=== PATIENT | male | born 1930 | race Caucasian/White ===

== ENCOUNTER 2016-12-06 19:40 | Observation (INO) | payer MEDICARE ==
--- NOTE | 2016-12-06 20:06 | EDM.PDOC ---
ED HPI GENERAL MEDICAL PROBLEM - General Chief Complaint: Respiratory Problem Stated Complaint: hard time breathing Time Seen by Provider: 12/06/16 20:03 Source of Information: Reports: Patient History Limitations: Reports: No Limitations - History of Present Illness INITIAL COMMENTS - FREE TEXT/NARRATIVE: states 2 months h/o sob, can't move about as much due to sob, no chest pain but his legs ache all the time, did see PMD but got no pills for his problems so he uses cold rag on his legs then rest and do nothing then pain goes away. Bilateral Leg Pain Score (Numeric/FACES): 4 - Related Data Allergies Allergy/AdvReac Type Severity Reaction Status Date / Time hydrochlorothiazide Allergy Fainting Verified 12/06/16 19:50 Home Meds: Home Meds Aspirin/Calcium Carbonate/Mag [Aspirin Buffered 325 mg Tab] 325 mg PO DAILY [History] Furosemide [Lasix] 20 mg PO DAILY 12/27/13 [History] Lisinopril [Lisinopril] 5 mg PO DAILY 12/27/13 [History] Metoprolol Succinate [Toprol Xl] 50 mg PO BID 12/27/13 [History] Oxazepam [Oxazepam] 15 mg PO BID PRN 12/27/13 [History] Warfarin [Coumadin] 5 mg PO DAILY 12/27/13 [History] Nitroglycerin 0.4 mg SL ATDISCHARGE PRN 06/07/14 [History] Past Medical History Cardiovascular History: Reports: Afib, CAD, High Cholesterol, Hypertension Psychiatric History: Reports: Anxiety - Infectious Disease History Infectious Disease History: Reports: Chicken Pox, Measles, Mumps - Past Surgical History Cardiovascular Surgical History: Reports: Coronary Artery Bypass, Coronary Artery Stent Social & Family History - Family History Family Medical History: Noncontributory - Tobacco Use Smoking Status *Q: Never Smoker Second Hand Smoke Exposure: No - Alcohol Use Days Per Week of Alcohol Use: 7 Number of Drinks Per Day: 1 Total Drinks Per Week: 7 - Recreational Drug Use Recreational Drug Use: No - Living Situation & Occupation Living situation: Reports: , with Spouse Occupation: Retired ED ROS GENERAL - Review of Systems Review Of Systems: ROS reveals no pertinent complaints other than HPI. ED EXAM, GENERAL - Physical Exam Exam: See Below Exam Limited By: No Limitations General Appearance: Alert, WD/WN, No Apparent Distress, Anxious Ears: Hearing Grossly Normal Nose: Normal Inspection Throat/Mouth: Normal Inspection, Normal Oropharynx, Normal Voice, No Airway Compromise Head: Atraumatic Neck: Non-Tender, Full Range of Motion Respiratory/Chest: No Respiratory Distress, No Accessory Muscle Use, Rhonchi. No: Decreased Breath Sounds, Retractions, Splinting, Prolonged Expiration Cardiovascular: Regular Rate, Rhythm GI/Abdominal: Soft, Non-Tender Extremities: Normal Inspection, Normal Range of Motion, Non-Tender, No Pedal Edema Neurological: Alert, Oriented, Normal Cognition, Normal Gait, No Motor/Sensory Deficits Psychiatric: Anxious Skin Exam: Warm, Dry, Normal Color Lymphatic: No Adenopathy Course - Vital Signs Last Recorded V/S: Last Vital Signs Temp 36.5 C 12/06/16 19:46 Pulse 69 12/06/16 19:46 Resp 18 12/06/16 19:46 BP 190/92 H 12/06/16 19:46 Pulse Ox 97 12/06/16 19:46 - Orders/Labs/Meds Orders: Active Orders 24 hr Category Date Time Status EKG 12 Lead [EKG Documentation Completion] [RC] STAT Care 12/06/16 21:17 Active Labs: Laboratory Tests 12/06/16 12/06/16 12/06/16 Range/Units 20:11 20:11 20:11 WBC 8.4 (5.0-10.0) 10^3/uL RBC 5.10 (4.6-6.2) 10^6/uL Hgb 13.8 L (14.0-18.0) g/dL Hct 40.9 (40.0-54.0) % MCV 80.2 (80-100) fL MCH 27.1 (27.0-34.0) pg MCHC 33.7 (33.0-35.0) g/dL Plt Count 196 (150-450) 10^3/uL Neut % (Auto) 60.2 (42.2-75.2) % Lymph % (Auto) 24.2 (20.5-50.1) % [place] % (Auto) 13.3 H (2-8) % Eos % (Auto) 1.8 (1.0-3.0) % Baso % (Auto) 0.5 (0.0-1.0) % PT 26.8 H (9.0-12.0) SEC INR 2.7 H (0.9-1.2) Sodium 130 L (135-145) mmol/L Potassium 5.0 (3.6-5.0) mmol/L Chloride 94 L (101-111) mmol/L Carbon Dioxide 26.0 (21.0-31.0) mmol/L Anion Gap 15.0 BUN 26 H (7-18) mg/dL Creatinine 1.4 H (0.6-1.3) mg/dL Est Cr Clr Drug Dosing 37.17 mL/min Estimated GFR (MDRD) 48 BUN/Creatinine Ratio 18.57 Glucose 99 (74-105) mg/dL Calcium 8.6 (8.4-10.2) mg/dl Total Bilirubin 1.1 H (0.2-1.0) mg/dL AST 23 (10-42) IU/L ALT 14 (10-60) IU/L Alkaline Phosphatase 67 (42-121) IU/L Troponin I 0.03 H* (0.00-0.02) ng/ml B-Natriuretic Peptide 995 H (0-100) pg/ml Total Protein 6.9 (6.7-8.2) g/dl Albumin 3.7 (3.2-5.5) g/dl Globulin 3.2 Albumin/Globulin Ratio 1.16 - Re-Assessments/Exams Free Text/Narrative Re-Assessment/Exam: 12/06/16 21:[address] Lala who kindly admitted pt to observation. Departure - Departure Time of Disposition: 21:37 Disposition: Refer to Observation Condition: Fair Clinical Impression: Pleural effusion, Elevated troponin, LUIS (dyspnea on exertion), Hyponatremia syndrome, Renal insufficiency syndrome Congestive heart failure Qualifiers: Congestive heart failure type: unspecified congestive heart failure type Congestive heart failure chronicity: acute on chronic Qualified Code(s): I50.9 - Heart failure, unspecified - Discharge Information Forms: ED Department Discharge - My Orders Last 24 Hours: My Active Orders 12/06/16 21:17 EKG 12 Lead [EKG Documentation Completion] [RC] STAT - Assessment/Plan Last 24 Hours: My Active Orders 12/06/16 21:17 EKG 12 Lead [EKG Documentation Completion] [RC] STAT
[2016-12-06] MEDS ORDERED: OXAZEPAM 15 MG PO PRN (22:22)
[2016-12-06] MEDS ORDERED: Zolpidem 5 MG Tab PO PRN (22:25)
[2016-12-06] MEDS ORDERED: Acetaminophen 325 MG Tab PO PRN (22:25)
[2016-12-06] MEDS ORDERED: Docusate Sodium 100 MG Cap PO PRN (22:25)
[2016-12-06] MEDS ORDERED: Sodium Chloride 0.9% 10 ML Syringe FLUSH PRN (22:25)
[2016-12-06] MEDS ORDERED: Simvastatin 10 MG Tab PO SCH (22:45)
--- NOTE | 2016-12-06 22:53 | PCM.HP ---
H&P History of Present Illness - General Date of Service: 12/06/16 Admit Problem/Dx: Admission Diagnosis/Problem Admission Diagnosis/Problem Weakness - History of Present Illness Initial Comments - Free Text/Narative: The patient is an 86-year-old gentleman with a history of anxiety, coronary artery disease, diet-controlled diabetes. The patient has been feeling increasing weakness in the past 2 months. He found that this is due to increasing of the imdur from 30-60 mg. His decreased his dose but the weakness did not improve. He admits lots of anxiety and taking benzodiazepine frequently. He also says he is short of breath with activity, shortness of breath is moderate. There is no associated chest pain. There is no cough, fever. Has trace lower extremity edema associated with episodes of leg pain. He lives with his who is equally elderly. He has thought about moving into an assisted living place. Bilateral Leg Pain Score (Numeric/FACES): 4 - Related Data Allergies/Adverse Reactions: Allergies Allergy/AdvReac Type Severity Reaction Status Date / Time hydrochlorothiazide Allergy Fainting Verified 12/06/16 19:50 Home Medications: Home Meds Aspirin/Calcium Carbonate/Mag [Aspirin Buffered 325 mg Tab] 325 mg PO DAILY [History] Furosemide [Lasix] 20 mg PO DAILY 12/27/13 [History] Lisinopril [Lisinopril] 5 mg PO DAILY 12/27/13 [History] Metoprolol Succinate [Toprol Xl] 50 mg PO BID 12/27/13 [History] Oxazepam [Oxazepam] 15 mg PO BID PRN 12/27/13 [History] Warfarin [Coumadin] 5 mg PO DAILY 12/27/13 [History] Nitroglycerin 0.4 mg SL ATDISCHARGE PRN 06/07/14 [History] Past Medical History Cardiovascular History: Reports: Afib, CAD, High Cholesterol, Hypertension Psychiatric History: Reports: Anxiety - Infectious Disease History Infectious Disease History: Reports: Chicken Pox, Measles, Mumps - Past Surgical History Cardiovascular Surgical History: Reports: Coronary Artery Bypass, Coronary Artery Stent Social & Family History - Family History Family Medical History: Noncontributory - Tobacco Use Smoking Status *Q: Never Smoker Second Hand Smoke Exposure: No - Alcohol Use Days Per Week of Alcohol Use: 7 Number of Drinks Per Day: 1 Total Drinks Per Week: 7 - Recreational Drug Use Recreational Drug Use: No - Living Situation & Occupation Living situation: Reports: , with Spouse Occupation: Retired H&P Review of Systems - Review of Systems: Review Of Systems: See Below General: Denies: Fever, Chills Pulmonary: Reports: Shortness of Breath. Denies: Wheezing, Pleuritic Chest Pain Cardiovascular: Reports: Palpitations, Edema. Denies: Chest Pain Gastrointestinal: Denies: Abdominal Pain Psychiatric: Reports: Anxiety Exam - Exam Exam: See Below - Vital Signs Vital Signs: Last Vital Signs Temp 36.6 C 12/06/16 21:58 Pulse 63 12/06/16 21:58 Resp 18 12/06/16 21:58 BP 186/71 H 12/06/16 21:58 Pulse Ox 99 12/06/16 21:58 Weight: 79.379 kg - Exam General: Alert, Oriented, Other (Anxious) Neck: Supple Lungs: Normal Respiratory Effort, Rales (Bilateral) Cardiovascular: Regular Rate, Regular Rhythm, Systolic Murmur Extremities: Pedal Edema (Bilateral 1+) Skin: Warm, Dry Neuro Extensive - Mental Status: Alert, Oriented x3 Psychiatric: Alert, Anxious - Patient Data Result Diagrams: 12/06/16 20:11 12/06/16 20:11 EKG INTERPRETATION EKG Date: 12/06/16 Rhythm: NSR EKG Interpretation Comments: LVH and first-degree AV block *Q Meaningful Use (ADM) - VTE *Q VTE Criteria *Q: - Stroke *Q Stroke Criteria *Q: - AMI *Q AMI Criteria *Q: - Problem List (1) Congestive heart failure SNOMED Code(s): 41912504 ICD Code: I50.9 - HEART FAILURE, UNSPECIFIED Status: Acute Current Visit : Yes Qualifiers: Congestive heart failure type: unspecified congestive heart failure type Congestive heart failure chronicity: acute on chronic Qualified Code(s): I50.9 - Heart failure, unspecified (2) Elevated troponin SNOMED Code(s): 062926733, 105193949 ICD Code: R74.8 - ABNORMAL LEVELS OF OTHER SERUM ENZYMES Status: Acute Current Visit: Yes (3) Hyponatremia syndrome SNOMED Code(s): 2515400 ICD Code: E87.1 - HYPO-OSMOLALITY AND HYPONATREMIA Status: Acute Current Visit: Yes Problem List Initiated/Reviewed/Updated: Yes Orders Last 24hrs: Active Orders 24 hr Category Date Time Status Patient Status [ADT] Routine ADT 12/06/16 22:25 Ordered Antiembolic Devices [RC] PER UNIT ROUTINE Care 12/06/16 22:27 Ordered Oxygen Therapy [RC] PRN Care 12/06/16 22:25 Ordered Peripheral IV Care [RC] . DIRECTED Care 12/06/16 22:27 Ordered Telemetry Monitoring [Cardiac Monitoring] [RC] . Care 12/06/16 22:25 Ordered DIRECTED Up With Assistance [RC] ASDIRECTED Care 12/06/16 22:25 Ordered VTE/DVT Education [RC] PER UNIT ROUTINE Care 12/06/16 22:25 Ordered Vital Signs [RC] Q4H Care 12/06/16 22:25 Ordered OT Evaluation and Treatment [CONS] Routine Cons 12/06/16 22:24 Ordered PT Evaluation and Treatment [CONS] Routine Cons 12/06/16 22:24 Ordered 2 Gram Sodium Diet [DIET] Diet 12/06/16 Breakfast Ordered B-TYPE NATRIURETIC PEPTIDE,BNP [CHEM] AM Lab 12/08/16 05:11 Ordered BASIC METABOLIC PANEL,BMP [CHEM] AM Lab 12/07/16 05:15 Ordered CBC WITH AUTO DIFF [HEME] AM Lab 12/07/16 05:15 Ordered INR,PT,PROTHROMBIN TIME [COAG] AM Lab 12/07/16 05:15 Ordered TROPONIN I [CHEM] AM Lab 12/07/16 05:11 Ordered Acetaminophen [Tylenol] Med 12/06/16 22:25 Ordered 650 mg PO Q4H PRN Aspirin/Calcium Carbonate/Mag [Aspirin Buffered 325 mg Med 12/07/16 09:00 Ordered Tab] 325 mg PO DAILY Docusate Sodium [Colace] Med 12/06/16 22:25 Ordered 100 mg PO BID PRN Furosemide [Lasix] Med 12/06/16 22:30 Ordered 20 mg PO BID Isosorbide Mononitrate [Imdur] Med 12/06/16 22:45 Ordered 30 mg PO ACBREAKFAST Lisinopril [Prinivil] Med 12/07/16 09:00 Ordered 10 mg PO DAILY Metoprolol Succinate [Toprol Xl] Med 12/07/16 09:00 Ordered 50 mg PO BID Oxazepam [Oxazepam] Med 12/06/16 22:22 Ordered 15 mg PO .Q6H PRN Simvastatin [Zocor] Med 12/06/16 22:45 Ordered 80 mg PO BEDTIME Sodium Chloride 0.9% [Saline Flush] Med 12/06/16 22:25 Ordered 10 ml FLUSH ASDIRECTED PRN Warfarin [Coumadin] Med 12/07/16 09:00 Ordered 5 mg PO DAILY Zolpidem [Ambien] Med 12/06/16 22:25 Ordered 5 mg PO BEDTIME PRN Antiembolic Hose [OM.PC] Per Unit Routine Oth 12/06/16 22:26 Ordered Peripheral IV Insertion Adult [OM.PC] Routine Oth 12/06/16 22:25 Ordered Saline Lock Insert [OM.PC] Routine Oth 12/06/16 22:25 Ordered Resuscitation Status Routine Resus Stat 12/06/16 22:25 Ordered Medication Orders Acetaminophen (Tylenol) 650 mg PO Q4H PRN PRN Reason: Pain (Mild 1-3)/fever Docusate Sodium (Colace) 100 mg PO BID PRN PRN Reason: Constipation Furosemide (Lasix) 20 mg PO BIDDIURETIC LOGAN Isosorbide Mononitrate (Imdur) 30 mg PO ACBREAKFAST LOGAN Lisinopril (Prinivil) 10 mg PO DAILY LOGAN Non-Formulary Medication (Aspirin/Calcium Carbonate/Mag [Aspirin Buffered 325 Mg Tab]) 325 mg PO DAILY LOGAN Non-Formulary Medication (Metoprolol Succinate [Toprol Xl]) 50 mg PO BID LOGAN Non-Formulary Medication (Oxazepam [Oxazepam]) 15 mg PO .Q6H PRN PRN Reason: Anxiety Simvastatin (Zocor) 80 mg PO BEDTIME LOGAN Sodium Chloride (Saline Flush) 10 ml FLUSH ASDIRECTED PRN PRN Reason: Keep Vein Open Warfarin Sodium (Coumadin) 5 mg PO DAILY LOGAN Zolpidem Tartrate (Ambien) 5 mg PO BEDTIME PRN PRN Reason: Sleep Assessment/Plan Comment:: #1 weakness This is likely multifactorial including age, acute congestive heart failure, aortic stenosis, anxiety Will ask physical and occupational therapy for an evaluation and treatment #2 acute congestive heart failure Likely due to diastolic dysfunction per Dr. Castellano's notes the patient's most recent echocardiogram in [place] which showed good ejection fraction I will increase the patient's diuretic to twice a day Continue FE inhibitor, metoprolol #3 minimally elevated troponin The patient is hemodynamically stable, no chest pain This is likely secondary to renal insufficiency and congestive heart failure We'll monitor the patient on telemetry, check troponin in the morning Continue treatment for coronary artery disease with aspirin, metoprolol, statin , FE inhibitor #4 hyponatremia Likely chronic Will follow with increased diuretics #5 anxiety continue oxazepam #6 the patient has a history of "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
[2016-12-06] MEDS: ALPRAZolam 0.25 MG Tab PO PRN (23:20)
[2016-12-06] MEDS: Isosorbide Mononitrate 30 MG Tab.ER PO SCH (23:20)
[2016-12-06] MEDS: Furosemide 20 MG Tab PO SCH (23:21)
[2016-12-07] MEDS ORDERED: Lisinopril 5 MG Tab PO SCH (09:00)
[2016-12-07] MEDS ORDERED: Metoprolol Succinate 50 MG Tab.ER PO SCH (09:00)
[2016-12-07] MEDS: Furosemide 20 MG Tab PO SCH ×2 (09:59→14:12)
[2016-12-07] MEDS: Aspirin 325 MG Tab.EC PO SCH (09:59)
[2016-12-07] MEDS: Lisinopril 10 MG Tab PO SCH (09:59)
[2016-12-07] MEDS: ALPRAZolam 0.25 MG Tab PO PRN (10:02)
[2016-12-07] MEDS: OXAZEPAM 15 MG PO PRN ×2 (10:46→18:14)
--- NOTE | 2016-12-07 11:34 | PCM.PN ---
- General Info Date of Service: 12/07/16 Admission Dx/Problem (Free Text): Admission Diagnosis/Problem Admission Diagnosis/Problem Weakness Subjective Update: Feeling better, noted that he had no cough since admission. Had anxiety which improved after he took oxazepam. No current shortness of breath. Functional Status: Reports: Pain Controlled, Tolerating Diet - Review of Systems General: Reports: Weakness. Denies: Fever Pulmonary: Denies: Shortness of Breath Cardiovascular: Denies: Chest Pain Gastrointestinal: Denies: Abdominal Pain Genitourinary: Denies: Dysuria - Patient Data Vitals - Most Recent: Last Vital Signs Temp 37.2 C 12/07/16 07:00 Pulse 56 L 12/07/16 10:00 Resp 22 H 12/07/16 07:00 BP 140/58 L 12/07/16 10:00 Pulse Ox 93 L 12/07/16 07:00 Weight - Most Recent: 79.152 kg I&O - Last 24 Hours: Intake & Output 12/06/16 12/07/16 12/07/16 22:59 06:59 14:59 Intake Total 240 400 Output Total 425 350 Balance -185 50 Lab Results Last 24 Hours: Laboratory Results - last 24 hr 12/07/16 12/07/16 12/07/16 Range/Units 06:00 06:00 06:00 WBC 8.8 (5.0-10.0) 10^3/uL RBC 4.88 (4.6-6.2) 10^6/uL Hgb 13.1 L (14.0-18.0) g/dL Hct 39.0 L (40.0-54.0) % MCV 79.9 L (80-100) fL MCH 26.8 L (27.0-34.0) pg MCHC 33.6 (33.0-35.0) g/dL Plt Count 186 (150-450) 10^3/uL Neut % (Auto) 66.4 (42.2-75.2) % Lymph % (Auto) 17.0 L (20.5-50.1) % [place] % (Auto) 14.3 H (2-8) % Eos % (Auto) 1.8 (1.0-3.0) % Baso % (Auto) 0.5 (0.0-1.0) % PT 24.2 H (9.0-12.0) SEC INR 2.4 H (0.9-1.2) Sodium 131 L (135-145) mmol/L Potassium 4.2 (3.6-5.0) mmol/L Chloride 97 L (101-111) mmol/L Carbon Dioxide 26.0 (21.0-31.0) mmol/L Anion Gap 12.2 BUN 25 H (7-18) mg/dL Creatinine 1.3 (0.6-1.3) mg/dL Est Cr Clr Drug Dosing 40.03 mL/min Estimated GFR (MDRD) 52 Glucose 100 (74-105) mg/dL Calcium 8.4 (8.4-10.2) mg/dl Troponin I 0.04 H* (0.00-0.02) ng/ml Med Orders - Current: Current Medications Acetaminophen (Tylenol) 650 mg PO Q4H PRN PRN Reason: Pain (Mild 1-3)/fever Aspirin (Ecotrin) 325 mg PO DAILY [facility] Last Admin: 12/07/16 09:59 Dose: 325 mg Docusate Sodium (Colace) 100 mg PO BID PRN PRN Reason: Constipation Furosemide (Lasix) 20 mg PO BIDDIURETIC [facility], [facility] Last Admin: 12/07/16 09:59 Dose: 20 mg Isosorbide Mononitrate (Imdur) 30 mg PO ACBREAKFAST [facility] Last Admin: 12/06/16 23:20 Dose: 30 mg Lisinopril (Prinivil) 10 mg PO DAILY [facility] Last Admin: 12/07/16 09:59 Dose: 10 mg Metoprolol Succinate (Toprol Xl) 50 mg PO BID [facility] Last Admin: 12/07/16 10:00 Dose: 50 mg Oxazepam 15mg Pt's (Own Med) 1 each PO Q6H PRN PRN Reason: Anxiety Last Admin: 12/07/16 10:46 Dose: 1 each Sodium Chloride (Saline Flush) 10 ml FLUSH ASDIRECTED PRN PRN Reason: Keep Vein Open Warfarin Sodium (Coumadin) 5 mg PO DAILY@1400 [facility] Zolpidem Tartrate (Ambien) 5 mg PO BEDTIME PRN PRN Reason: Sleep Last Admin: 12/07/16 01:58 Dose: 5 mg Discontinued Medications Alprazolam (Xanax) 0.25 mg PO Q8H PRN PRN Reason: Anxiety Last Admin: 12/07/16 10:02 Dose: 0.25 mg Lisinopril (Prinivil) 5 mg PO DAILY [facility] Non-Formulary Medication (Oxazepam [Oxazepam]) 15 mg PO .Q6H PRN PRN Reason: Anxiety Simvastatin (Zocor) 80 mg PO BEDTIME LOGAN Last Admin: 12/06/16 23:10 Dose: Not Given - Exam General: Alert, Oriented Neck: Supple Lungs: Normal Respiratory Effort, Decreased Breath Sounds, Rales (Basilar). No : Wheezing GI/Abdominal Exam: Normal Bowel Sounds, Soft, Non-Tender Extremities: No Pedal Edema Skin: Warm, Dry, Intact Psy/Mental Status: Alert, Normal Affect, Normal Mood - Problem List & Annotations (1) Congestive heart failure SNOMED Code(s): 02010689 Code(s): I50.9 - HEART FAILURE, UNSPECIFIED Status: Acute Current Visit: Yes Qualifiers: Congestive heart failure type: unspecified congestive heart failure type Congestive heart failure chronicity: acute on chronic Qualified Code(s): I50.9 - Heart failure, unspecified (2) Elevated troponin SNOMED Code(s): 721654416, 202748738 Code(s): R74.8 - ABNORMAL LEVELS OF OTHER SERUM ENZYMES Status: Acute Current Visit: Yes (3) Hyponatremia syndrome SNOMED Code(s): 2246089 Code(s): E87.1 - HYPO-OSMOLALITY AND HYPONATREMIA Status: Acute Current Visit: Yes - Problem List Review Problem List Initiated/Reviewed/Updated: Yes - My Orders Last 24 Hours: My Active Orders 12/06/16 22:24 OT Evaluation and Treatment [CONS] Routine PT Evaluation and Treatment [CONS] Routine 12/06/16 22:25 Patient Status [ADT] Routine Oxygen Therapy [RC] PRN Telemetry Monitoring [Cardiac Monitoring] [RC] . DIRECTED Up With Assistance [RC] ASDIRECTED VTE/DVT Education [RC] PER UNIT ROUTINE Vital Signs [RC] 03,07,11,15,19,23 Acetaminophen [Tylenol] 650 mg PO Q4H PRN Docusate Sodium [Colace] 100 mg PO BID PRN Sodium Chloride 0.9% [Saline Flush] 10 ml FLUSH ASDIRECTED PRN Zolpidem [Ambien] 5 mg PO BEDTIME PRN Peripheral IV Insertion Adult [OM.PC] Routine Saline Lock Insert [OM.PC] Routine Resuscitation Status Routine 12/06/16 22:26 Antiembolic Hose [OM.PC] Per Unit Routine 12/06/16 22:27 Antiembolic Devices [RC] PER UNIT ROUTINE Peripheral IV Care [RC] BID 12/06/16 22:30 Furosemide [Lasix] 20 mg PO BIDDIURETIC 12/06/16 22:45 Isosorbide Mononitrate [Imdur] 30 mg PO ACBREAKFAST 12/07/16 09:00 Aspirin [Ecotrin] 325 mg PO DAILY Lisinopril [Prinivil] 10 mg PO DAILY Metoprolol Succinate [Toprol XL] 50 mg PO BID 12/07/16 10:37 Patient's Own Medication [Ptom] 1 each PO Q6H PRN 12/07/16 14:00 Warfarin [Coumadin] 5 mg PO DAILY@1400 12/08/16 05:11 B-TYPE NATRIURETIC PEPTIDE,BNP [CHEM] AM 12/08/16 05:15 BASIC METABOLIC PANEL,BMP [CHEM] AM CBC WITH AUTO DIFF [HEME] AM INR,PT,PROTHROMBIN TIME [COAG] AM - Plan Plan:: #1 weakness This is likely multifactorial including age, acute congestive heart failure, aortic stenosis, anxiety Will ask physical and occupational therapy for an evaluation and treatment #2 acute congestive heart failure Likely due to diastolic dysfunction per Dr. Castelalno's notes the patient's most recent echocardiogram in [place] which showed good ejection fraction I have increased the patient's diuretic to twice a day Continue FE inhibitor, metoprolol #3 minimally elevated troponin The patient is hemodynamically stable, no chest pain This is likely secondary to renal insufficiency and congestive heart failure This remains stable Continue treatment for coronary artery disease with aspirin, metoprolol, statin , FE inhibitor #4 hyponatremia Likely chronic Will follow with increased diuretics #5 anxiety continue oxazepam #6 the patient has a history of "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
[2016-12-07] MEDS: Isosorbide Mononitrate 30 MG Tab.ER PO SCH (12:20)
[2016-12-07] MEDS: Warfarin 5 MG Tab PO SCH (14:12)
[2016-12-07] MEDS: Metoprolol Succinate 25 MG Tab.ER PO SCH (21:18)
[2016-12-08] MEDS: OXAZEPAM 15 MG PO PRN ×2 (00:53→10:29)
[2016-12-08] MEDS: Isosorbide Mononitrate 30 MG Tab.ER PO SCH (06:07)
[2016-12-08] MEDS: Furosemide 20 MG Tab PO SCH ×2 (09:21→13:44)
[2016-12-08] MEDS: Aspirin 325 MG Tab.EC PO SCH (09:21)
[2016-12-08] MEDS: Metoprolol Succinate 25 MG Tab.ER PO SCH (09:21)
[2016-12-08] MEDS: Lisinopril 10 MG Tab PO SCH (09:22)
--- NOTE | 2016-12-08 10:32 | PCM.DCSUM1 ---
Discharge Summary - Hospital Course Free Text/Narrative:: Presented with weakness #1 weakness This is likely multifactorial including age, acute congestive heart failure, aortic stenosis, anxiety, bradycardia Was working with physical and occupational therapy Recommendation was assisted living placement The patient and family discussed this and they will be working on it in the near future #2 acute congestive heart failure Likely due to diastolic dysfunction per Dr. Castellano's notes the patient's most recent echocardiogram in [place] which showed good ejection fraction I have increased the patient's diuretic to twice a day Continue FE inhibitor, I have decreased the metoprolol metoprolol due to bradycardia #3 minimally elevated troponin The patient is hemodynamically stable, no chest pain This is likely secondary to renal insufficiency and congestive heart failure This remains stable Continue treatment for coronary artery disease with aspirin, metoprolol, statin , FE inhibitor #4 hyponatremia follow periodically with increased diuretics #5 anxiety continue oxazepam #6 the patient has a history of "clot on his aortic valve" with history of bioprosthetic valve placement He has been on therapeutic anticoagulation with Coumadin #7 diet-controlled diabetes Controlled - Discharge Data Discharge Date: 12/08/16 Discharge Disposition: Home, Self-Care 01 Condition: Fair - Discharge Diagnosis/Problem(s) (1) Congestive heart failure SNOMED Code(s): 67316757 ICD Code: I50.9 - HEART FAILURE, UNSPECIFIED Status: Acute Current Visit : Yes Qualifiers: Congestive heart failure type: unspecified congestive heart failure type Congestive heart failure chronicity: acute on chronic Qualified Code(s): I50.9 - Heart failure, unspecified (2) Elevated troponin SNOMED Code(s): 901468298, 839770084 ICD Code: R74.8 - ABNORMAL LEVELS OF OTHER SERUM ENZYMES Status: Acute Current Visit: Yes (3) Hyponatremia syndrome SNOMED Code(s): 9431273 ICD Code: E87.1 - HYPO-OSMOLALITY AND HYPONATREMIA Status: Acute Current Visit: Yes - Patient Summary/Data Consults: Consultations 12/06/16 22:24 OT Evaluation and Treatment [CONS] Routine PT Evaluation and Treatment [CONS] Routine - Patient Instructions Diet: Usual Diet as Tolerated Activity: As Tolerated - Discharge Plan Prescriptions/Med Rec: Furosemide [Lasix] 20 mg PO BIDDIURETIC #60 tablet Lisinopril [Prinivil] 10 mg PO DAILY #30 tablet Metoprolol Succinate [Toprol XL] 25 mg PO BID #60 tab.er Home Medications: Home Meds Aspirin/Calcium Carbonate/Mag [Aspirin Buffered 325 mg Tab] 325 mg PO DAILY [History] Oxazepam 15 mg PO BID PRN 12/27/13 [History] Warfarin [Coumadin] 5 mg PO DAILY 12/27/13 [History] Nitroglycerin 0.4 mg SL ATDISCHARGE PRN 06/07/14 [History] Triamcinolone Acetonide [Triamcinolone Acetonide 0.1% Oint] 1 applic TOP BID [History] Furosemide [Lasix] 20 mg PO BIDDIURETIC #60 tablet 12/08/16 [Rx] Isosorbide Mononitrate [Imdur] 30 mg PO ACBREAKFAST tab.er 12/08/16 [Rx] Lisinopril [Prinivil] 10 mg PO DAILY #30 tablet 12/08/16 [Rx] Metoprolol Succinate [Toprol XL] 25 mg PO BID #60 tab.er 12/08/16 [Rx] Patient Handouts: Warfarin: What You Need to Know Referrals: PCP,None [Primary Care Provider] - (dr. Castellano in 3-4 days) - Discharge Summary/Plan Comment DC Time >30 min.: No - General Info Date of Service: 12/08/16 Admission Dx/Problem (Free Text: Admission Diagnosis/Problem Admission Diagnosis/Problem Weakness Subjective Update: Feeling better, Had anxiety which improved after he took oxazepam. No current shortness of breath. Has been able to ambulate on the corridor well. - Review of Systems General: Reports: Weakness. Denies: Fever Pulmonary: Denies: Shortness of Breath Cardiovascular: Denies: Chest Pain Gastrointestinal: Denies: Abdominal Pain Neurological: Denies: Confusion - Patient Data Vitals - Most Recent: Last Vital Signs Temp 36.9 C 12/08/16 06:58 Pulse 68 12/08/16 09:21 Resp 20 12/08/16 06:58 BP 142/55 H 12/08/16 09:22 Pulse Ox 98 12/08/16 06:58 Weight - Most Recent: 78.613 kg I&O - Last 24 hours: Intake & Output 12/07/16 12/08/16 12/08/16 22:59 06:59 14:59 Intake Total 500 100 Output Total 775 225 Balance -275 -125 Lab Results - Last 24 hrs: Laboratory Results - last 24 hr 12/08/16 12/08/16 12/08/16 Range/Units 06:00 06:00 06:00 WBC 7.5 (5.0-10.0) 10^3/uL RBC 4.77 (4.6-6.2) 10^6/uL Hgb 12.9 L (14.0-18.0) g/dL Hct 38.2 L (40.0-54.0) % MCV 80.1 (80-100) fL MCH 27.0 (27.0-34.0) pg MCHC 33.8 (33.0-35.0) g/dL Plt Count 177 (150-450) 10^3/uL Neut % (Auto) 59.6 (42.2-75.2) % Lymph % (Auto) 21.5 (20.5-50.1) % [place] % (Auto) 15.7 H (2-8) % Eos % (Auto) 2.8 (1.0-3.0) % Baso % (Auto) 0.4 (0.0-1.0) % PT 25.2 H (9.0-12.0) SEC INR 2.5 H (0.9-1.2) Sodium 129 L (135-145) mmol/L Potassium 4.1 (3.6-5.0) mmol/L Chloride 94 L (101-111) mmol/L Carbon Dioxide 26.0 (21.0-31.0) mmol/L Anion Gap 13.1 BUN 22 H (7-18) mg/dL Creatinine 1.2 (0.6-1.3) mg/dL Est Cr Clr Drug Dosing 43.37 mL/min Estimated GFR (MDRD) 57 Glucose 104 (74-105) mg/dL Calcium 8.4 (8.4-10.2) mg/dl B-Natriuretic Peptide 766 H (0-100) pg/ml Med Orders - Current: Current Medications Acetaminophen (Tylenol) 650 mg PO Q4H PRN PRN Reason: Pain (Mild 1-3)/fever Last Admin: 12/07/16 16:15 Dose: 650 mg Aspirin (Ecotrin) 325 mg PO DAILY [facility] Last Admin: 12/08/16 09:21 Dose: 325 mg Docusate Sodium (Colace) 100 mg PO BID PRN PRN Reason: Constipation Furosemide (Lasix) 20 mg PO BIDDIURETIC [facility] Last Admin: 12/08/16 09:21 Dose: 20 mg Isosorbide Mononitrate (Imdur) 30 mg PO ACBREAKFAST [facility] Last Admin: 12/08/16 06:07 Dose: 30 mg Lisinopril (Prinivil) 10 mg PO DAILY [facility] Last Admin: 12/08/16 09:22 Dose: 10 mg Metoprolol Succinate (Toprol Xl) 25 mg PO BID [facility] Last Admin: 12/08/16 09:21 Dose: 25 mg Oxazepam 15mg Pt's (Own Med) 1 each PO Q6H PRN PRN Reason: Anxiety Last Admin: 12/08/16 00:53 Dose: 1 each Sodium Chloride (Saline Flush) 10 ml FLUSH ASDIRECTED PRN PRN Reason: Keep Vein Open Warfarin Sodium (Coumadin) 5 mg PO DAILY@1400 [facility] Last Admin: 12/07/16 14:12 Dose: 5 mg Zolpidem Tartrate (Ambien) 5 mg PO BEDTIME PRN PRN Reason: Sleep Last Admin: 12/07/16 01:58 Dose: 5 mg Discontinued Medications Alprazolam (Xanax) 0.25 mg PO Q8H PRN PRN Reason: Anxiety Last Admin: 12/07/16 10:02 Dose: 0.25 mg Lisinopril (Prinivil) 5 mg PO DAILY [facility] Metoprolol Succinate (Toprol Xl) 50 mg PO BID [facility] Last Admin: 12/07/16 10:00 Dose: 50 mg Non-Formulary Medication (Oxazepam [Oxazepam]) 15 mg PO .Q6H PRN PRN Reason: Anxiety Simvastatin (Zocor) 80 mg PO BEDTIME [facility] Last Admin: 12/06/16 23:10 Dose: Not Given - Exam Quality Assessment: Denies: Supplemental Oxygen General: Reports: Alert, Oriented Neck: Reports: Supple Lungs: Reports: Normal Respiratory Effort, Decreased Breath Sounds Cardiovascular: Reports: Regular Rate, Regular Rhythm Extremities: No Pedal Edema Skin: Reports: Warm, Dry *Q Meaningful Use (DIS) - VTE *Q VTE Criteria *Q: - Stroke *Q Stroke Criteria *Q: - AMI *Q AMI Criteria *Q:
[2016-12-08 10:47] VITALS: BP 175/60
[2016-12-08] MEDS: Warfarin 5 MG Tab PO SCH (13:44)
--- NOTE | 2016-12-09 15:07 | EKG ---
12/06/2016- MARY AMARAL - EKG per my reading shows sinus rhythm at the rate of 55 with LVH. [facility] /[id number]
== END 2016-12-08 14:40 | disposition home or self-care (01) ==
LOC: DL.ED 19:40 → DL.MS 21:50
PROVIDERS: ADMIT Internal Medicine; ATTEND Internal Medicine
DX: R53.1 Weakness (principal); I11.0 Hypertensive heart disease with heart failure; I50.9 Heart failure, unspecified; R74.8 Abnormal levels of other serum enzymes; E87.1 Hypo-osmolality and hyponatremia; F41.9 Anxiety disorder, unspecified; E11.9 Type 2 diabetes mellitus without complications; I48.91 Unspecified atrial fibrillation; I25.10 Atherosclerotic heart disease of native coronary artery without angina pectoris; E78.00 Pure hypercholesterolemia, unspecified; Z79.01 Long term (current) use of anticoagulants; Z79.82 Long term (current) use of aspirin; Z79.899 Other long term (current) drug therapy; Z88.8 Allergy status to other drugs, medicaments and biological substances; Z95.1 Presence of aortocoronary bypass graft; Z95.5 Presence of coronary angioplasty implant and graft
CPT/HCPCS: 36415; 71010; 80048; 80053; 83880; 84484; 85025; 85610; 93005; 93010; 97161; 97165; 99285; A9270; G0378; 99217; 99225; 99284

== ENCOUNTER 2016-12-16 12:55 | Emergency (ER) | payer MEDICARE ==
--- NOTE | 2016-12-16 13:12 | EDM.PDOC ---
ED HPI GENERAL MEDICAL PROBLEM - General Chief Complaint: General Stated Complaint: [id number] HEART PROBLEMS Time Seen by Provider: 12/16/16 13:11 Source of Information: Reports: Patient, Family History Limitations: Reports: No Limitations - History of Present Illness INITIAL COMMENTS - FREE TEXT/NARRATIVE: Patient presents to the ER with and granddaughter with vague complaints of feeling as if his heart rate and blood pressure "weren't right". He states he is not sure if his blood pressure machine at home is working correctly. Patient states he is short of breath at times but not at this time. Denies fever/chills , chest pain. - Related Data Allergies Allergy/AdvReac Type Severity Reaction Status Date / Time hydrochlorothiazide Allergy Fainting Verified 12/29/16 21:50 Home Meds: Home Meds Aspirin/Calcium Carbonate/Mag [Aspirin Buffered 325 mg Tab] 325 mg PO DAILY [History] Oxazepam 15 mg PO ASDIRECTED PRN 12/27/13 [History] Warfarin [Coumadin] 1 - 2 tab PO ASDIRECTED 12/27/13 [History] Nitroglycerin 0.4 mg SL ATDISCHARGE PRN 06/07/14 [History] Triamcinolone Acetonide [Triamcinolone Acetonide 0.1% Oint] 1 applic TOP BID [History] Lisinopril [Prinivil] 10 mg PO DAILY #30 tablet 12/08/16 [Rx] Furosemide [Lasix] 20 mg PO DAILY 12/16/16 [History] Metoprolol Succinate [Toprol XL] 25 mg PO DAILY 12/16/16 [History] Past Medical History HEENT History: Reports: Hard of Hearing Cardiovascular History: Reports: Afib, CAD, High Cholesterol, Hypertension Psychiatric History: Reports: Anxiety - Infectious Disease History Infectious Disease History: Reports: Chicken Pox, Measles, Mumps - Past Surgical History Cardiovascular Surgical History: Reports: Coronary Artery Bypass, Coronary Artery Stent Social & Family History - Family History Family Medical History: Noncontributory - Tobacco Use Smoking Status *Q: Never Smoker Second Hand Smoke Exposure: No - Caffeine Use Caffeine Use: Reports: Coffee - Alcohol Use Days Per Week of Alcohol Use: 7 Number of Drinks Per Day: 1 Total Drinks Per Week: 7 - Recreational Drug Use Recreational Drug Use: No - Living Situation & Occupation Living situation: Reports: , with Spouse Occupation: Retired ED ROS GENERAL - Review of Systems Review Of Systems: See Below Constitutional: Reports: Weakness, Fatigue HEENT: Reports: No Symptoms, Glasses Respiratory: Reports: Shortness of Breath Cardiovascular: Reports: Blood Pressure Problem, Dyspnea on Exertion Endocrine: Reports: No Symptoms GI/Abdominal: Reports: No Symptoms Musculoskeletal: Reports: No Symptoms Neurological: Reports: No Symptoms Psychiatric: Reports: No Symptoms Hematologic/Lymphatic: Reports: No Symptoms Immunologic: Reports: No Symptoms ED EXAM, GENERAL - Physical Exam Exam: See Below Exam Limited By: No Limitations General Appearance: Alert, WD/WN, No Apparent Distress Head: Atraumatic, Normocephalic Neck: Normal Inspection, Supple, Non-Tender Respiratory/Chest: No Respiratory Distress, Decreased Breath Sounds, Crackles ( bilat bases) Cardiovascular: Normal Peripheral Pulses, Regular Rate, Rhythm, Other (Murmur) GI/Abdominal: Normal Bowel Sounds, Soft, Non-Tender Back Exam: Normal Inspection Extremities: Normal Inspection Neurological: Alert, Oriented Psychiatric: Normal Affect, Normal Mood Skin Exam: Warm, Dry, Intact, Normal Color Lymphatic: No Adenopathy EKG INTERPRETATION EKG Date: 12/16/16 Time: 13:57 Rhythm: Other (first degree av block) Rate (Beats/Min): 60 [place]: LAD-Left [place] Deviation P-Wave: Present QRS: Normal ST-T: Normal QT: Prolonged Course - Vital Signs Last Recorded V/S: Last Vital Signs Temp 97.8 F 12/16/16 13:29 Pulse 59 L 12/16/16 14:00 Resp 20 12/16/16 14:00 BP 149/57 H 12/16/16 14:00 Pulse Ox 99 12/16/16 14:00 - Orders/Labs/Meds Labs: Laboratory Tests 12/16/16 12/16/16 12/16/16 Range/Units 13:43 13:43 13:43 WBC 9.4 (5.0-10.0) 10^3/uL RBC 5.52 (4.6-6.2) 10^6/uL Hgb 14.8 (14.0-18.0) g/dL Hct 43.7 (40.0-54.0) % MCV 79.2 L (80-100) fL MCH 26.8 L (27.0-34.0) pg MCHC 33.9 (33.0-35.0) g/dL Plt Count 231 (150-450) 10^3/uL Neut % (Auto) 70.0 (42.2-75.2) % Lymph % (Auto) 14.6 L (20.5-50.1) % [place] % (Auto) 14.4 H (2-8) % Eos % (Auto) 0.7 L (1.0-3.0) % Baso % (Auto) 0.3 (0.0-1.0) % PT (9.0-12.0) SEC INR (0.9-1.2) Sodium 129 L (135-145) mmol/L Potassium 4.5 (3.6-5.0) mmol/L Chloride 92 L (101-111) mmol/L Carbon Dioxide 25.0 (21.0-31.0) mmol/L Anion Gap 16.5 BUN 23 H (7-18) mg/dL Creatinine 1.3 (0.6-1.3) mg/dL Est Cr Clr Drug Dosing 40.03 mL/min Estimated GFR (MDRD) 52 BUN/Creatinine Ratio 17.69 Glucose 100 (74-105) mg/dL Calcium 8.8 (8.4-10.2) mg/dl Magnesium 1.9 (1.8-2.5) mg/dL Total Bilirubin 0.9 (0.2-1.0) mg/dL AST 24 (10-42) IU/L ALT 15 (10-60) IU/L Alkaline Phosphatase 69 (42-121) IU/L Troponin I 0.02 (0.00-0.02) ng/ml B-Natriuretic Peptide 516 H (0-100) pg/ml Total Protein 7.4 (6.7-8.2) g/dl Albumin 3.8 (3.2-5.5) g/dl Globulin 3.6 Albumin/Globulin Ratio 1.06 TSH, Ultra Sensitive (0.35-7.0) uIu/mL Urine Color (YELLOW) Urine Appearance (CLEAR) Urine pH (5.0-9.0) Ur Specific [place] (1.005-1.030) Urine Protein (NEGATIVE) Urine Glucose (UA) (NEGATIVE) Urine Ketones (NEGATIVE) Urine Occult Blood (NEGATIVE) Urine Nitrite (NEGATIVE) Urine Bilirubin (NEGATIVE) Urine Urobilinogen (0.2-1.0) mg/dL Ur Leukocyte Esterase (NEGATIVE) Urine RBC /HPF Urine WBC (0-5/HPF) /HPF Ur Epithelial Cells /HPF Urine Bacteria (0-FEW/HPF) /HPF Urine Mucus /LPF 12/16/16 12/16/16 12/16/16 Range/Units 13:43 13:43 14:29 WBC (5.0-10.0) 10^3/uL RBC (4.6-6.2) 10^6/uL Hgb (14.0-18.0) g/dL Hct (40.0-54.0) % MCV (80-100) fL MCH (27.0-34.0) pg MCHC (33.0-35.0) g/dL Plt Count (150-450) 10^3/uL Neut % (Auto) (42.2-75.2) % Lymph % (Auto) (20.5-50.1) % [place] % (Auto) (2-8) % Eos % (Auto) (1.0-3.0) % Baso % (Auto) (0.0-1.0) % PT 23.5 H (9.0-12.0) SEC INR 2.3 H (0.9-1.2) Sodium (135-145) mmol/L Potassium (3.6-5.0) mmol/L Chloride (101-111) mmol/L Carbon Dioxide (21.0-31.0) mmol/L Anion Gap BUN (7-18) mg/dL Creatinine (0.6-1.3) mg/dL Est Cr Clr Drug Dosing mL/min Estimated GFR (MDRD) BUN/Creatinine Ratio Glucose (74-105) mg/dL Calcium (8.4-10.2) mg/dl Magnesium (1.8-2.5) mg/dL Total Bilirubin (0.2-1.0) mg/dL AST (10-42) IU/L ALT (10-60) IU/L Alkaline Phosphatase (42-121) IU/L Troponin I (0.00-0.02) ng/ml B-Natriuretic Peptide (0-100) pg/ml Total Protein (6.7-8.2) g/dl Albumin (3.2-5.5) g/dl Globulin Albumin/Globulin Ratio TSH, Ultra Sensitive 1.60 (0.35-7.0) uIu/mL Urine Color Yellow (YELLOW) Urine Appearance Slightly cloudy (CLEAR) Urine pH 5.0 (5.0-9.0) Ur Specific [place] <= 1.005 (1.005-1.030) Urine Protein Negative (NEGATIVE) Urine Glucose (UA) Negative (NEGATIVE) Urine Ketones Negative (NEGATIVE) Urine Occult Blood Trace-lysed H (NEGATIVE) Urine Nitrite Negative (NEGATIVE) Urine Bilirubin Negative (NEGATIVE) Urine Urobilinogen 0.2 (0.2-1.0) mg/dL Ur Leukocyte Esterase Negative (NEGATIVE) Urine RBC 0-5 /HPF Urine WBC Not seen (0-5/HPF) /HPF Ur Epithelial Cells Rare /HPF Urine Bacteria Not seen (0-FEW/HPF) /HPF Urine Mucus Rare /LPF - Radiology Interpretation Free Text/Narrative:: 2V CXR: No acute cardiopulmonary abnormality Departure - Departure Time of Disposition: 15:28 Disposition: Home, Self-Care 01 Reason for Transfer *Q: Primary PCI Indicated Condition: Fair Clinical Impression: Shortness of breath, History of CHF (congestive heart failure) Instructions: Shortness of Breath, [id number], Heart Failure, [id number] Referrals: Dino Castellano MD [Primary Care Provider] - Forms: ED Department Discharge Additional Instructions: Follow up with Dr. Castellano in 3-[address] Castellano remove the duoderm
--- NOTE | 2016-12-16 13:47 | CR ---
Clinical history: 86-year-old male with shortness of breath and recent history CHF. Interpretation: Sternotomy wires and mediastinal clips. Ectasia dorsal aorta. Normal cardiac silhouette without cephalization of vascular flow, signs of alveolar edema or dependen t pleural fluid accumulation (effusion). No lung mass, hilar lymphadenopathy or new focal lobar consolidation when compared to 06 December 2016 AP film (CXR with signs of "failure"). CONCLUSION: No acute cardiopulmonary abnormality.
[2016-12-16 14:22] VITALS: BP 149/57
--- NOTE | 2016-12-21 08:07 | EKG ---
12/16/2016 - MARY AMARAL - This 12-lead EKG shows a normal sinus rhythm with a ventricular rate of 60, first-degree AV block, left axis deviation, interventricular conduction defect. No acute ST-T wave changes. [facility] /[id number]
== END 2016-12-16 15:50 | disposition home or self-care (01) ==
LOC: DL.ED 12:55
DX: R06.02 Shortness of breath (principal); I50.9 Heart failure, unspecified; R53.1 Weakness; R53.83 Other fatigue; I44.0 Atrioventricular block, first degree; Z79.01 Long term (current) use of anticoagulants; Z79.899 Other long term (current) drug therapy; I48.91 Unspecified atrial fibrillation; I10 Essential (primary) hypertension; E78.00 Pure hypercholesterolemia, unspecified; Z98.890 Other specified postprocedural states; F41.9 Anxiety disorder, unspecified
CPT/HCPCS: 36415; 71020; 80053; 81001; 83735; 83880; 84443; 84484; 85025; 85610; 93005; 93010; 99284; 99285

== ENCOUNTER 2016-12-26 20:07 | Emergency (ER) | payer MEDICARE ==
--- NOTE | 2016-12-26 20:24 | EDM.PDOC ---
ED HPI GENERAL MEDICAL PROBLEM - General Stated Complaint: CHEST PAIN, HEAVINESS Time Seen by Provider: 12/26/16 20:23 Source of Information: Reports: Patient History Limitations: Reports: No Limitations - History of Present Illness INITIAL COMMENTS - FREE TEXT/NARRATIVE: c/o recurrent right side "coldness" normally goes away with NTG but this time not. denies CP/SOB perse. Right Chest Pain Score (Numeric/FACES): 5 - Related Data Allergies Allergy/AdvReac Type Severity Reaction Status Date / Time hydrochlorothiazide Allergy Fainting Verified 12/26/16 20:29 Home Meds: Home Meds Aspirin/Calcium Carbonate/Mag [Aspirin Buffered 325 mg Tab] 325 mg PO DAILY [History] Oxazepam 15 mg PO ASDIRECTED PRN 12/27/13 [History] Warfarin [Coumadin] 1 - 2 tab PO ASDIRECTED 12/27/13 [History] Nitroglycerin 0.4 mg SL ATDISCHARGE PRN 06/07/14 [History] Triamcinolone Acetonide [Triamcinolone Acetonide 0.1% Oint] 1 applic TOP BID [History] Lisinopril [Prinivil] 10 mg PO DAILY #30 tablet 12/08/16 [Rx] Furosemide [Lasix] 20 mg PO DAILY 12/16/16 [History] Metoprolol Succinate [Toprol XL] 25 mg PO DAILY 12/16/16 [History] Past Medical History HEENT History: Reports: Hard of Hearing Cardiovascular History: Reports: Afib, CAD, High Cholesterol, Hypertension Respiratory History: Reports: None Gastrointestinal History: Reports: None Genitourinary History: Reports: None Musculoskeletal History: Reports: Arthritis Neurological History: Reports: None Psychiatric History: Reports: Anxiety Endocrine/Metabolic History: Reports: None Hematologic History: Reports: None Immunologic History: Reports: None Oncologic (Cancer) History: Reports: None Dermatologic History: Reports: Other (See Below) Other Dermatologic History: sores to top of head - Infectious Disease History Infectious Disease History: Reports: Chicken Pox, Measles, Mumps - Past Surgical History Cardiovascular Surgical History: Reports: Coronary Artery Bypass, Coronary Artery Stent Social & Family History - Family History Family Medical History: Noncontributory - Tobacco Use Smoking Status *Q: Never Smoker Second Hand Smoke Exposure: No - Caffeine Use Caffeine Use: Reports: Coffee Other Caffeine Use: 24 oz daily - Alcohol Use Days Per Week of Alcohol Use: 7 Number of Drinks Per Day: 1 Total Drinks Per Week: 7 - Recreational Drug Use Recreational Drug Use: No - Living Situation & Occupation Living situation: Reports: , with Spouse Occupation: Retired ED ROS GENERAL - Review of Systems Review Of Systems: ROS reveals no pertinent complaints other than HPI. ED EXAM, GENERAL - Physical Exam Exam: See Below Exam Limited By: Altered Mental Status General Appearance: Alert, WD/WN, No Apparent Distress, Anxious Ears: Hearing Grossly Normal Throat/Mouth: Normal Voice, No Airway Compromise Head: Atraumatic Neck: Non-Tender, Full Range of Motion Respiratory/Chest: No Respiratory Distress Cardiovascular: Regular Rate, Rhythm GI/Abdominal: Soft, Non-Tender Neurological: Alert, Oriented, Normal Cognition, Normal Gait, No Motor/Sensory Deficits Psychiatric: Anxious Skin Exam: Warm, Dry, Normal Color Lymphatic: No Adenopathy Course - Vital Signs Last Recorded V/S: Last Vital Signs Temp 36.8 C 12/27/16 06:00 Pulse 58 L 12/26/16 20:10 Resp 20 12/27/16 06:00 BP 113/43 L 12/27/16 06:00 Pulse Ox 97 12/27/16 06:00 - Orders/Labs/Meds Orders: Active Orders 24 hr Category Date Time Status EKG 12 Lead [EKG Documentation Completion] [RC] ROUTINE Care 12/26/16 21:42 Active EKG 12 Lead [EKG Documentation Completion] [RC] STAT Care 12/26/16 20:22 Active Labs: Laboratory Tests 12/26/16 12/26/16 12/27/16 Range/Units 20:26 20:26 00:25 WBC 9.3 (5.0-10.0) 10^3/uL RBC 5.59 (4.6-6.2) 10^6/uL Hgb 14.9 (14.0-18.0) g/dL Hct 43.3 (40.0-54.0) % MCV 77.5 L (80-100) fL MCH 26.7 L (27.0-34.0) pg MCHC 34.4 (33.0-35.0) g/dL Plt Count 235 (150-450) 10^3/uL Neut % (Auto) 62.1 (42.2-75.2) % Lymph % (Auto) 23.0 (20.5-50.1) % [place] % (Auto) 13.7 H (2-8) % Eos % (Auto) 0.8 L (1.0-3.0) % Baso % (Auto) 0.4 (0.0-1.0) % Sodium 128 L (135-145) mmol/L Potassium 4.1 (3.6-5.0) mmol/L Chloride 94 L (101-111) mmol/L Carbon Dioxide 23.0 (21.0-31.0) mmol/L Anion Gap 15.1 BUN 27 H (7-18) mg/dL Creatinine 1.1 (0.6-1.3) mg/dL Est Cr Clr Drug Dosing TNP Estimated GFR (MDRD) > 60 BUN/Creatinine Ratio 24.54 Glucose 131 H (74-105) mg/dL Calcium 9.0 (8.4-10.2) mg/dl Total Bilirubin 0.9 (0.2-1.0) mg/dL AST 24 (10-42) IU/L ALT 13 (10-60) IU/L Alkaline Phosphatase 67 (42-121) IU/L Troponin I 0.03 H* 0.04 H* (0.00-0.02) ng/ml Total Protein 7.2 (6.7-8.2) g/dl Albumin 3.9 (3.2-5.5) g/dl Globulin 3.3 Albumin/Globulin Ratio 1.18 / Range/Units 05:20 WBC (5.0-10.0) 10^3/uL RBC (4.6-6.2) 10^6/uL Hgb (14.0-18.0) g/dL Hct (40.0-54.0) % MCV (80-100) fL MCH (27.0-34.0) pg MCHC (33.0-35.0) g/dL Plt Count (150-450) 10^3/uL Neut % (Auto) (42.2-75.2) % Lymph % (Auto) (20.5-50.1) % [place] % (Auto) (2-8) % Eos % (Auto) (1.0-3.0) % Baso % (Auto) (0.0-1.0) % Sodium (135-145) mmol/L Potassium (3.6-5.0) mmol/L Chloride (101-111) mmol/L Carbon Dioxide (21.0-31.0) mmol/L Anion Gap BUN (7-18) mg/dL Creatinine (0.6-1.3) mg/dL Est Cr Clr Drug Dosing Estimated GFR (MDRD) BUN/Creatinine Ratio Glucose (74-105) mg/dL Calcium (8.4-10.2) mg/dl Total Bilirubin (0.2-1.0) mg/dL AST (10-42) IU/L ALT (10-60) IU/L Alkaline Phosphatase (42-121) IU/L Troponin I 0.04 H* (0.00-0.02) ng/ml Total Protein (6.7-8.2) g/dl Albumin (3.2-5.5) g/dl Globulin Albumin/Globulin Ratio Meds: Medications Discontinued Medications Generic Name Dose Route Start Last Admin Trade Name Jt PRN Reason Stop Dose Admin Lorazepam 0.5 mg 12/27/16 01:58 12/27/16 02:07 Ativan PO 12/27/16 01:59 0.5 mg ONETIME ONE Administration Lorazepam 0.5 mg 12/27/16 03:56 12/27/16 04:00 Ativan PO 12/27/16 03:57 0.5 mg ONETIME ONE Administration - Re-Assessments/Exams Free Text/Narrative Re-Assessment/Exam: 12/27/16 06:17 re-exam; sleeping arousable, without pain or discomfort. prefers to go home. Departure - Departure Time of Disposition: 06:18 Disposition: Home, Self-Care 01 Condition: Good Clinical Impression: Atypical chest pain, Anxiety Instructions: Nonspecific Chest Pain, [id number] Forms: ED Department Discharge Additional Instructions: 1) see family doctor Wednesday for cardiology follow up 2) recheck if there is any change or concern - My Orders Last 24 Hours: My Active Orders 12/26/16 20:22 EKG 12 Lead [EKG Documentation Completion] [RC] STAT 12/26/16 21:42 EKG 12 Lead [EKG Documentation Completion] [RC] ROUTINE - Assessment/Plan Last 24 Hours: My Active Orders 12/26/16 20:22 EKG 12 Lead [EKG Documentation Completion] [RC] STAT 12/26/16 21:42 EKG 12 Lead [EKG Documentation Completion] [RC] ROUTINE
[2016-12-26 20:54] LABS: CHLORIDE,CL 94 mmol/L (101-111); SODIUM,NA 128 mmol/L (135-145)
[2016-12-27] MEDS ORDERED: LORazepam 0.5 MG Tab PO ONE ×2 (01:58→03:56)
[2016-12-27 06:07] VITALS: BP 113/43
--- NOTE | 2016-12-30 10:00 | EKG ---
12/26/2016 - MARY AMARAL C - EKG is sinus rhythm with a rate of 73. There is a first-degree AV block. There are Q-waves on the septal leads. EKG otherwise within normal limits. There are no signs of acute myocardial injury. [facility] /[id number]
== END 2016-12-27 07:16 | disposition home or self-care (01) ==
LOC: DL.ED 20:07
DX: R07.89 Other chest pain (principal); F41.9 Anxiety disorder, unspecified; I25.10 Atherosclerotic heart disease of native coronary artery without angina pectoris; I48.91 Unspecified atrial fibrillation; E78.00 Pure hypercholesterolemia, unspecified; M19.90 Unspecified osteoarthritis, unspecified site; Z95.1 Presence of aortocoronary bypass graft; Z95.5 Presence of coronary angioplasty implant and graft; Z79.82 Long term (current) use of aspirin; Z79.01 Long term (current) use of anticoagulants; Z79.899 Other long term (current) drug therapy; Z88.8 Allergy status to other drugs, medicaments and biological substances
CPT/HCPCS: 36415; 80053; 84484; 85025; 93005; 93010; 99285; A9270; 99284

== ENCOUNTER 2016-12-29 20:28 | Emergency (ER) | payer MEDICARE ==
[2016-12-29 20:38] VITALS: BP 168/52
--- NOTE | 2016-12-29 22:00 | EDM.PDOC ---
ED HPI GENERAL MEDICAL PROBLEM - General Chief Complaint: Chest Pain Stated Complaint: IN BY AMBULANCE Time Seen by Provider: 12/29/16 20:30 Source of Information: Reports: Patient, EMS History Limitations: Reports: No Limitations - History of Present Illness INITIAL COMMENTS - FREE TEXT/NARRATIVE: C/O increased fatique with exertion, worsening over past 3 weeks. Patient has been seen in ED multiple times in past [facility] with simialr complaint. Notes right side of chest gets cold and is warmed up when he takes nitro. Took one today at 3 pm and helped. Took 3 on Wednesday. Describes feeling progressively weaker. October was able to walk long distance , now barely across room without being winded. Reports every thing started after imdur increased, but now on previous dose of 30 and has not improved or gotten back to baseline. Hx aortic stenosis with remote valve replacement and continued "leaky valve". Cardiology appointment scheduled in [place] on Wednesday. Treatments [employer]: Reports: EKG, IV/IO - Related Data Allergies Allergy/AdvReac Type Severity Reaction Status Date / Time hydrochlorothiazide Allergy Fainting Verified 12/29/16 21:50 Home Meds: Home Meds Aspirin/Calcium Carbonate/Mag [Aspirin Buffered 325 mg Tab] 325 mg PO DAILY [History] Oxazepam 15 mg PO ASDIRECTED PRN 12/27/13 [History] Warfarin [Coumadin] 1 - 2 tab PO ASDIRECTED 12/27/13 [History] Nitroglycerin 0.4 mg SL ATDISCHARGE PRN 06/07/14 [History] Triamcinolone Acetonide [Triamcinolone Acetonide 0.1% Oint] 1 applic TOP BID [History] Lisinopril [Prinivil] 10 mg PO DAILY #30 tablet 12/08/16 [Rx] Furosemide [Lasix] 20 mg PO DAILY 12/16/16 [History] Metoprolol Succinate [Toprol XL] 25 mg PO DAILY 12/16/16 [History] Past Medical History HEENT History: Reports: Hard of Hearing Cardiovascular History: Reports: Afib, CAD, High Cholesterol, Hypertension Respiratory History: Reports: None Gastrointestinal History: Reports: None Genitourinary History: Reports: None Musculoskeletal History: Reports: Arthritis Neurological History: Reports: None Psychiatric History: Reports: Anxiety Endocrine/Metabolic History: Reports: None Hematologic History: Reports: None Immunologic History: Reports: None Oncologic (Cancer) History: Reports: None Dermatologic History: Reports: Other (See Below) Other Dermatologic History: sores to top of head - Infectious Disease History Infectious Disease History: Reports: Chicken Pox, Measles, Mumps - Past Surgical History Head Surgeries/Procedures: Reports: None Cardiovascular Surgical History: Reports: Coronary Artery Bypass, Coronary Artery Stent Social & Family History - Family History Family Medical History: Noncontributory - Tobacco Use Smoking Status *Q: Never Smoker Second Hand Smoke Exposure: No - Caffeine Use Caffeine Use: Reports: Coffee Other Caffeine Use: 24 oz daily - Alcohol Use Days Per Week of Alcohol Use: 7 Number of Drinks Per Day: 1 Total Drinks Per Week: 7 - Recreational Drug Use Recreational Drug Use: No - Living Situation & Occupation Living situation: Reports: , with Spouse Occupation: Retired ED ROS GENERAL - Review of Systems Review Of Systems: ROS reveals no pertinent complaints other than HPI. Constitutional: Reports: Malaise, Weakness, Fatigue, Decreased Appetite. Denies : Fever, Chills, Diaphoresis HEENT: Reports: No Symptoms Respiratory: Reports: Shortness of Breath. Denies: Wheezing, Cough Cardiovascular: Reports: Dyspnea on Exertion. Denies: Lightheadedness, Palpitations GI/Abdominal: Reports: No Symptoms : Reports: No Symptoms Musculoskeletal: Reports: No Symptoms Skin: Reports: No Symptoms Neurological: Reports: No Symptoms Psychiatric: Reports: Anxiety (hx) ED EXAM, GENERAL - Physical Exam Exam: See Below Exam Limited By: No Limitations General Appearance: Alert, Anxious Eye Exam: Bilateral Eye: EOMI Ears: Normal External Exam, Other (hearing aids) Nose: Normal Inspection Throat/Mouth: Normal Oropharynx Neck: Normal Inspection Respiratory/Chest: No Respiratory Distress, Decreased Breath Sounds (bases). No : Crackles, Rales, Rhonchi, Wheezing Cardiovascular: Normal Peripheral Pulses, Regular Rate, Rhythm (grade 2-3 murmur ), No Edema. No: JVD GI/Abdominal: Normal Bowel Sounds, Soft, No Distention. No: Tender Back Exam: Normal Inspection, Full Range of Motion Extremities: Normal Inspection, Normal Range of Motion Neurological: Alert, Oriented, Normal Cognition, No Motor/Sensory Deficits Psychiatric: Normal Affect, Anxious Skin Exam: Warm, Dry, Intact, Normal Color Course - Vital Signs Last Recorded V/S: Last Vital Signs Temp 98.7 F 12/29/16 20:33 Pulse 74 12/29/16 20:33 Resp 18 12/29/16 20:33 BP 168/52 H 12/29/16 20:33 Pulse Ox 99 12/29/16 20:33 - Orders/Labs/Meds Orders: Active Orders 24 hr Category Date Time Status EKG Documentation Completion [RC] URGENT Care 12/29/16 20:27 Active Labs: Laboratory Tests 12/29/16 12/29/16 12/29/16 Range/Units 20:40 20:40 20:40 WBC 9.7 (5.0-10.0) 10^3/uL RBC 5.32 (4.6-6.2) 10^6/uL Hgb 14.2 (14.0-18.0) g/dL Hct 41.6 (40.0-54.0) % MCV 78.2 L (80-100) fL MCH 26.7 L (27.0-34.0) pg MCHC 34.1 (33.0-35.0) g/dL Plt Count 237 (150-450) 10^3/uL Neut % (Auto) 63.2 (42.2-75.2) % Lymph % (Auto) 23.7 (20.5-50.1) % [place] % (Auto) 10.9 H (2-8) % Eos % (Auto) 1.7 (1.0-3.0) % Baso % (Auto) 0.5 (0.0-1.0) % PT 22.9 H (9.0-12.0) SEC INR 2.3 H (0.9-1.2) Sodium 131 L (135-145) mmol/L Potassium 4.2 (3.6-5.0) mmol/L Chloride 94 L (101-111) mmol/L Carbon Dioxide 24.0 (21.0-31.0) mmol/L Anion Gap 17.2 BUN 29 H (7-18) mg/dL Creatinine 1.2 (0.6-1.3) mg/dL Est Cr Clr Drug Dosing 43.37 mL/min Estimated GFR (MDRD) 57 BUN/Creatinine Ratio 24.16 Glucose 105 (74-105) mg/dL Calcium 9.0 (8.4-10.2) mg/dl Magnesium 1.8 (1.8-2.5) mg/dL Total Bilirubin 0.9 (0.2-1.0) mg/dL AST 25 (10-42) IU/L ALT 15 (10-60) IU/L Alkaline Phosphatase 66 (42-121) IU/L CK-MB (CK-2) (0.4-4.7) ng/mL Troponin I 0.03 H* (0.00-0.02) ng/ml B-Natriuretic Peptide 590 H (0-100) pg/ml Total Protein 7.2 (6.7-8.2) g/dl Albumin 3.9 (3.2-5.5) g/dl Globulin 3.3 Albumin/Globulin Ratio 1.18 / Range/Units 20:40 WBC (5.0-10.0) 10^3/uL RBC (4.6-6.2) 10^6/uL Hgb (14.0-18.0) g/dL Hct (40.0-54.0) % MCV (80-100) fL MCH (27.0-34.0) pg MCHC (33.0-35.0) g/dL Plt Count (150-450) 10^3/uL Neut % (Auto) (42.2-75.2) % Lymph % (Auto) (20.5-50.1) % [place] % (Auto) (2-8) % Eos % (Auto) (1.0-3.0) % Baso % (Auto) (0.0-1.0) % PT (9.0-12.0) SEC INR (0.9-1.2) Sodium (135-145) mmol/L Potassium (3.6-5.0) mmol/L Chloride (101-111) mmol/L Carbon Dioxide (21.0-31.0) mmol/L Anion Gap BUN (7-18) mg/dL Creatinine (0.6-1.3) mg/dL Est Cr Clr Drug Dosing mL/min Estimated GFR (MDRD) BUN/Creatinine Ratio Glucose (74-105) mg/dL Calcium (8.4-10.2) mg/dl Magnesium (1.8-2.5) mg/dL Total Bilirubin (0.2-1.0) mg/dL AST (10-42) IU/L ALT (10-60) IU/L Alkaline Phosphatase (42-121) IU/L CK-MB (CK-2) 5.30 H (0.4-4.7) ng/mL Troponin I (0.00-0.02) ng/ml B-Natriuretic Peptide (0-100) pg/ml Total Protein (6.7-8.2) g/dl Albumin (3.2-5.5) g/dl Globulin Albumin/Globulin Ratio Meds: Medications Discontinued Medications Generic Name Dose Route Start Last Admin Trade Name Freq PRN Reason Stop Dose Admin Lorazepam 1 mg 12/29/16 22:14 12/29/16 22:15 Ativan IVPUSH 12/29/16 22:15 1 mg ONETIME ONE Administration Lorazepam Confirm 12/29/16 22:15 12/29/16 22:20 Ativan Administered 12/29/16 22:16 Not Given Dose 2 mg .ROUTE .STK-MED ONE - Re-Assessments/Exams Free Text/Narrative Re-Assessment/Exam: TC Dr. Gonzalez, accepting of patient for further evaluation and management, CHF. Transfer via [facility] stable condition. Departure - Departure Time of Disposition: 21:55 Disposition: DC/Tfer to Acute Hospital 02 Reason for Transfer *Q: Other Condition: Undetermined Clinical Impression: Elevated troponin, LUIS (dyspnea on exertion), Shortness of breath, Anxiety Congestive heart failure Qualifiers: Congestive heart failure type: unspecified congestive heart failure type Congestive heart failure chronicity: acute on chronic Qualified Code(s): I50.9 - Heart failure, unspecified Referrals: PCP,Unobtain [Primary Care Provider] - Forms: ED Department Discharge - My Orders Last 24 Hours: My Active Orders 12/29/16 20:27 EKG Documentation Completion [RC] URGENT - Assessment/Plan Last 24 Hours: My Active Orders 12/29/16 20:27 EKG Documentation Completion [RC] URGENT
[2016-12-29] MEDS ORDERED: LORazepam 2 MG/ML Syringe IVPUSH ONE (22:14)
[2016-12-29] MEDS ORDERED: LORazepam 2 MG/ML Syringe ONE (22:15)
--- NOTE | 2016-12-31 09:13 | EKG ---
12/29/2016- MARY AMARAL I reviewed the EKG and agree with the machine's reading. [facility] /[id number]
== END 2016-12-29 22:15 ==
LOC: DL.ED 20:28
DX: I11.9 Hypertensive heart disease without heart failure (principal); I50.9 Heart failure, unspecified; R79.89 Other specified abnormal findings of blood chemistry; I48.91 Unspecified atrial fibrillation; E78.00 Pure hypercholesterolemia, unspecified; F41.9 Anxiety disorder, unspecified; M19.90 Unspecified osteoarthritis, unspecified site; Z88.8 Allergy status to other drugs, medicaments and biological substances; Z79.899 Other long term (current) drug therapy; Z79.01 Long term (current) use of anticoagulants
CPT/HCPCS: 36415; 71010; 80053; 82553; 83735; 83880; 84484; 85025; 85610; 93005; 93010; 99285; J2060; 99284

== ENCOUNTER 2017-03-09 23:17 | Emergency (ER) | payer MEDICARE ==
[2017-03-09 23:28] VITALS: BP 183/59
--- NOTE | 2017-03-10 00:54 | EDM.PDOC ---
ED HPI GENERAL MEDICAL PROBLEM - General Chief Complaint: Laceration Stated Complaint: HEAD KEEPS BLEEDING Time Seen by Provider: 03/09/17 23:35 Source of Information: Reports: Patient, Family History Limitations: Reports: No Limitations - History of Present Illness INITIAL COMMENTS - FREE TEXT/NARRATIVE: ED ambulatory with c/o head wont stop bleeding Reports falling yesterday then while getting up, scraped head against headboard of bed. No loss of consciousness. Was seen at clinic today and evaluated and InR done which was WNL. patient reports holding pressure to area past 3 hours. Onset: Today Location: Reports: Head (left parietal) Head Pain Score (Numeric/FACES): 7 - Related Data Allergies Allergy/AdvReac Type Severity Reaction Status Date / Time hydrochlorothiazide Allergy Fainting Verified 03/09/17 23:48 Home Meds: Home Meds Aspirin/Calcium Carbonate/Mag [Aspirin Buffered 325 mg Tab] 325 mg PO DAILY [History] Oxazepam 15 mg PO ASDIRECTED PRN 12/27/13 [History] Warfarin [Coumadin] 1 - 2 tab PO ASDIRECTED 12/27/13 [History] Nitroglycerin 0.4 mg SL ATDISCHARGE PRN 06/07/14 [History] Triamcinolone Acetonide [Triamcinolone Acetonide 0.1% Oint] 1 applic TOP BID [History] Lisinopril [Prinivil] 10 mg PO DAILY #30 tablet 12/08/16 [Rx] Furosemide [Lasix] 20 mg PO DAILY 12/16/16 [History] Metoprolol Succinate [Toprol XL] 25 mg PO DAILY 12/16/16 [History] Past Medical History HEENT History: Reports: Hard of Hearing Cardiovascular History: Reports: Afib, CAD, High Cholesterol, Hypertension Respiratory History: Reports: None Gastrointestinal History: Reports: None Genitourinary History: Reports: None Musculoskeletal History: Reports: Arthritis Neurological History: Reports: None Psychiatric History: Reports: Anxiety Endocrine/Metabolic History: Reports: None Hematologic History: Reports: None Immunologic History: Reports: None Oncologic (Cancer) History: Reports: None Dermatologic History: Reports: Other (See Below) Other Dermatologic History: sores to top of head - Infectious Disease History Infectious Disease History: Reports: Chicken Pox, Measles, Mumps - Past Surgical History Head Surgeries/Procedures: Reports: None Cardiovascular Surgical History: Reports: Coronary Artery Bypass, Coronary Artery Stent Social & Family History - Family History Family Medical History: Noncontributory - Tobacco Use Smoking Status *Q: Never Smoker Second Hand Smoke Exposure: No - Caffeine Use Caffeine Use: Reports: Coffee Other Caffeine Use: 24 oz daily - Alcohol Use Days Per Week of Alcohol Use: 7 Number of Drinks Per Day: 1 Total Drinks Per Week: 7 - Recreational Drug Use Recreational Drug Use: No - Living Situation & Occupation Living situation: Reports: , with Spouse Occupation: Retired ED ROS GENERAL - Review of Systems Review Of Systems: See Below Constitutional: Reports: No Symptoms HEENT: Reports: No Symptoms Respiratory: Reports: No Symptoms Cardiovascular: Reports: No Symptoms GI/Abdominal: Reports: No Symptoms Musculoskeletal: Reports: Other (gradual general weakness) Skin: Reports: Wound ED EXAM, SKIN/RASH Exam: See Below Exam Limited By: No Limitations General Appearance: Alert, No Apparent Distress Eye Exam: Bilateral Eye: EOMI, PERRL (4) Ears: Normal External Exam Nose: Normal Inspection Throat/Mouth: Normal Inspection, Normal Lips, Normal Voice Head: Normocephalic, Other (deep abrasion quarter size upper left parietal, mild active bleeding. ) Neck: Normal Inspection, Non-Tender, Full Range of Motion. No: Tender Lateral, Tender Midline Respiratory/Chest: No Respiratory Distress, Lungs Clear, Normal Breath Sounds Cardiovascular: Normal Peripheral Pulses, No Edema GI/Abdominal: Soft Extremities: Normal Inspection, Normal Range of Motion Neurological: Alert, Oriented, Normal Cognition, Normal Gait, No Motor/Sensory Deficits Psychiatric: Anxious Skin: Warm, Wound/Incision (quarter size deep abrasion to mid parietal scant active bleeding to lower arc. ) Location, Skin: Head Associated features: Tenderness. No: Warmth Course - Vital Signs Last Recorded V/S: Last Vital Signs Temp 98.7 F 03/09/17 23:27 Pulse 65 03/09/17 23:27 Resp 20 03/09/17 23:27 BP 183/59 H 03/09/17 23:27 Pulse Ox 100 03/09/17 23:27 - Re-Assessments/Exams Free Text/Narrative Re-Assessment/Exam: Bleeding controlled with pressure dressing. Recommend f/u in clinic in am. Departure - Departure Time of Disposition: 00:52 Disposition: Home, Self-Care 01 Condition: Good Clinical Impression: Abrasion - Discharge Information Instructions: Puncture Wound, [id number] Referrals: PCP,Unobtain [Primary Care Provider] - Forms: ED Department Discharge Additional Instructions: Follow up in clinic pressure to area if bleeding, if not stopped follow up in ED or clinic sleep elevated on pillows
== END 2017-03-10 01:03 | disposition home or self-care (01) ==
LOC: DL.ED 23:17
DX: S00.01XA Abrasion of scalp, initial encounter (principal); I10 Essential (primary) hypertension; E78.00 Pure hypercholesterolemia, unspecified; Z79.01 Long term (current) use of anticoagulants; Z79.82 Long term (current) use of aspirin; Z88.8 Allergy status to other drugs, medicaments and biological substances; W18.09XA Striking against other object with subsequent fall, initial encounter
CPT/HCPCS: 99282

== ENCOUNTER 2017-05-26 17:15 | Inpatient (IN) | payer MEDICARE ==
[2017-05-26 18:54] LABS: ANION GAP 14.1
--- NOTE | 2017-05-26 19:17 | EDM.PDOC ---
ED HPI GENERAL MEDICAL PROBLEM - General Chief Complaint: General Stated Complaint: UNABLE TO WALK,CAME BY AMBULANCE Time Seen by Provider: 05/26/17 19:09 Source of Information: Reports: Patient, Family History Limitations: Reports: No Limitations - History of Present Illness INITIAL COMMENTS - FREE TEXT/NARRATIVE: C/O weakness and cant walk or stand today, reports yesterday walked 1/2 mile. Recent cardiac valve replacement April 14. Denied chest pain or SOB. No fever or chills. Indwelling santos for urinary retention. Family reporting difficulty caring for him at home. Right Knee Pain Score (Numeric/FACES): 6 - Related Data Allergies Allergy/AdvReac Type Severity Reaction Status Date / Time hydrochlorothiazide Allergy Fainting Verified 05/26/17 23:34 Home Meds: Home Meds Oxazepam 15 mg PO TID PRN 12/27/13 [History] Warfarin [Coumadin] 1 - 2 tab PO ASDIRECTED 12/27/13 [History] Nitroglycerin 0.4 mg SL ASDIRECTED PRN 06/07/14 [History] Furosemide [Lasix] 40 mg PO DAILY 12/16/16 [History] Metoprolol Succinate [Toprol XL] 100 mg PO DAILY 12/16/16 [History] Acetaminophen 500 mg PO DAILY 05/26/17 [History] Clopidogrel [Plavix] 75 mg PO DAILY 05/26/17 [History] Cyanocobalamin (Vitamin B-12) [Vitamin B-12] 500 mcg PO DAILY 05/26/17 [History] Finasteride 5 mg PO DAILY 05/26/17 [History] Lisinopril 20 mg PO DAILY 05/26/17 [History] Pantoprazole 20 mg PO PCLUNCH 05/26/17 [History] atorvaSTATin [Lipitor] 20 mg PO BEDTIME 05/26/17 [History] hydrOXYzine HCl [Atarax] 25 mg PO Q8H PRN 05/26/17 [History] Past Medical History HEENT History: Reports: Hard of Hearing, Impaired Vision Cardiovascular History: Reports: Afib, CAD, High Cholesterol, Hypertension Respiratory History: Reports: None Gastrointestinal History: Reports: None, GERD Genitourinary History: Reports: Other (See Below) Other Genitourinary History: urinary retention, Pt has indwelling catheter for the last 2 months, Musculoskeletal History: Reports: Arthritis, Gout Neurological History: Reports: None Psychiatric History: Reports: Anxiety Endocrine/Metabolic History: Reports: None Hematologic History: Reports: None Immunologic History: Reports: None Oncologic (Cancer) History: Reports: None Dermatologic History: Reports: Other (See Below) Other Dermatologic History: sores to top of head - Infectious Disease History Infectious Disease History: Reports: Chicken Pox, Measles, Mumps - Past Surgical History Head Surgeries/Procedures: Reports: None Cardiovascular Surgical History: Reports: Coronary Artery Bypass, Coronary Artery Stent, Valve Replacement Social & Family History - Family History Family Medical History: Noncontributory - Tobacco Use Smoking Status *Q: Never Smoker Second Hand Smoke Exposure: No - Caffeine Use Caffeine Use: Reports: Coffee, Soda, Tea Other Caffeine Use: 24 oz daily - Alcohol Use Days Per Week of Alcohol Use: 7 Number of Drinks Per Day: 1 Total Drinks Per Week: 7 - Recreational Drug Use Recreational Drug Use: No - Living Situation & Occupation Living situation: Reports: , with Spouse Occupation: Retired ED ROS GENERAL - Review of Systems Review Of Systems: See Below Constitutional: Reports: Chills, Weakness (general) HEENT: Reports: No Symptoms Respiratory: Reports: No Symptoms Cardiovascular: Reports: No Symptoms GI/Abdominal: Reports: No Symptoms : Reports: Urinary Retention (indwelling santos catheter) Musculoskeletal: Reports: Leg Pain (right, hx of gout) Skin: Reports: No Symptoms Neurological: Reports: Weakness (bilateral loer extremities) ED EXAM, GENERAL - Physical Exam Exam: See Below Exam Limited By: No Limitations General Appearance: Alert, No Apparent Distress, Anxious Eye Exam: Bilateral Eye: EOMI, PERRL Ears: Normal External Exam, Normal TMs Nose: Normal Inspection Throat/Mouth: Normal Inspection Head: Atraumatic, Normocephalic Neck: Normal Inspection Respiratory/Chest: No Respiratory Distress, Lungs Clear, Normal Breath Sounds Cardiovascular: Normal Peripheral Pulses, Regular Rate, Rhythm GI/Abdominal: Normal Bowel Sounds, Soft (Male) Exam: Other (indwelling santos, cloudy yellow urine) Back Exam: No: Paraspinal Tenderness Extremities: Leg Pain (right trace edema, painful movment) Neurological: Alert, Oriented, Normal Cognition Psychiatric: Anxious Skin Exam: Warm, Dry, Intact, Normal Color Course - Vital Signs Last Recorded V/S: Last Vital Signs Temp 98.7 F 05/26/17 22:15 Pulse 62 05/26/17 22:15 Resp 14 05/26/17 22:15 BP 130/55 L 05/26/17 22:15 Pulse Ox 99 05/26/17 22:15 - Orders/Labs/Meds Orders: Active Orders 24 hr Category Date Time Status CULTURE BLOOD [BC] Stat Lab 05/26/17 18:20 Received CULTURE BLOOD [BC] Stat Lab 05/26/17 18:28 Received CULTURE URINE [RM] Stat Lab 05/26/17 18:00 Received INR,PT,PROTHROMBIN TIME [COAG] Routine Lab 05/27/17 05:11 Ordered Clopidogrel [Plavix] Med 05/27/17 09:00 Active 75 mg PO DAILY Cyanocobalamin (Vitamin B12) [Vitamin B12] Med 05/27/17 09:00 Active 500 mcg PO DAILY Finasteride [Proscar] Med 05/26/17 22:15 Active 5 mg PO BEDTIME Furosemide [Lasix] Med 05/28/17 09:00 Pending 40 mg PO DAILY Isosorbide Mononitrate [Imdur] Med 05/27/17 06:00 Active 30 mg PO ACBREAKFAST Levofloxacin/Dextrose 5%-Water [Levaquin in D5W 250 MG/ Med 05/27/17 21:00 Active 50 ML] 250 mg Premix Bag 1 bag IV Q24H Lisinopril [Prinivil] Med 05/27/17 09:00 Pending 20 mg PO DAILY Metoprolol Succinate [Toprol XL] Med 05/27/17 09:00 Pending 100 mg PO DAILY Nitroglycerin [Nitrostat] Med 05/26/17 22:02 Active 0.4 mg SL ASDIRECTED PRN Oxazepam [Oxazepam] Med 05/26/17 22:02 Pending 15 mg PO ASDIRECTED PRN Pantoprazole [ProTONIX] Med 05/27/17 06:00 Active 40 mg PO ACBREAKFAST Warfarin [Coumadin] Med 05/26/17 22:15 Pending 5 mg PO DAILY atorvaSTATin [Lipitor] Med 05/26/17 22:15 Active 20 mg PO BEDTIME hydrOXYzine HCl [Atarax] Med 05/26/17 22:13 Active 10 mg PO TID PRN Blood Culture x2 Reflex Set [OM.PC] Stat Oth 05/26/17 18:01 Ordered Medication Orders Acetaminophen (Tylenol) 650 mg PO Q4H PRN PRN Reason: Pain (Mild 1-3)/fever Atorvastatin Calcium (Lipitor) 20 mg PO BEDTIME [facility] Last Admin: 05/26/17 23:22 Dose: 20 mg Clopidogrel Bisulfate (Plavix) 75 mg PO DAILY [facility] Cyanocobalamin (Vitamin B12) 500 mcg PO DAILY [facility] Docusate Sodium (Colace) 100 mg PO BID PRN PRN Reason: Constipation Finasteride (Proscar) 5 mg PO BEDTIME [facility] Last Admin: 05/26/17 23:22 Dose: 5 mg Furosemide (Lasix) 40 mg PO DAILY [facility] Hydroxyzine HCl (Atarax) 10 mg PO TID PRN PRN Reason: anxiety, itching Last Admin: 05/26/17 23:22 Dose: 10 mg Levofloxacin/Dextrose 250 mg/ (Premix) 50 mls @ 50 mls/hr IV Q24H [facility] Sodium Chloride (Normal Saline) 1,000 mls @ 125 mls/hr IV ASDIRECTED [facility] Stop: 05/28/17 06:14 Last Admin: 05/26/17 23:20 Dose: 125 mls/hr Isosorbide Mononitrate (Imdur) 30 mg PO ACBREAKFAST [facility] Lisinopril (Prinivil) 20 mg PO DAILY [facility] Metoprolol Succinate (Toprol Xl) 100 mg PO DAILY [facility] Nitroglycerin (Nitrostat) 0.4 mg SL ASDIRECTED PRN PRN Reason: Chest Pain Non-Formulary Medication (Oxazepam [Oxazepam]) 15 mg PO ASDIRECTED PRN PRN Reason: Anxiety Ondansetron HCl (Zofran) 4 mg IVPUSH Q6H PRN PRN Reason: Nausea/Vomiting Pantoprazole Sodium (Protonix) 40 mg PO ACBREAKFAST [facility] Polyethylene Glycol (Miralax) 17 gm PO DAILY PRN PRN Reason: Constipation Warfarin Sodium (Coumadin) 5 mg PO DAILY [facility] Labs: Laboratory Tests 05/26/17 05/26/17 05/26/17 Range/Units 17:59 18:20 18:20 WBC 12.4 H (5.0-10.0) 10^3/uL RBC 3.94 L (4.6-6.2) 10^6/uL Hgb 10.2 L D (14.0-18.0) g/dL Hct 31.1 L (40.0-54.0) % MCV 78.9 L (80-100) fL MCH 25.9 L (27.0-34.0) pg MCHC 32.8 L (33.0-35.0) g/dL Plt Count 262 (150-450) 10^3/uL Neut % (Auto) 70.7 (42.2-75.2) % Lymph % (Auto) 12.7 L (20.5-50.1) % [place] % (Auto) 15.1 H (2-8) % Eos % (Auto) 1.3 (1.0-3.0) % Baso % (Auto) 0.2 (0.0-1.0) % PT (9.0-12.0) SEC INR (0.9-1.2) Sodium 132 L (135-145) mmol/L Potassium 4.1 (3.6-5.0) mmol/L Chloride 98 L (101-111) mmol/L Carbon Dioxide 24.0 (21.0-31.0) mmol/L Anion Gap 14.1 BUN 38 H (7-18) mg/dL Creatinine 1.4 H (0.6-1.3) mg/dL Est Cr Clr Drug Dosing 36.47 mL/min Estimated GFR (MDRD) 48 BUN/Creatinine Ratio 27.14 Glucose 114 H (74-105) mg/dL Lactic Acid (0.5-2.2) mmol/L Uric Acid (2.6-7.2) mg/dL Calcium 8.4 (8.4-10.2) mg/dl Total Bilirubin 0.9 (0.2-1.0) mg/dL AST 20 (10-42) IU/L ALT 12 (10-60) IU/L Alkaline Phosphatase 61 (42-121) IU/L Troponin I (0.00-0.02) ng/ml B-Natriuretic Peptide (0-100) pg/ml Total Protein 6.7 (6.7-8.2) g/dl Albumin 3.0 L (3.2-5.5) g/dl Globulin 3.7 Albumin/Globulin Ratio 0.81 Urine Color Yellow (YELLOW) Urine Appearance Turbid (CLEAR) Urine pH 5.0 (5.0-9.0) Ur Specific [place]um 1.010 (1.005-1.030) Urine Protein 30 H (NEGATIVE) Urine Glucose (UA) Negative (NEGATIVE) Urine Ketones Negative (NEGATIVE) Urine Occult Blood Moderate H (NEGATIVE) Urine Nitrite Positive H (NEGATIVE) Urine Bilirubin Negative (NEGATIVE) Urine Urobilinogen 1.0 (0.2-1.0) mg/dL Ur Leukocyte Esterase Large H (NEGATIVE) Urine RBC 50-75 H /HPF Urine WBC >100 H (0-5/HPF) /HPF Ur Epithelial Cells Rare /HPF Urine Bacteria Many H (0-FEW/HPF) /HPF 05/26/17 05/26/17 05/26/17 Range/Units 18:20 18:20 18:20 WBC (5.0-10.0) 10^3/uL RBC (4.6-6.2) 10^6/uL Hgb (14.0-18.0) g/dL Hct (40.0-54.0) % MCV (80-100) fL MCH (27.0-34.0) pg MCHC (33.0-35.0) g/dL Plt Count (150-450) 10^3/uL Neut % (Auto) (42.2-75.2) % Lymph % (Auto) (20.5-50.1) % [place] % (Auto) (2-8) % Eos % (Auto) (1.0-3.0) % Baso % (Auto) (0.0-1.0) % PT 17.7 H (9.0-12.0) SEC INR 1.8 H (0.9-1.2) Sodium (135-145) mmol/L Potassium (3.6-5.0) mmol/L Chloride (101-111) mmol/L Carbon Dioxide (21.0-31.0) mmol/L Anion Gap BUN (7-18) mg/dL Creatinine (0.6-1.3) mg/dL Est Cr Clr Drug Dosing mL/min Estimated GFR (MDRD) BUN/Creatinine Ratio Glucose (74-105) mg/dL Lactic Acid 1.0 (0.5-2.2) mmol/L Uric Acid 7.5 H (2.6-7.2) mg/dL Calcium (8.4-10.2) mg/dl Total Bilirubin (0.2-1.0) mg/dL AST (10-42) IU/L ALT (10-60) IU/L Alkaline Phosphatase (42-121) IU/L Troponin I 0.04 H* (0.00-0.02) ng/ml B-Natriuretic Peptide 386 H (0-100) pg/ml Total Protein (6.7-8.2) g/dl Albumin (3.2-5.5) g/dl Globulin Albumin/Globulin Ratio Urine Color (YELLOW) Urine Appearance (CLEAR) Urine pH (5.0-9.0) Ur Specific [place]um (1.005-1.030) Urine Protein (NEGATIVE) Urine Glucose (UA) (NEGATIVE) Urine Ketones (NEGATIVE) Urine Occult Blood (NEGATIVE) Urine Nitrite (NEGATIVE) Urine Bilirubin (NEGATIVE) Urine Urobilinogen (0.2-1.0) mg/dL Ur Leukocyte Esterase (NEGATIVE) Urine RBC /HPF Urine WBC (0-5/HPF) /HPF Ur Epithelial Cells /HPF Urine Bacteria (0-FEW/HPF) /HPF Meds: Medications Generic Name Dose Route Start Last Admin Trade Name Freq PRN Reason Stop Dose Admin Acetaminophen 650 mg 05/26/17 22:15 Tylenol PO Q4H PRN Pain (Mild 1-3)/fever Atorvastatin Calcium 20 mg 05/26/17 22:15 05/26/17 23:22 Lipitor PO 20 mg BEDTIME [facility]AN Administration Clopidogrel Bisulfate 75 mg 05/27/17 09:00 Plavix PO DAILY [facility] Cyanocobalamin 500 mcg 05/27/17 09:00 Vitamin B12 PO DAILY [facility] Docusate Sodium 100 mg 05/26/17 22:15 Colace PO BID PRN Constipation Finasteride 5 mg 05/26/17 22:15 05/26/17 23:22 Proscar PO 5 mg BEDTIME [facility]AN Administration Furosemide 40 mg 05/28/17 09:00 Lasix PO DAILY [facility] Hydroxyzine HCl 10 mg 05/26/17 22:13 05/26/17 23:22 Atarax PO 10 mg TID PRN Administration anxiety, itching Levofloxacin/Dextrose 250 mg/ 50 mls @ 50 mls/hr 05/27/17 21:00 Premix IV Q24H [facility] Sodium Chloride 1,000 mls @ 125 mls/hr 05/26/17 22:15 05/26/17 23:20 Normal Saline IV 05/28/17 06:14 125 mls/hr ASDIRECTED LOGAN Administration Isosorbide Mononitrate 30 mg 05/27/17 06:00 Imdur PO ACBREAKFAST [facility] Lisinopril 20 mg 05/27/17 09:00 Prinivil PO DAILY [facility] Metoprolol Succinate 100 mg 05/27/17 09:00 Toprol Xl PO DAILY [facility] Nitroglycerin 0.4 mg 05/26/17 22:02 Nitrostat SL ASDIRECTED PRN Chest Pain Non-Formulary Medication 15 mg 05/26/17 22:02 Oxazepam [Oxazepam] PO ASDIRECTED PRN Anxiety Ondansetron HCl 4 mg 05/26/17 22:15 Zofran IVPUSH Q6H PRN Nausea/Vomiting Pantoprazole Sodium 40 mg 05/27/17 06:00 Protonix PO ACBREAKFAST [facility] Polyethylene Glycol 17 gm 05/26/17 22:15 Miralax PO DAILY PRN Constipation Warfarin Sodium 5 mg 05/26/17 22:15 Coumadin PO DAILY [facility] Discontinued Medications Generic Name Dose Route Start Last Admin Trade Name Freq PRN Reason Stop Dose Admin Acetaminophen 650 mg 05/26/17 19:43 05/26/17 19:53 Tylenol PO 05/26/17 19:44 650 mg NOW ONE Administration Levofloxacin/Dextrose 500 mg/ 100 mls @ 100 mls/hr 05/26/17 21:17 05/26/17 21 :35 Premix IV 05/26/17 22:16 100 mls/hr ONETIME ONE Administration - Radiology Interpretation Free Text/Narrative:: Head CT no acute disease CXR: left lobe pneumonia Departure - Departure Time of Disposition: 21:35 Disposition: Admitted As Inpatient 65 Condition: Fair Clinical Impression: Weakness Pneumonia involving left lung Qualifiers: Pneumonia type: due to unspecified organism Lung location: unspecified part of lung Qualified Code(s): J18.9 - Pneumonia, unspecified organism - Discharge Information
[2017-05-26] MEDS ORDERED: Acetaminophen 325 MG Tab PO ONE (19:43)
[2017-05-26] MEDS ORDERED: Levofloxacin/Dextrose 5%-Water 500 MG in Premix Bag 1 BAG IV ONE (21:17)
[2017-05-26] MEDS ORDERED: Nitroglycerin 0.4 MG Tab.SL SL PRN (22:02)
[2017-05-26] MEDS ORDERED: Ondansetron 4 MG/2 ML SDV IVPUSH PRN (22:15)
[2017-05-26] MEDS ORDERED: Polyethylene Glycol 3350 Powder 17 GM Packet PO PRN (22:15)
[2017-05-26] MEDS ORDERED: Warfarin 5 MG Tab PO SCH (22:15)
[2017-05-26] MEDS ORDERED: Docusate Sodium 100 MG Cap PO PRN (22:15)
--- NOTE | 2017-05-26 22:34 | PCM.HP ---
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 Patient stated that the weakness started fast 2 days ago and before that he was able to walk at least 1000 feet but for the last 2 days he needed help of his friend to go to the bathroom as he felt wobbly and his legs are not able to hold him up. He said he has not been drinking good amount of fluids. Patient denies any other symptoms. He denies headache, change in vision, fever, chills, nausea, vomiting, chest pain, shortness breath, cough, abdominal pain, blood in the stool, black stool, diarrhea, change in his urine habits, unilateral weakness/numbness/tingling, fall, new rash, no joint pain or swelling, any other symptoms or concerns. Patient stated that his gout was acting up in his right stump about 10 days ago but gets better. In the emergency room laboratory workup reported WBC 12.4 without left shift. Hemoglobin 10.2. Platelets 262. INR 1.8. Sodium 132. BUN 38. Creatinine 1.4 ( higher than his baseline which is 1.2). Blood glucose 114. Uric acid 7.5. Lactic acid 1.0. Troponin 0.04 (patient has history of troponin between 0.03 and 0.04). BNP 386 (lower than his baseline). Albumin 3.0. Urinalysis was reported urine occult blood: Moderate. Urine nitrate: Positive. Urine leukocyte esterase: Large. Urine RBC: 50-75. Urine WBC: > 100. Urine bacteria many. Chest x-ray reported "Hazy density obscures the left heart border. The left lung was clear on prior x-ray. Left lingular pneumonia suspected" EKG showed sinus rhythm with first degree AV block and no acute ST changes. Patient received 1 dose of Levaquin IV in the emergency room and sent to the floor for admission Right Knee Pain Score (Numeric/FACES): 6 - Related Data Allergies/Adverse Reactions: Allergies Allergy/AdvReac Type Severity Reaction Status Date / Time hydrochlorothiazide Allergy Fainting Verified 03/09/17 23:48 Home Medications: Home Meds Aspirin/Calcium Carbonate/Mag [Aspirin Buffered 325 mg Tab] 325 mg PO DAILY [History] Oxazepam 15 mg PO ASDIRECTED PRN 12/27/13 [History] Warfarin [Coumadin] 1 - 2 tab PO ASDIRECTED 12/27/13 [History] Nitroglycerin 0.4 mg SL ATDISCHARGE PRN 06/07/14 [History] Triamcinolone Acetonide [Triamcinolone Acetonide 0.1% Oint] 1 applic TOP BID [History] Lisinopril [Prinivil] 10 mg PO DAILY #30 tablet 12/08/16 [Rx] Furosemide [Lasix] 20 mg PO DAILY 12/16/16 [History] Metoprolol Succinate [Toprol XL] 25 mg PO DAILY 12/16/16 [History] Past Medical History HEENT History: Reports: Hard of Hearing, Impaired Vision Cardiovascular History: Reports: Afib, CAD, High Cholesterol, Hypertension Respiratory History: Reports: None Gastrointestinal History: Reports: None, GERD Genitourinary History: Reports: Other (See Below) Other Genitourinary History: urinary retention, Pt has indwelling catheter for the last 2 months, Musculoskeletal History: Reports: Arthritis, Gout Neurological History: Reports: None Psychiatric History: Reports: Anxiety Endocrine/Metabolic History: Reports: None Hematologic History: Reports: None Immunologic History: Reports: None Oncologic (Cancer) History: Reports: None Dermatologic History: Reports: Other (See Below) Other Dermatologic History: sores to top of head - Infectious Disease History Infectious Disease History: Reports: Chicken Pox, Measles, Mumps - Past Surgical History Head Surgeries/Procedures: Reports: None Cardiovascular Surgical History: Reports: Coronary Artery Bypass, Coronary Artery Stent, Valve Replacement Social & Family History - Family History Family Medical History: Noncontributory - Tobacco Use Smoking Status *Q: Never Smoker Second Hand Smoke Exposure: No - Caffeine Use Caffeine Use: Reports: Coffee, Soda, Tea Other Caffeine Use: 24 oz daily - Alcohol Use Days Per Week of Alcohol Use: 7 Number of Drinks Per Day: 1 Total Drinks Per Week: 7 - Recreational Drug Use Recreational Drug Use: No - Living Situation & Occupation Living situation: Reports: , with Spouse Occupation: Retired H&P Review of Systems - Review of Systems: Review Of Systems: ROS reveals no pertinent complaints other than HPI. Exam - Exam Exam: See Below - Vital Signs Vital Signs: Last Vital Signs Temp 37.6 C 05/26/17 17:42 Pulse 68 05/26/17 17:42 Resp BP 123/65 05/26/17 17:42 Pulse Ox 99 05/26/17 17:42 Weight: 77.111 kg - Exam General: Alert, Oriented, Cooperative, Other (Patient looks chronically ill, fatigued, weak and frail). No: Moderate Distress, Severe Distress, Sedated, Lethargic, Obtunded HEENT: Conjunctiva Clear, EACs Clear, EOMI, Mucosa Moist & [place], Nares Patent, Normal Nasal Septum, Posterior Pharynx Clear, Pupils Equal, Pupils Reactive, Other (He is hard hearing. Lips are dry) Neck: Supple, Trachea Midline, +2 Carotid Pulse wo Bruit Lungs: Clear to Auscultation, Normal Respiratory Effort Cardiovascular: Regular Rate, Regular Rhythm, Normal S1, Normal S2 GI/Abdominal Exam: Normal Bowel Sounds, Soft, Non-Tender, No Organomegaly, No Distention, No Abnormal Bruit, No Mass (Male) Exam: Deferred Rectal (Males) Exam: Deferred Back Exam: Normal Inspection, Full Range of Motion. No: CVA Tenderness (L), CVA Tenderness (R) Extremities: Normal Inspection, Normal Range of Motion, Non-Tender, No Pedal Edema, Normal Capillary Refill Skin: Warm, Dry, Intact, Other (Patient inguinal incisions are healed appropriately) Neurological: Cranial Nerves Intact, Normal Speech, Other (His voice tone was low). No: Focal Deficit Neuro Extensive - Mental Status: Alert, Oriented x3, Normal Mood/Affect Psychiatric: Alert, Normal Affect, Normal Mood - Patient Data Result Diagrams: 05/26/17 18:20 05/26/17 18:20 *Q Meaningful Use (ADM) - VTE *Q VTE Criteria *Q: - Stroke *Q Stroke Criteria *Q: - AMI *Q AMI Criteria *Q: - Problem List (1) Pneumonia SNOMED Code(s): 693709986 ICD Code: J18.9 - PNEUMONIA, UNSPECIFIED ORGANISM Status: Acute Priority : High Current Visit: Yes (2) Essential hypertension SNOMED Code(s): 26959982 ICD Code: I10 - ESSENTIAL (PRIMARY) HYPERTENSION Status: Chronic Current Visit: Yes (3) Acute kidney injury superimposed on chronic kidney disease SNOMED Code(s): 41638610 ICD Code: N17.9 - ACUTE KIDNEY FAILURE, UNSPECIFIED; N18.9 - CHRONIC KIDNEY DISEASE, UNSPECIFIED Status: Acute Current Visit: Yes (4) Urinary tract infection SNOMED Code(s): 38532376 ICD Code: N39.0 - URINARY TRACT INFECTION, SITE NOT SPECIFIED Status: Acute Current Visit: Yes (5) Anxiety SNOMED Code(s): 42055560 ICD Code: F41.9 - ANXIETY DISORDER, UNSPECIFIED Status: Chronic Current Visit: No (6) Congestive heart failure SNOMED Code(s): 08535669 ICD Code: I50.9 - HEART FAILURE, UNSPECIFIED Status: Chronic Current Visit: No Qualifiers: Qualified Code(s): I50.9 - Heart failure, unspecified (7) Elevated troponin SNOMED Code(s): 143714661, 713048089 ICD Code: R74.8 - ABNORMAL LEVELS OF OTHER SERUM ENZYMES Status: Chronic Current Visit: No (8) Hyponatremia syndrome SNOMED Code(s): 0680103 ICD Code: E87.1 - HYPO-OSMOLALITY AND HYPONATREMIA Status: Chronic Current Visit: No Problem List Initiated/Reviewed/Updated: Yes Orders Last 24hrs: Active Orders 24 hr Category Date Time Status INR,PT,PROTHROMBIN TIME [COAG] Routine Lab 05/27/17 05:11 Ordered Clopidogrel [Plavix] Med 05/27/17 09:00 Ordered 75 mg PO DAILY Cyanocobalamin (Vitamin B12) [Vitamin B12] Med 05/27/17 09:00 Ordered 500 mcg PO DAILY Finasteride [Proscar] Med 05/26/17 22:15 Ordered 5 mg PO BEDTIME Furosemide [Lasix] Med 05/28/17 09:00 Ordered 40 mg PO DAILY Isosorbide Mononitrate [Imdur] Med 05/27/17 06:00 Ordered 30 mg PO ACBREAKFAST Lisinopril [Prinivil] Med 05/27/17 09:00 Ordered 20 mg PO DAILY Metoprolol Succinate [Toprol XL] Med 05/27/17 09:00 Ordered 100 mg PO DAILY Nitroglycerin [Nitrostat] Med 05/26/17 22:02 Ordered 0.4 mg SL ATDISCHARGE PRN Oxazepam [Oxazepam] Med 05/26/17 22:02 Ordered 15 mg PO ASDIRECTED PRN Pantoprazole [ProTONIX] Med 05/27/17 06:00 Ordered 20 mg PO ACBREAKFAST Warfarin [Coumadin] Med 05/26/17 22:15 Ordered 5 mg PO DAILY atorvaSTATin [Lipitor] Med 05/26/17 22:15 Ordered 20 mg PO BEDTIME hydrOXYzine HCl [Atarax] Med 05/26/17 22:13 Ordered 10 mg PO TID PRN Medication Orders Atorvastatin Calcium (Lipitor) 20 mg PO BEDTIME [facility] Clopidogrel Bisulfate (Plavix) 75 mg PO DAILY [facility] Cyanocobalamin (Vitamin B12) 500 mcg PO DAILY [facility] Finasteride (Proscar) 5 mg PO BEDTIME [facility] Furosemide (Lasix) 40 mg PO DAILY [facility] Hydroxyzine HCl (Atarax) 10 mg PO TID PRN PRN Reason: anxiety, itching Isosorbide Mononitrate (Imdur) 30 mg PO ACBREAKFAST [facility] Lisinopril (Prinivil) 20 mg PO DAILY [facility] Metoprolol Succinate (Toprol Xl) 100 mg PO DAILY [facility] Nitroglycerin (Nitrostat) 0.4 mg SL ATDISCHARGE PRN PRN Reason: Chest Pain Non-Formulary Medication (Oxazepam [Oxazepam]) 15 mg PO ASDIRECTED PRN PRN Reason: Anxiety Pantoprazole Sodium (Protonix) 40 mg PO ACBREAKFAST [facility] Warfarin Sodium (Coumadin) 5 mg PO DAILY [facility] Assessment/Plan Comment:: 87-year-old male with above past medical history presented with generalized weakness that progressed rapidly for the last 2 days without any other symptoms and his WBC 12.4, chest x-ray is concerning for left lingular pneumonia and urinalysis is consistent with UTI. #Pneumonia -Levaquin IV -Do chest x-ray PA and lateral views tomorrow -2 L of IV fluid infusion of normal saline at 125 mL per hour. We'll avoid bolus due to his history of congestive heart failure -Sputum culture is as ordered -2 sets of but cultures are ordered -Influenza swab for influenza A and B screening is ordered -Flutter device and incentive spirometer #Urinary tract infection -Levofloxacin IV -Urine culture is ordered #Generalized weakness Possibly from pneumonia and UTI Physical and a patient with therapy were ordered #Acute on chronic kidney failure -2 L of IV fluid infusion of normal saline at 125 mL per hour -Hold his dose of Lasix. May restart it after tomorrow Avoid nephrotoxic medications #Chronic congestive heart failure His BNP below baseline Work up watching clinically Continue metoprolol succinate and lisinopril and Imdur #History of atrial fibrillation However patient EKG shows sinus rhythm Continue warfarin. Dosing is per pharmacy #Heart valvular disease. Status post valve replacement 1 months ago Patient does not know which valve was replaced. Continue warfarin #Elevated troponin. Chronic Patient does not have chest pain -Repeat troponin tomorrow morning #History of gout Patient right thumb got improved. Tylenol as needed #Essential hypertension Continue metoprolol succinate and lisinopril and Imdur #Anxiety Continue hydroxyzine as needed and oxazepam at bedtime to help with sleep CODE STATUS: Full DVT prophylaxis: She is on warfarin and Plavix so no need for additional pharmaceutical anticoagulation
[2017-05-26] MEDS: Sodium Chloride 0.9% 1,000 ML IV SCH (23:20)
[2017-05-26] MEDS: hydrOXYzine HCl 10 MG Tab PO PRN (23:22)
[2017-05-26] MEDS: Finasteride 5 MG Tab PO SCH (23:22)
[2017-05-26] MEDS: atorvaSTATin 20 MG Tab PO SCH (23:22)
[2017-05-27] MEDS: Isosorbide Mononitrate 30 MG Tab.ER PO SCH (05:33)
[2017-05-27] MEDS: Pantoprazole 40 MG Tab.CR PO SCH (05:33)
[2017-05-27 07:05] LABS: ANION GAP 11.6; CHLORIDE,CL 100 mmol/L (101-111); SODIUM,NA 132 mmol/L (135-145)
[2017-05-27] MEDS: Sodium Chloride 0.9% 1,000 ML IV SCH (07:21)
[2017-05-27] MEDS ORDERED: Magnesium Sulfate/Water 2 GM in Premix Bag 1 BAG IV ONE (08:16)
[2017-05-27] MEDS: Lisinopril 20 MG Tab PO SCH (08:37)
[2017-05-27] MEDS: Clopidogrel 75 MG Tab PO SCH (08:37)
[2017-05-27] MEDS: Cyanocobalamin (Vitamin B12) 100 MCG Tab PO SCH (08:38)
[2017-05-27] MEDS: Metoprolol Succinate 50 MG Tab.ER PO SCH (08:38)
--- NOTE | 2017-05-27 09:35 | PCM.PN ---
- General Info Date of Service: 05/27/17 Admission Dx/Problem (Free Text): Urinary tract infection, pneumonia Subjective Update: Patient states that he is feeling somewhat better. He is still feeling weak and having low energy. He denies fever, chills, nausea, vomiting, chest pain, shortness breath, cough, abdominal pain, diarrhea, any other symptoms or concerns - Patient Data Vitals - Most Recent: Last Vital Signs Temp 37.8 C 05/27/17 07:00 Pulse 69 05/27/17 08:38 Resp 18 05/27/17 07:00 BP 101/48 L 05/27/17 08:38 Pulse Ox 96 05/27/17 07:00 Weight - Most Recent: 77.111 kg I&O - Last 24 Hours: Intake & Output 05/26/17 05/27/17 05/27/17 22:59 06:59 14:59 Intake Total 325 367 6979 Output Total 300 300 Balance -289 848 1200 Lab Results Last 24 Hours: Laboratory Results - last 24 hr 05/27/17 05/27/17 05/27/17 Range/Units 06:15 06:15 06:15 WBC 8.8 (5.0-10.0) 10^3/uL RBC 3.58 L (4.6-6.2) 10^6/uL Hgb 9.3 L (14.0-18.0) g/dL Hct 28.6 L (40.0-54.0) % MCV 79.9 L (80-100) fL MCH 26.0 L (27.0-34.0) pg MCHC 32.5 L (33.0-35.0) g/dL Plt Count 213 (150-450) 10^3/uL Neut % (Auto) 70.4 (42.2-75.2) % Lymph % (Auto) 13.6 L (20.5-50.1) % [place] % (Auto) 13.3 H (2-8) % Eos % (Auto) 2.5 (1.0-3.0) % Baso % (Auto) 0.2 (0.0-1.0) % PT 20.1 H (9.0-12.0) SEC INR 2.0 H (0.9-1.2) Sodium 132 L (135-145) mmol/L Potassium 3.6 (3.6-5.0) mmol/L Chloride 100 L (101-111) mmol/L Carbon Dioxide 24.0 (21.0-31.0) mmol/L Anion Gap 11.6 BUN 31 H (7-18) mg/dL Creatinine 1.1 (0.6-1.3) mg/dL Est Cr Clr Drug Dosing 46.42 mL/min Estimated GFR (MDRD) > 60 BUN/Creatinine Ratio 28.18 Glucose 102 (74-105) mg/dL Calcium 7.9 L (8.4-10.2) mg/dl Magnesium 1.7 L (1.8-2.5) mg/dL Total Bilirubin 0.9 (0.2-1.0) mg/dL AST 19 (10-42) IU/L ALT 10 (10-60) IU/L Alkaline Phosphatase 52 (42-121) IU/L Troponin I 0.06 H* (0.00-0.02) ng/ml Total Protein 5.9 L (6.7-8.2) g/dl Albumin 2.5 L (3.2-5.5) g/dl Globulin 3.4 Albumin/Globulin Ratio 0.74 Med Orders - Current: Current Medications Acetaminophen (Tylenol) 650 mg PO Q4H PRN PRN Reason: Pain (Mild 1-3)/fever Atorvastatin Calcium (Lipitor) 20 mg PO BEDTIME [facility] Last Admin: 05/26/17 23:22 Dose: 20 mg Clopidogrel Bisulfate (Plavix) 75 mg PO DAILY [facility] Last Admin: 05/27/17 08:37 Dose: 75 mg Cyanocobalamin (Vitamin B12) 500 mcg PO DAILY [facility] Last Admin: 05/27/17 08:38 Dose: 500 mcg Docusate Sodium (Colace) 100 mg PO BID PRN PRN Reason: Constipation Finasteride (Proscar) 5 mg PO BEDTIME [facility] Last Admin: 05/26/17 23:22 Dose: 5 mg Furosemide (Lasix) 40 mg PO DAILY [facility] Hydroxyzine HCl (Atarax) 10 mg PO TID PRN PRN Reason: anxiety, itching Last Admin: 05/26/17 23:22 Dose: 10 mg Levofloxacin/Dextrose 250 mg/ (Premix) 50 mls @ 50 mls/hr IV Q24H [facility] Sodium Chloride (Normal Saline) 1,000 mls @ 125 mls/hr IV ASDIRECTED [facility] Stop: 05/28/17 06:14 Last Admin: 05/27/17 07:21 Dose: 125 mls/hr Magnesium Sulfate 2 gm/ Premix 50 mls @ 25 mls/hr IV ONETIME ONE Stop: 05/27/17 10:15 Last Admin: 05/27/17 08:39 Dose: 25 mls/hr Isosorbide Mononitrate (Imdur) 30 mg PO ACBREAKFAST [facility] Last Admin: 05/27/17 05:33 Dose: 30 mg Lisinopril (Prinivil) 20 mg PO DAILY [facility] Last Admin: 05/27/17 08:37 Dose: 20 mg Magnesium Oxide (Magnesium Oxide) 250 mg PO BIDM [facility] Metoprolol Succinate (Toprol Xl) 100 mg PO DAILY [facility] Last Admin: 05/27/17 08:38 Dose: 100 mg Nitroglycerin (Nitrostat) 0.4 mg SL ASDIRECTED PRN PRN Reason: Chest Pain Nf Med (Oxazepam [ Oxazepam] 15 Mg)*Use Own Med 15 mg PO TID PRN PRN Reason: Anxiety Ondansetron HCl (Zofran) 4 mg IVPUSH Q6H PRN PRN Reason: Nausea/Vomiting Pantoprazole Sodium (Protonix) 40 mg PO ACBREAKFAST [facility] Last Admin: 05/27/17 05:33 Dose: 40 mg Polyethylene Glycol (Miralax) 17 gm PO DAILY PRN PRN Reason: Constipation Warfarin Sodium (Coumadin) 2.5 mg PO Fr@1400 [facility] Warfarin Sodium (Coumadin) 5 mg PO SuMoTuWeThSa@1400 [facility] Discontinued Medications Acetaminophen (Tylenol) 650 mg PO NOW ONE Stop: 05/26/17 19:44 Last Admin: 05/26/17 19:53 Dose: 650 mg Levofloxacin/Dextrose 500 mg/ (Premix) 100 mls @ 100 mls/hr IV ONETIME ONE Stop: 05/26/17 22:16 Last Admin: 05/26/17 21:35 Dose: 100 mls/hr - Exam General: Alert, Oriented, Cooperative, No Acute Distress, Other (He still looks tired). No: Moderate Distress, Severe Distress, Sedated, Lethargic HEENT: Pupils Equal, Pupils Reactive, EOMI, Mucous Membr. Moist/[place] Neck: Supple, Trachea Midline, No JVD Lungs: Clear to Auscultation, Normal Respiratory Effort. No: Crackles, Rales, Rhonchi, Rub, Stridor, Wheezing Cardiovascular: Regular Rate, Regular Rhythm GI/Abdominal Exam: Normal Bowel Sounds, Soft, Non-Tender, No Organomegaly, No Distention, No Abnormal Bruit (Male) Exam: Deferred Back Exam: Normal Inspection, Full Range of Motion. No: CVA Tenderness (L), CVA Tenderness (R) Extremities: Normal Inspection, Normal Range of Motion, Non-Tender, No Pedal Edema, Normal Capillary Refill Skin: Warm, Dry, Intact Neurological: No New Focal Deficit Psy/Mental Status: Alert, Normal Affect, Normal Mood - Problem List & Annotations (1) Pneumonia SNOMED Code(s): 507870613 Code(s): J18.9 - PNEUMONIA, UNSPECIFIED ORGANISM Status: Acute Priority: High Current Visit: Yes (2) Essential hypertension SNOMED Code(s): 91611679 Code(s): I10 - ESSENTIAL (PRIMARY) HYPERTENSION Status: Chronic Current Visit: Yes (3) Acute kidney injury superimposed on chronic kidney disease SNOMED Code(s): 19138100 Code(s): N17.9 - ACUTE KIDNEY FAILURE, UNSPECIFIED; N18.9 - CHRONIC KIDNEY DISEASE, UNSPECIFIED Status: Acute Current Visit: Yes (4) Urinary tract infection SNOMED Code(s): 31174356 Code(s): N39.0 - URINARY TRACT INFECTION, SITE NOT SPECIFIED Status: Acute Current Visit: Yes (5) Anxiety SNOMED Code(s): 13938457 Code(s): F41.9 - ANXIETY DISORDER, UNSPECIFIED Status: Chronic Current Visit: No (6) Congestive heart failure SNOMED Code(s): 91834883 Code(s): I50.9 - HEART FAILURE, UNSPECIFIED Status: Chronic Current Visit : No Qualifiers: Qualified Code(s): I50.9 - Heart failure, unspecified (7) Elevated troponin SNOMED Code(s): 363087924, 752417512 Code(s): R74.8 - ABNORMAL LEVELS OF OTHER SERUM ENZYMES Status: Chronic Current Visit: No (8) Hyponatremia syndrome SNOMED Code(s): 9417146 Code(s): E87.1 - HYPO-OSMOLALITY AND HYPONATREMIA Status: Chronic Current Visit: No - Problem List Review Problem List Initiated/Reviewed/Updated: Yes - My Orders Last 24 Hours: My Active Orders 05/26/17 22:41 Flutter Valve Therapy [RT Chest Physiotherapy] [RC] ASDIRECTED RT Incentive Spirometry [RC] ASDIRECTED 05/27/17 06:00 CXR [Chest 2V] [CR] Routine 05/27/17 08:16 Magnesium Sulfate/Water [Magnesium Sulfate 2 GM in Water 50 ML] 2 gm Premix Bag 1 bag IV ONETIME 05/27/17 14:00 Warfarin [Coumadin] 5 mg PO SuMoTuWeThSa@1400 05/27/17 18:00 Magnesium Oxide 250 mg PO BIDM 05/28/17 05:11 BASIC METABOLIC PANEL,BMP [CHEM] AM CBC WITH AUTO DIFF [HEME] AM TROPONIN I [CHEM] AM 05/28/17 14:00 Warfarin [Coumadin] 2.5 mg PO Fr@1400 - Plan Plan:: 87-year-old male with above past medical history presented with generalized weakness that progressed rapidly for the last 2 days without any other symptoms and his WBC 12.4, chest x-ray is concerning for left lingular pneumonia and urinalysis is consistent with UTI. He received 2 L of IV fluids. #Pneumonia -WBC is normal now -Levaquin IV -Do chest x-ray PA and lateral views today -Sputum culture is as ordered -2 sets of but cultures are ordered -Influenza swab for influenza A and B screening is ordered -Flutter device and incentive spirometer #Urinary tract infection -Levofloxacin IV -Urine culture grew more than 100,000 gram-negative rods #Generalized weakness Possibly from pneumonia and UTI Physical and a patient with therapy were ordered #Acute on chronic kidney failure -Creatinine is back to baseline -Restart Lasix tomorrow Avoid nephrotoxic medications #Hypomagnesemia -Magnesium is 1.7 -Give magnesium sulfate 2 g IV Magnesium oxide 250 mg twice a day is started #Chronic congestive heart failure His BNP below baseline Work up watching clinically Continue metoprolol succinate and lisinopril and Imdur #History of atrial fibrillation However patient EKG shows sinus rhythm Continue warfarin. Dosing is per pharmacy #Heart valvular disease. Status post valve replacement 1 months ago Patient does not know which valve was replaced. Continue warfarin #Elevated troponin. Chronic Patient does not have chest pain -Troponin increased from 0.04-0.06. This could be due to his infection #History of gout Patient right thumb got improved. Tylenol as needed #Essential hypertension Continue metoprolol succinate and lisinopril and Imdur #Anxiety Continue hydroxyzine as needed and oxazepam at bedtime to help with sleep CODE STATUS: Full DVT prophylaxis: She is on warfarin and Plavix so no need for additional pharmaceutical anticoagulation We'll try to get his records from [facility]
--- NOTE | 2017-05-27 10:08 | CR ---
Clinical history: 87-year-old male with clinical concern "possible pneumonia". Interpretation: Sternotomy wires, mediastinal clips and aortic valve prosthesis. Normal cardiac silhouette without cephalization of vascular flow, signs of alveolar edema or dependen t effusion (calcifications arch of the aorta). No lung mass, hilar lymphadenopathy or focal lobar pneumonia. No atelectasis/collapse. No pneumothorax. CONCLUSION: No acute new cardiopulmonary abnormality since recent 26 May 2017 or earlier Dec exam.
[2017-05-27] MEDS: Acetaminophen 325 MG Tab PO PRN ×2 (12:15→20:58)
[2017-05-27] MEDS: [UNRECOGNIZED DRUG - OTHER] PO PRN ×2 (13:38→21:05)
[2017-05-27] MEDS: OXAZEPAM 15 MG PO PRN ×2 (13:38→21:05)
[2017-05-27] MEDS ORDERED: Warfarin 5 MG Tab PO SCH (14:00)
[2017-05-27] MEDS: Sodium Chloride 0.9% 10 ML Syringe FLUSH PRN (17:41)
[2017-05-27] MEDS: Finasteride 5 MG Tab PO SCH (20:53)
[2017-05-27] MEDS: atorvaSTATin 20 MG Tab PO SCH (20:54)
[2017-05-27] MEDS: hydrOXYzine HCl 10 MG Tab PO PRN (20:59)
[2017-05-27] MEDS: Levofloxacin/Dextrose 5%-Water 250 MG in Premix Bag 1 BAG IV SCH (22:40)
--- NOTE | 2017-05-27 23:21 | EKG ---
05/26/2017 - MARY AMARAL I reviewed the EKG and agree with the machine's reading. [facility] /[id number]
[2017-05-28] MEDS: Isosorbide Mononitrate 30 MG Tab.ER PO SCH (05:21)
[2017-05-28] MEDS: Pantoprazole 40 MG Tab.CR PO SCH (05:21)
[2017-05-28 06:54] LABS: ANION GAP 11.9; CHLORIDE,CL 102 mmol/L (101-111); SODIUM,NA 134 mmol/L (135-145)
[2017-05-28] MEDS: OXAZEPAM 15 MG PO PRN ×2 (10:13→21:02)
[2017-05-28] MEDS: [UNRECOGNIZED DRUG - OTHER] PO PRN ×2 (10:13→21:02)
[2017-05-28] MEDS: Furosemide 40 MG Tab PO SCH (10:14)
[2017-05-28] MEDS: Metoprolol Succinate 50 MG Tab.ER PO SCH (10:14)
[2017-05-28] MEDS: Clopidogrel 75 MG Tab PO SCH (10:14)
[2017-05-28] MEDS: Acetaminophen 325 MG Tab PO PRN (10:15)
[2017-05-28] MEDS: Lisinopril 20 MG Tab PO SCH (10:15)
[2017-05-28] MEDS: Cyanocobalamin (Vitamin B12) 100 MCG Tab PO SCH (10:16)
[2017-05-28] MEDS: Sodium Chloride 0.9% 10 ML Syringe FLUSH PRN ×3 (10:18→22:33)
--- NOTE | 2017-05-28 11:42 | PCM.PN ---
- General Info Admission Dx/Problem (Free Text): Urinary tract infection, pneumonia Subjective Update: Patient states that he is feeling the same as yesterday. He is still feeling weak and having low energy. He still needing help to go to the bathroom. He still complains about arthritis. He denies fever, chills, nausea, vomiting, chest pain, shortness breath, cough, abdominal pain, diarrhea, any other symptoms or concerns - Patient Data Vitals - Most Recent: Last Vital Signs Temp 37.1 C 05/28/17 11:00 Pulse 69 05/28/17 11:00 Resp 20 05/28/17 11:00 BP 121/55 L 05/28/17 11:00 Pulse Ox 98 05/28/17 11:00 Weight - Most Recent: 75.024 kg I&O - Last 24 Hours: Intake & Output 05/27/17 05/28/17 05/28/17 22:59 06:59 14:59 Intake Total 1474 200 200 Output Total 2075 Balance 1474 -1875 200 Lab Results Last 24 Hours: Laboratory Results - last 24 hr 05/28/17 05/28/17 05/28/17 Range/Units 06:16 06:16 06:16 WBC 7.5 (5.0-10.0) 10^3/uL RBC 3.59 L (4.6-6.2) 10^6/uL Hgb 9.4 L (14.0-18.0) g/dL Hct 28.4 L (40.0-54.0) % MCV 79.1 L (80-100) fL MCH 26.2 L (27.0-34.0) pg MCHC 33.1 (33.0-35.0) g/dL Plt Count 204 (150-450) 10^3/uL Neut % (Auto) 65.0 (42.2-75.2) % Lymph % (Auto) 17.2 L (20.5-50.1) % [place] % (Auto) 13.2 H (2-8) % Eos % (Auto) 4.3 H (1.0-3.0) % Baso % (Auto) 0.3 (0.0-1.0) % PT 21.4 H (9.0-12.0) SEC INR 2.1 H (0.9-1.2) Sodium 134 L (135-145) mmol/L Potassium 3.9 (3.6-5.0) mmol/L Chloride 102 (101-111) mmol/L Carbon Dioxide 24.0 (21.0-31.0) mmol/L Anion Gap 11.9 BUN 26 H (7-18) mg/dL Creatinine 1.1 (0.6-1.3) mg/dL Est Cr Clr Drug Dosing 46.42 mL/min Estimated GFR (MDRD) > 60 Glucose 93 (74-105) mg/dL Calcium 8.1 L (8.4-10.2) mg/dl Troponin I 0.04 H* (0.00-0.02) ng/ml Valentín Results Last 24 Hours: Microbiology 05/28/17 09:05 Gram Stain - Final Sputum - Expectorated Med Orders - Current: Current Medications Acetaminophen (Tylenol) 650 mg PO Q4H PRN PRN Reason: Pain (Mild 1-3)/fever Last Admin: 05/28/17 10:15 Dose: 650 mg Atorvastatin Calcium (Lipitor) 20 mg PO BEDTIME [facility] Last Admin: 05/27/17 20:54 Dose: 20 mg Clopidogrel Bisulfate (Plavix) 75 mg PO DAILY [facility] Last Admin: 05/28/17 10:14 Dose: 75 mg Cyanocobalamin (Vitamin B12) 500 mcg PO DAILY [facility] Last Admin: 05/28/17 10:16 Dose: 500 mcg Docusate Sodium (Colace) 100 mg PO BID PRN PRN Reason: Constipation Finasteride (Proscar) 5 mg PO BEDTIME [facility] Last Admin: 05/27/17 20:53 Dose: 5 mg Furosemide (Lasix) 40 mg PO DAILY [facility] Last Admin: 05/28/17 10:14 Dose: 40 mg Hydroxyzine HCl (Atarax) 10 mg PO TID PRN PRN Reason: anxiety, itching Last Admin: 05/27/17 20:59 Dose: 10 mg Levofloxacin/Dextrose 250 mg/ (Premix) 50 mls @ 50 mls/hr IV Q24H [facility] Last Admin: 05/27/17 22:40 Dose: 50 mls/hr Vancomycin HCl 1.25 gm/ Sodium (Chloride) 250 mls @ 166.667 mls/hr IV Q24H [facility] Last Admin: 05/27/17 20:51 Dose: 1.25 mls/hr Isosorbide Mononitrate (Imdur) 30 mg PO ACBREAKFAST [facility] Last Admin: 05/28/17 05:21 Dose: 30 mg Lisinopril (Prinivil) 20 mg PO DAILY [facility] Last Admin: 05/28/17 10:15 Dose: 20 mg Magnesium Oxide (Magnesium Oxide) 250 mg PO BIDM [facility] Last Admin: 05/28/17 10:15 Dose: 250 mg Metoprolol Succinate (Toprol Xl) 100 mg PO DAILY [facility] Last Admin: 05/28/17 10:14 Dose: 100 mg Nitroglycerin (Nitrostat) 0.4 mg SL ASDIRECTED PRN PRN Reason: Chest Pain Oxazepam 15 Mg- (Nonformulary Med) 15 mg PO TID PRN PRN Reason: Anxiety Last Admin: 05/28/17 10:13 Dose: 15 mg Ondansetron HCl (Zofran) 4 mg IVPUSH Q6H PRN PRN Reason: Nausea/Vomiting Pantoprazole Sodium (Protonix) 40 mg PO ACBREAKFAST [facility] Last Admin: 05/28/17 05:21 Dose: 40 mg Polyethylene Glycol (Miralax) 17 gm PO DAILY PRN PRN Reason: Constipation Sodium Chloride (Saline Flush) 10 ml FLUSH ASDIRECTED PRN PRN Reason: Keep Vein Open Last Admin: 05/28/17 10:18 Dose: 10 ml Vancomycin HCl (Pharmacy To Dose - Vancomycin) 1 dose .XX ASDIRECTED [facility] Warfarin Sodium (Coumadin) 2.5 mg PO Fr@1400 [facility] Warfarin Sodium (Coumadin) 5 mg PO SuMoTuWeThSa@1400 [facility] Last Admin: 05/27/17 13:39 Dose: 5 mg Warfarin Sodium (Pharmacy To Dose - Warfarin) 1 dose .XX ASDIRECTED [facility] Discontinued Medications Acetaminophen (Tylenol) 650 mg PO NOW ONE Stop: 05/26/17 19:44 Last Admin: 05/26/17 19:53 Dose: 650 mg Levofloxacin/Dextrose 500 mg/ (Premix) 100 mls @ 100 mls/hr IV ONETIME ONE Stop: 05/26/17 22:16 Last Admin: 05/26/17 21:35 Dose: 100 mls/hr Sodium Chloride (Normal Saline) 1,000 mls @ 125 mls/hr IV ASDIRECTED [facility] Stop: 05/28/17 06:14 Last Infusion: 05/27/17 17:43 Dose: Infused Magnesium Sulfate 2 gm/ Premix 50 mls @ 25 mls/hr IV ONETIME ONE Stop: 05/27/17 10:15 Last Admin: 05/27/17 08:39 Dose: 25 mls/hr - Exam General: Alert, Oriented, Cooperative, No Acute Distress, Other (He still looks weak and frail). No: Mild Distress, Moderate Distress, Severe Distress, Sedated , Lethargic, Obtunded HEENT: Pupils Equal, Pupils Reactive, EOMI, Mucous Membr. Moist/[place] Neck: Supple, Trachea Midline, No JVD Lungs: Clear to Auscultation, Normal Respiratory Effort. No: Decreased Breath Sounds, Crackles, Rales, Rhonchi, Rub, Stridor, Wheezing Cardiovascular: Regular Rate, Regular Rhythm GI/Abdominal Exam: Normal Bowel Sounds, Soft, Non-Tender, No Organomegaly, No Distention, No Abnormal Bruit, No Mass (Male) Exam: Deferred Back Exam: Normal Inspection, Full Range of Motion. No: CVA Tenderness (L), CVA Tenderness (R) Extremities: Normal Inspection, Normal Range of Motion, Non-Tender, No Pedal Edema, Normal Capillary Refill, Other (No erythematous or swelling joints appreciated) Skin: Warm, Dry, Intact Neurological: No New Focal Deficit Psy/Mental Status: Alert, Normal Affect, Normal Mood - Problem List & Annotations (1) Pneumonia SNOMED Code(s): 274025727 Code(s): J18.9 - PNEUMONIA, UNSPECIFIED ORGANISM Status: Acute Priority: High Current Visit: Yes (2) Essential hypertension SNOMED Code(s): 21898963 Code(s): I10 - ESSENTIAL (PRIMARY) HYPERTENSION Status: Chronic Current Visit: Yes (3) Acute kidney injury superimposed on chronic kidney disease SNOMED Code(s): 38605024 Code(s): N17.9 - ACUTE KIDNEY FAILURE, UNSPECIFIED; N18.9 - CHRONIC KIDNEY DISEASE, UNSPECIFIED Status: Acute Current Visit: Yes (4) Urinary tract infection SNOMED Code(s): 43569423 Code(s): N39.0 - URINARY TRACT INFECTION, SITE NOT SPECIFIED Status: Acute Current Visit: Yes (5) Anxiety SNOMED Code(s): 66005119 Code(s): F41.9 - ANXIETY DISORDER, UNSPECIFIED Status: Chronic Current Visit: No (6) Congestive heart failure SNOMED Code(s): 92132370 Code(s): I50.9 - HEART FAILURE, UNSPECIFIED Status: Chronic Current Visit : No Qualifiers: Qualified Code(s): I50.9 - Heart failure, unspecified (7) Elevated troponin SNOMED Code(s): 963783276, 968984378 Code(s): R74.8 - ABNORMAL LEVELS OF OTHER SERUM ENZYMES Status: Chronic Current Visit: No (8) Hyponatremia syndrome SNOMED Code(s): 7419736 Code(s): E87.1 - HYPO-OSMOLALITY AND HYPONATREMIA Status: Chronic Current Visit: No - Problem List Review Problem List Initiated/Reviewed/Updated: Yes - My Orders Last 24 Hours: My Active Orders 05/27/17 10:30 Warfarin Pharmacy to Dose [Pharmacy to Dose - Warfarin] 1 dose .XX ASDIRECTED 05/27/17 14:00 Warfarin [Coumadin] 5 mg PO SuMoTuWeThSa@1400 05/27/17 15:35 Peripheral IV Care [RC] . DIRECTED Sodium Chloride 0.9% [Saline Flush] 10 ml FLUSH ASDIRECTED PRN Peripheral IV Insertion Adult [OM.PC] Routine 05/27/17 18:00 Magnesium Oxide 250 mg PO BIDM 05/27/17 20:00 Vancomycin Pharmacy to Dose [Pharmacy to Dose - Vancomycin] 1 dose .XX ASDIRECTED 05/27/17 21:00 Vancomycin 1.25 gm Sodium Chloride 0.9% [Normal Saline] 250 ml IV Q24H 05/28/17 08:27 BASIC METABOLIC PANEL,BMP [CHEM] Routine 05/28/17 14:00 Warfarin [Coumadin] 2.5 mg PO Fr@1400 05/29/17 05:11 CBC WITH AUTO DIFF [HEME] AM - Plan Plan:: 87-year-old male with above past medical history presented with generalized weakness that progressed rapidly for the last 2 days without any other symptoms and his WBC 12.4, chest x-ray is concerning for left lingular pneumonia and urinalysis is consistent with UTI. CT head was unremarkable for acute findings. EKG reported sinus rhythm with first degree AV block without acute ST changes. He received 2 L of IV fluids. Repeated chest x-ray next day did not report infiltrate #Pneumonia -WBC is normal now -Levaquin IV -Patient was not able to give adequate sputum sample. We'll reorder sputum culture again - one set of blood culture reported gram-positive cocci in cluster. -Vancomycin was added yesterday, as patient has recently had aortic bio-valve placement. No murmur heard -Influenza swab for influenza A and B screening is ordered -Flutter device and incentive spirometer #Urinary tract infection -Continue Levofloxacin IV -Urine culture grew more than 100,000 gram-negative rods #Generalized weakness Possibly from pneumonia and UTI Physical and a patient with therapy were ordered #Acute on chronic kidney failure -Creatinine is back to baseline and stable -Restart Lasix today Avoid nephrotoxic medications #Hypomagnesemia -Magnesium is 1.7 yesterday and was given magnesium sulfate 2 g IV -He was started on Magnesium oxide 250 mg twice a day -Recheck magnesium tomorrow #Chronic congestive heart failure His BNP below baseline Work up watching clinically Continue metoprolol succinate and lisinopril and Imdur #History of atrial fibrillation However patient EKG shows sinus rhythm Continue warfarin. Dosing is per pharmacy #Heart valvular disease. Status post valve replacement 1 months ago Patient does not know which valve was replaced. Continue warfarin #Elevated troponin. Chronic Patient does not have chest pain -Troponin increased from 0.04-0.06. This could be due to his infection #History of gout Patient right thumb got improved. Tylenol as needed #Essential hypertension Continue metoprolol succinate and lisinopril and Imdur #Chronic arthritis Continue Tylenol -Start icy hot cream as needed #Anxiety Continue hydroxyzine as needed and oxazepam at bedtime to help with sleep CODE STATUS: Full DVT prophylaxis: She is on warfarin and Plavix so no need for additional pharmaceutical anticoagulation We'll try to get his records from [facility]
[2017-05-28] MEDS ORDERED: Warfarin 5 MG Tab PO ONE (14:00)
[2017-05-28] MEDS ORDERED: Warfarin 2.5 MG Tab PO SCH (14:00)
[2017-05-28] MEDS: Menthol/Methyl Salicylate 85 GM Tube TOP PRN ×2 (16:01→21:01)
[2017-05-28] MEDS: Finasteride 5 MG Tab PO SCH (21:00)
[2017-05-28] MEDS: atorvaSTATin 20 MG Tab PO SCH (21:01)
[2017-05-28] MEDS: Levofloxacin/Dextrose 5%-Water 250 MG in Premix Bag 1 BAG IV SCH (22:31)
[2017-05-29] MEDS: Acetaminophen 325 MG Tab PO PRN (00:28)
[2017-05-29] MEDS: Isosorbide Mononitrate 30 MG Tab.ER PO SCH (06:17)
[2017-05-29] MEDS: Pantoprazole 40 MG Tab.CR PO SCH (06:17)
[2017-05-29] MEDS: OXAZEPAM 15 MG PO PRN ×3 (06:22→21:42)
[2017-05-29] MEDS: [UNRECOGNIZED DRUG - OTHER] PO PRN ×3 (06:22→21:42)
[2017-05-29 07:05] LABS: ANION GAP 11.7; CHLORIDE,CL 102 mmol/L (101-111); SODIUM,NA 133 mmol/L (135-145)
[2017-05-29] MEDS: Lisinopril 20 MG Tab PO SCH (09:22)
[2017-05-29] MEDS: Metoprolol Succinate 50 MG Tab.ER PO SCH (09:22)
[2017-05-29] MEDS: Cyanocobalamin (Vitamin B12) 100 MCG Tab PO SCH (09:22)
[2017-05-29] MEDS: Furosemide 40 MG Tab PO SCH (09:22)
[2017-05-29] MEDS: Clopidogrel 75 MG Tab PO SCH (09:23)
--- NOTE | 2017-05-29 11:48 | PCM.PN ---
- General Info Date of Service: 05/29/17 Admission Dx/Problem (Free Text): Urinary tract infection, pneumonia Subjective Update: Patient states that he is feeling better today. He is still feeling weak and having low energy. He still needing help to go to the bathroom but walking well with assistance . e denies fever, chills, nausea, vomiting, chest pain, shortness breath, cough, abdominal pain, diarrhea, any other symptoms , he slept well last night and appetite is good Functional Status: Reports: Pain Controlled, Tolerating Diet, Ambulating, Urinating - Review of Systems General: Reports: Weakness, Fatigue, Malaise, Appetite (good). Denies: Fever, Chills HEENT: Denies: Headaches, Sinus Congestion, Sore Throat, Visual Changes Pulmonary: Denies: Shortness of Breath, Pleuritic Chest Pain, Cough, Sputum, Wheezing Cardiovascular: Denies: Chest Pain, Dyspnea on Exertion, Lightheadedness Gastrointestinal: Denies: Abdominal Pain, Diarrhea, Difficulty Swallowing, Nausea, Vomiting Genitourinary: Denies: Dysuria, Frequency, Burning, Incontinence, Flank Pain Musculoskeletal: Denies: Neck Pain, Shoulder Pain, Joint Swelling Skin: Denies: Cyanosis, Jaundice, Bruising, Pruritis, Rash Neurological: Denies: Confusion, Numbness, Tremors Psychiatric: Reports: No Symptoms - Patient Data Vitals - Most Recent: Last Vital Signs Temp 37.0 C 05/29/17 11:39 Pulse 68 05/29/17 11:39 Resp 20 05/29/17 11:39 BP 101/53 L 05/29/17 11:39 Pulse Ox 100 05/29/17 11:39 Weight - Most Recent: 72.484 kg I&O - Last 24 Hours: Intake & Output 05/28/17 05/29/17 05/29/17 22:59 06:59 14:59 Intake Total 1334 594 360 Output Total 1125 900 Balance 209 -306 360 Lab Results Last 24 Hours: Laboratory Results - last 24 hr 05/29/17 05/29/17 05/29/17 Range/Units 06:05 06:05 06:05 WBC 8.3 (5.0-10.0) 10^3/uL RBC 3.66 L (4.6-6.2) 10^6/uL Hgb 9.6 L (14.0-18.0) g/dL Hct 28.8 L (40.0-54.0) % MCV 78.7 L (80-100) fL MCH 26.2 L (27.0-34.0) pg MCHC 33.3 (33.0-35.0) g/dL Plt Count 238 (150-450) 10^3/uL Neut % (Auto) 64.3 (42.2-75.2) % Lymph % (Auto) 18.1 L (20.5-50.1) % [place] % (Auto) 12.1 H (2-8) % Eos % (Auto) 5.0 H (1.0-3.0) % Baso % (Auto) 0.5 (0.0-1.0) % PT 26.4 H (9.0-12.0) SEC INR 2.6 H (0.9-1.2) Sodium 133 L (135-145) mmol/L Potassium 3.7 (3.6-5.0) mmol/L Chloride 102 (101-111) mmol/L Carbon Dioxide 23.0 (21.0-31.0) mmol/L Anion Gap 11.7 BUN 22 H (7-18) mg/dL Creatinine 1.0 (0.6-1.3) mg/dL Est Cr Clr Drug Dosing 51.06 mL/min Estimated GFR (MDRD) > 60 Glucose 97 (74-105) mg/dL Calcium 8.0 L (8.4-10.2) mg/dl Magnesium 1.9 (1.8-2.5) mg/dL Valentín Results Last 24 Hours: Microbiology 05/28/17 09:05 Gram Stain - Final Sputum - Expectorated Sputum Culture - Final Med Orders - Current: Current Medications Acetaminophen (Tylenol) 650 mg PO Q4H PRN PRN Reason: Pain (Mild 1-3)/fever Last Admin: 05/29/17 00:28 Dose: 650 mg Atorvastatin Calcium (Lipitor) 20 mg PO BEDTIME [facility] Last Admin: 05/28/17 21:01 Dose: 20 mg Clopidogrel Bisulfate (Plavix) 75 mg PO DAILY [facility] Last Admin: 05/29/17 09:23 Dose: 75 mg Cyanocobalamin (Vitamin B12) 500 mcg PO DAILY [facility] Last Admin: 05/29/17 09:22 Dose: 500 mcg Docusate Sodium (Colace) 100 mg PO BID PRN PRN Reason: Constipation Finasteride (Proscar) 5 mg PO BEDTIME [facility] Last Admin: 05/28/17 21:00 Dose: 5 mg Furosemide (Lasix) 40 mg PO DAILY [facility] Last Admin: 05/29/17 09:22 Dose: 40 mg Hydroxyzine HCl (Atarax) 10 mg PO TID PRN PRN Reason: anxiety, itching Last Admin: 05/27/17 20:59 Dose: 10 mg Levofloxacin/Dextrose 250 mg/ (Premix) 50 mls @ 50 mls/hr IV Q24H [facility] Last Admin: 05/28/17 22:31 Dose: 50 mls/hr Vancomycin HCl 1.25 gm/ Sodium (Chloride) 250 mls @ 166.667 mls/hr IV Q24H [facility] Last Admin: 05/28/17 20:53 Dose: 166.667 mls/hr Isosorbide Mononitrate (Imdur) 30 mg PO ACBREAKFAST [facility] Last Admin: 05/29/17 06:17 Dose: 30 mg Lisinopril (Prinivil) 20 mg PO DAILY [facility] Last Admin: 05/29/17 09:22 Dose: 20 mg Magnesium Oxide (Magnesium Oxide) 250 mg PO BIDM [facility] Last Admin: 05/29/17 09:22 Dose: 250 mg Methyl Salicylate (Icy Hot Cream) 0 gm TOP QID PRN PRN Reason: Arthritis Last Admin: 05/28/17 21:01 Dose: 1 applic Metoprolol Succinate (Toprol Xl) 100 mg PO DAILY [facility] Last Admin: 05/29/17 09:22 Dose: 100 mg Nitroglycerin (Nitrostat) 0.4 mg SL ASDIRECTED PRN PRN Reason: Chest Pain Oxazepam 15 Mg- (Nonformulary Med) 15 mg PO TID PRN PRN Reason: Anxiety Last Admin: 05/29/17 06:22 Dose: 15 mg Ondansetron HCl (Zofran) 4 mg IVPUSH Q6H PRN PRN Reason: Nausea/Vomiting Pantoprazole Sodium (Protonix) 40 mg PO ACBREAKFAST [facility] Last Admin: 05/29/17 06:17 Dose: 40 mg Polyethylene Glycol (Miralax) 17 gm PO DAILY PRN PRN Reason: Constipation Sodium Chloride (Saline Flush) 10 ml FLUSH ASDIRECTED PRN PRN Reason: Keep Vein Open Last Admin: 05/28/17 22:33 Dose: 10 ml Vancomycin HCl (Pharmacy To Dose - Vancomycin) 1 dose .XX ASDIRECTED [facility] Warfarin Sodium (Pharmacy To Dose - Warfarin) 1 dose .XX ASDIRECTED [facility] Warfarin Sodium (Coumadin) 5 mg PO ONETIME ONE Stop: 05/29/17 14:01 Discontinued Medications Acetaminophen (Tylenol) 650 mg PO NOW ONE Stop: 05/26/17 19:44 Last Admin: 05/26/17 19:53 Dose: 650 mg Levofloxacin/Dextrose 500 mg/ (Premix) 100 mls @ 100 mls/hr IV ONETIME ONE Stop: 05/26/17 22:16 Last Admin: 05/26/17 21:35 Dose: 100 mls/hr Sodium Chloride (Normal Saline) 1,000 mls @ 125 mls/hr IV ASDIRECTED [facility] Stop: 05/28/17 06:14 Last Infusion: 05/27/17 17:43 Dose: Infused Magnesium Sulfate 2 gm/ Premix 50 mls @ 25 mls/hr IV ONETIME ONE Stop: 05/27/17 10:15 Last Admin: 05/27/17 08:39 Dose: 25 mls/hr Warfarin Sodium (Coumadin) 2.5 mg PO Fr@1400 [facility] Warfarin Sodium (Coumadin) 5 mg PO SuMoTuWeThSa@1400 [facility] Last Admin: 05/27/17 13:39 Dose: 5 mg Warfarin Sodium (Coumadin) 5 mg PO ONETIME ONE Stop: 05/28/17 14:01 Last Admin: 05/28/17 14:45 Dose: 5 mg - Exam Quality Assessment: Urine Catheter, DVT Prophylaxis. No: Supplemental Oxygen General: Alert, Oriented, Cooperative, No Acute Distress HEENT: Pupils Equal, Mucous Membr. Moist/[place] Neck: Supple, No JVD, No Thyromegaly Lungs: Clear to Auscultation, Normal Respiratory Effort. No: Crackles, Wheezing Cardiovascular: Regular Rate, Regular Rhythm, Murmurs GI/Abdominal Exam: Normal Bowel Sounds, Soft, Non-Tender, No Distention. No: Guarding, Rigid, Rebound, Tender (Male) Exam: Deferred Back Exam: Normal Inspection, Full Range of Motion Extremities: Normal Inspection, No Pedal Edema Skin: Warm, Dry, Intact Neurological: No New Focal Deficit, Normal Gait, Normal Speech Psy/Mental Status: Alert, Normal Affect, Normal Mood - Problem List Review Problem List Initiated/Reviewed/Updated: Yes - My Orders Last 24 Hours: My Active Orders 05/29/17 09:19 Antiembolic Devices [RC] PER UNIT ROUTINE Anti-Embolism Stockings [place] [Antiembolic Hose] [OM.PC] Routine - Plan Plan:: 87-year-old male with above past medical history presented with generalized weakness that progressed rapidly for the last 2 days without any other symptoms and his WBC 12.4, chest x-ray is concerning for left lingular pneumonia and urinalysis is consistent with UTI culture E. Coli, CT head was unremarkable for acute findings. Impression and Plan: #Pneumonia -WBC is normal now - will continue Levaquin IV - one set of blood culture reported gram-positive cocci in cluster ( staphylococcus Epidemics) -as patient has recently had aortic bio-valve placement. No murmur heard, will continue Vancomycin -Encourage to use Flutter device and incentive spirometer #Urinary tract infection with E.Coli -Continue Levofloxacin IV -Urine culture grew more than 100,000 gram-negative rods ( E.Coli) #Generalized weakness Possibly from pneumonia and UTI PT/OT is following the patient #Acute on chronic kidney failure -Creatinine is back to baseline and stable -Restart Lasix and making good urine Avoid nephrotoxic medications #Hypomagnesemia -Magnesium is 1.9 and has received magnesium sulfate 2 g IV -He is on oral on Magnesium oxide 250 mg twice a day -Recheck magnesium tomorrow #Chronic congestive heart failure -Continue metoprolol succinate and lisinopril and Imdur #History of atrial fibrillation -Continue warfarin. Dosing is per pharmacy #Heart valvular disease. Status post valve replacement 1 months ago Patient does not know which valve was replaced. Continue warfarin #History of gout =Patient had it in right thumb got improved. Tylenol as needed #Essential hypertension Continue metoprolol succinate and lisinopril and Imdur #Chronic arthritis Continue Tylenol -Start icy hot cream as needed #Anxiety Continue hydroxyzine as needed and oxazepam at bedtime to help with sleep CODE STATUS: Full DVT prophylaxis: She is on warfarin and Plavix so no need for additional pharmaceutical anticoagulation
[2017-05-29] MEDS ORDERED: Warfarin 5 MG Tab PO ONE (14:00)
[2017-05-29] MEDS: Levofloxacin/Dextrose 5%-Water 250 MG in Premix Bag 1 BAG IV SCH (20:00)
[2017-05-29] MEDS: atorvaSTATin 20 MG Tab PO SCH (20:56)
[2017-05-29] MEDS: Finasteride 5 MG Tab PO SCH (20:57)
[2017-05-30] MEDS: Acetaminophen 325 MG Tab PO PRN ×2 (01:37→21:58)
[2017-05-30] MEDS: OXAZEPAM 15 MG PO PRN ×3 (05:49→21:57)
[2017-05-30] MEDS: [UNRECOGNIZED DRUG - OTHER] PO PRN ×3 (05:49→21:57)
[2017-05-30] MEDS: Pantoprazole 40 MG Tab.CR PO SCH (05:50)
[2017-05-30] MEDS: Isosorbide Mononitrate 30 MG Tab.ER PO SCH (05:50)
[2017-05-30] MEDS: Lisinopril 20 MG Tab PO SCH (09:27)
[2017-05-30] MEDS: Metoprolol Succinate 50 MG Tab.ER PO SCH (09:27)
[2017-05-30] MEDS: Furosemide 40 MG Tab PO SCH (09:27)
[2017-05-30] MEDS: Clopidogrel 75 MG Tab PO SCH (09:27)
[2017-05-30] MEDS: Cyanocobalamin (Vitamin B12) 100 MCG Tab PO SCH (09:28)
--- NOTE | 2017-05-30 10:28 | PCM.PN ---
- General Info Date of Service: 05/30/17 Admission Dx/Problem (Free Text): Admitted with : Urinary tract infection and pneumonia Subjective Update: Patient states that he is feeling better today. He is still feeling weak and can not get up from bed to chair by himself. He still needing help to go to the bathroom but walking well with assistance . He denies fever, chills, nausea, vomiting, chest pain, shortness breath, cough, abdominal pain, diarrhea, any other symptoms , he slept well last night and appetite is good Functional Status: Reports: Pain Controlled, Tolerating Diet, Ambulating ( without assistance), Urinating (has santos catheter) - Review of Systems General: Reports: Weakness, Appetite (good). Denies: Fever, Chills HEENT: Denies: Headaches, Sinus Congestion, Sore Throat, Visual Changes Pulmonary: Denies: Shortness of Breath, Cough, Sputum, Wheezing Cardiovascular: Denies: Chest Pain, Palpitations, Lightheadedness Gastrointestinal: Denies: Abdominal Pain, Diarrhea, Difficulty Swallowing, Nausea, Vomiting Genitourinary: Reports: Retention (has santos catheter). Denies: Dysuria, Frequency, Burning, Flank Pain Musculoskeletal: Reports: Joint Pain. Denies: Neck Pain, Shoulder Pain, Hand Pain, Leg Pain Skin: Denies: Cyanosis, Jaundice, Dryness, Bruising, Pruritis, Rash Neurological: Denies: Confusion, Numbness, Tremors Psychiatric: Denies: Confusion, Anxiety - Patient Data Vitals - Most Recent: Last Vital Signs Temp 36.7 C 05/30/17 07:54 Pulse 67 05/30/17 09:27 Resp 20 05/30/17 07:54 BP 111/56 L 05/30/17 09:27 Pulse Ox 98 05/30/17 07:54 Weight - Most Recent: 73.21 kg I&O - Last 24 Hours: Intake & Output 05/29/17 05/30/17 05/30/17 22:59 06:59 14:59 Intake Total 881 300 Output Total 800 1750 Balance 81 -1450 Lab Results Last 24 Hours: Laboratory Results - last 24 hr 05/30/17 Range/Units 05:05 PT 31.4 H (9.0-12.0) SEC INR 3.1 H (0.9-1.2) Med Orders - Current: Current Medications Acetaminophen (Tylenol) 650 mg PO Q4H PRN PRN Reason: Pain (Mild 1-3)/fever Last Admin: 05/30/17 01:37 Dose: 650 mg Atorvastatin Calcium (Lipitor) 20 mg PO BEDTIME [facility] Last Admin: 05/29/17 20:56 Dose: 20 mg Clopidogrel Bisulfate (Plavix) 75 mg PO DAILY [facility] Last Admin: 05/30/17 09:27 Dose: 75 mg Cyanocobalamin (Vitamin B12) 500 mcg PO DAILY [facility] Last Admin: 05/30/17 09:28 Dose: 500 mcg Docusate Sodium (Colace) 100 mg PO BID PRN PRN Reason: Constipation Finasteride (Proscar) 5 mg PO BEDTIME [facility] Last Admin: 05/29/17 20:57 Dose: 5 mg Furosemide (Lasix) 40 mg PO DAILY [facility] Last Admin: 05/30/17 09:27 Dose: 40 mg Hydroxyzine HCl (Atarax) 10 mg PO TID PRN PRN Reason: anxiety, itching Last Admin: 05/27/17 20:59 Dose: 10 mg Levofloxacin/Dextrose 250 mg/ (Premix) 50 mls @ 50 mls/hr IV Q24H [facility] Last Infusion: 05/29/17 21:02 Dose: Infused Vancomycin HCl 1.25 gm/ Sodium (Chloride) 250 mls @ 166.667 mls/hr IV Q24H [facility] Last Admin: 05/29/17 21:04 Dose: 166.667 mls/hr Isosorbide Mononitrate (Imdur) 30 mg PO ACBREAKFAST [facility] Last Admin: 05/30/17 05:50 Dose: 30 mg Lisinopril (Prinivil) 20 mg PO DAILY [facility] Last Admin: 05/30/17 09:27 Dose: 20 mg Magnesium Oxide (Magnesium Oxide) 250 mg PO BIDM [facility] Last Admin: 05/30/17 09:27 Dose: 250 mg Methyl Salicylate (Icy Hot Cream) 0 gm TOP QID PRN PRN Reason: Arthritis Last Admin: 05/28/17 21:01 Dose: 1 applic Metoprolol Succinate (Toprol Xl) 100 mg PO DAILY [facility] Last Admin: 05/30/17 09:27 Dose: 100 mg Nitroglycerin (Nitrostat) 0.4 mg SL ASDIRECTED PRN PRN Reason: Chest Pain Oxazepam 15 Mg- (Nonformulary Med) 15 mg PO TID PRN PRN Reason: Anxiety Last Admin: 05/30/17 05:49 Dose: 15 mg Ondansetron HCl (Zofran) 4 mg IVPUSH Q6H PRN PRN Reason: Nausea/Vomiting Pantoprazole Sodium (Protonix) 40 mg PO ACBREAKFAST [facility] Last Admin: 05/30/17 05:50 Dose: 40 mg Polyethylene Glycol (Miralax) 17 gm PO DAILY PRN PRN Reason: Constipation Sodium Chloride (Saline Flush) 10 ml FLUSH ASDIRECTED PRN PRN Reason: Keep Vein Open Last Admin: 05/28/17 22:33 Dose: 10 ml Vancomycin HCl (Pharmacy To Dose - Vancomycin) 1 dose .XX ASDIRECTED [facility] Warfarin Sodium (Pharmacy To Dose - Warfarin) 1 dose .XX ASDIRECTED [facility] Warfarin Sodium (Coumadin) 2.5 mg PO ONETIME ONE Stop: 05/30/17 14:01 Discontinued Medications Acetaminophen (Tylenol) 650 mg PO NOW ONE Stop: 05/26/17 19:44 Last Admin: 05/26/17 19:53 Dose: 650 mg Levofloxacin/Dextrose 500 mg/ (Premix) 100 mls @ 100 mls/hr IV ONETIME ONE Stop: 05/26/17 22:16 Last Admin: 05/26/17 21:35 Dose: 100 mls/hr Sodium Chloride (Normal Saline) 1,000 mls @ 125 mls/hr IV ASDIRECTED [facility] Stop: 05/28/17 06:14 Last Infusion: 05/27/17 17:43 Dose: Infused Magnesium Sulfate 2 gm/ Premix 50 mls @ 25 mls/hr IV ONETIME ONE Stop: 05/27/17 10:15 Last Admin: 05/27/17 08:39 Dose: 25 mls/hr Warfarin Sodium (Coumadin) 2.5 mg PO Fr@1400 [facility] Warfarin Sodium (Coumadin) 5 mg PO SuMoTuWeThSa@1400 [facility] Last Admin: 05/27/17 13:39 Dose: 5 mg Warfarin Sodium (Coumadin) 5 mg PO ONETIME ONE Stop: 05/28/17 14:01 Last Admin: 05/28/17 14:45 Dose: 5 mg Warfarin Sodium (Coumadin) 5 mg PO ONETIME ONE Stop: 05/29/17 14:01 Last Admin: 05/29/17 14:10 Dose: 5 mg - Exam Quality Assessment: Urine Catheter, DVT Prophylaxis. No: Supplemental Oxygen General: Alert, Oriented, Cooperative, No Acute Distress HEENT: Pupils Equal, EOMI, Mucous Membr. Moist/[place] Neck: Supple, No JVD, No Thyromegaly Lungs: Clear to Auscultation, Normal Respiratory Effort Cardiovascular: Regular Rate, Regular Rhythm, Murmurs GI/Abdominal Exam: Normal Bowel Sounds, Soft, Non-Tender. No: Guarding, Rigid, Rebound (Male) Exam: Deferred Back Exam: Normal Inspection, Full Range of Motion Extremities: Normal Inspection, No Pedal Edema Skin: Warm, Dry, Intact Neurological: No New Focal Deficit Psy/Mental Status: Alert, Normal Affect, Normal Mood - Problem List Review Problem List Initiated/Reviewed/Updated: Yes - My Orders Last 24 Hours: My Active Orders 05/31/17 06:00 BASIC METABOLIC PANEL,BMP [CHEM] Routine CBC WITH AUTO DIFF [HEME] Routine - Plan Plan:: 87-year-old male with above past medical history presented with generalized weakness that progressed rapidly for the last 2 days without any other symptoms and his WBC 12.4, chest x-ray is concerning for left lingular pneumonia and urinalysis is consistent with UTI culture growing E. Coli, CT head was unremarkable for acute findings. Impression and Plan: #Pneumonia -WBC is normal now - will continue Levaquin IV - one set of blood culture reported gram-positive cocci in cluster ( staphylococcus Epidemics) -as patient has recently had aortic bio-valve placement. No murmur heard, will stop Vancomycin ( he has Bioprosthetic valve but the e.coli and staphepi both sensitive to Levofloxacin) -Encourage to use Flutter device and incentive salinometer #Urinary tract infection with E.Coli -Continue Levofloxacin IV -Urine culture grew more than 100,000 gram-negative rods ( E.Coli) #Generalized weakness Possibly from pneumonia and UTI PT/OT is following the patient #Acute on chronic kidney failure -Creatinine is back to baseline and stable -Restart Lasix and making good urine Avoid nephrotoxic medications #Hypomagnesemia -Magnesium is 1.9 and has received magnesium sulfate 2 g IV -He is on oral on Magnesium oxide 250 mg twice a day -Recheck magnesium tomorrow #Chronic congestive heart failure -Continue metoprolol succinate and lisinopril and Imdur #History of atrial fibrillation -Continue warfarin. Dosing is per pharmacy #Heart valvular disease. Status post valve replacement 1 months ago Patient does not know which valve was replaced. Continue warfarin #History of gout =Patient had it in right thumb got improved. Tylenol as needed -Start him on Prednisone 20 mg daily #Essential hypertension Continue metoprolol succinate and lisinopril and Imdur #Chronic arthritis -Continue Tylenol #Anxiety Continue hydroxyzine as needed and oxazepam at bedtime to help with sleep CODE STATUS: Full DVT prophylaxis: She is on warfarin and Plavix so no need for additional pharmaceutical anticoagulation
[2017-05-30] MEDS: hydrOXYzine HCl 10 MG Tab PO PRN (13:46)
[2017-05-30] MEDS ORDERED: Warfarin 2.5 MG Tab PO ONE (14:00)
[2017-05-30] MEDS: Sodium Chloride 0.9% 10 ML Syringe FLUSH PRN ×2 (20:38→21:38)
[2017-05-30] MEDS: Levofloxacin/Dextrose 5%-Water 250 MG in Premix Bag 1 BAG IV SCH (20:39)
[2017-05-30] MEDS: atorvaSTATin 20 MG Tab PO SCH (20:44)
[2017-05-30] MEDS: Finasteride 5 MG Tab PO SCH (20:45)
[2017-05-31] MEDS: Isosorbide Mononitrate 30 MG Tab.ER PO SCH (05:36)
[2017-05-31] MEDS: Pantoprazole 40 MG Tab.CR PO SCH (05:36)
[2017-05-31 06:54] LABS: ANION GAP 12.9
--- NOTE | 2017-05-31 08:30 | PCM.PN ---
- General Info Date of Service: 05/31/17 Admission Dx/Problem (Free Text): Admitted with : Urinary tract infection and pneumonia Subjective Update: Patient states that he is feeling better today. He is still feeling weak and can not get up from bed to chair by himself. He still needing help to go to the bathroom but walking well with assistance . He denies fever, chills, nausea, vomiting, chest pain, shortness breath, cough, abdominal pain, diarrhea, any other symptoms , he slept well last night and appetite is good Functional Status: Reports: Pain Controlled - Review of Systems General: Reports: No Symptoms HEENT: Reports: No Symptoms Pulmonary: Reports: No Symptoms Cardiovascular: Reports: No Symptoms Gastrointestinal: Reports: No Symptoms Genitourinary: Reports: No Symptoms Musculoskeletal: Reports: No Symptoms Skin: Reports: No Symptoms Neurological: Reports: No Symptoms Psychiatric: Reports: No Symptoms - Patient Data Vitals - Most Recent: Last Vital Signs Temp 98.4 F 05/31/17 07:00 Pulse 74 05/31/17 07:00 Resp 18 05/31/17 07:00 BP 106/52 L 05/31/17 07:00 Pulse Ox 92 L 05/31/17 07:00 Weight - Most Recent: 159 lb 8 oz I&O - Last 24 Hours: Intake & Output 05/30/17 05/31/17 05/31/17 22:59 06:59 14:59 Intake Total 1054 450 Output Total 1925 600 Balance -871 -150 Lab Results Last 24 Hours: Laboratory Results - last 24 hr 05/31/17 05/31/17 05/31/17 Range/Units 06:20 06:20 06:20 WBC 8.4 (5.0-10.0) 10^3/uL RBC 3.81 L (4.6-6.2) 10^6/uL Hgb 9.9 L (14.0-18.0) g/dL Hct 30.0 L (40.0-54.0) % MCV 78.7 L (80-100) fL MCH 26.0 L (27.0-34.0) pg MCHC 33.0 (33.0-35.0) g/dL Plt Count 250 (150-450) 10^3/uL Neut % (Auto) 61.3 (42.2-75.2) % Lymph % (Auto) 20.0 L (20.5-50.1) % [place] % (Auto) 12.2 H (2-8) % Eos % (Auto) 6.1 H (1.0-3.0) % Baso % (Auto) 0.4 (0.0-1.0) % PT 33.1 H (9.0-12.0) SEC INR 3.3 H (0.9-1.2) Sodium 133 L (135-145) mmol/L Potassium 3.9 (3.6-5.0) mmol/L Chloride 99 L (101-111) mmol/L Carbon Dioxide 25.0 (21.0-31.0) mmol/L Anion Gap 12.9 BUN 25 H (7-18) mg/dL Creatinine 1.2 (0.6-1.3) mg/dL Est Cr Clr Drug Dosing 42.55 mL/min Estimated GFR (MDRD) 57 Glucose 93 (74-105) mg/dL Calcium 8.4 (8.4-10.2) mg/dl Magnesium 1.9 (1.8-2.5) mg/dL Med Orders - Current: Current Medications Acetaminophen (Tylenol) 650 mg PO Q4H PRN PRN Reason: Pain (Mild 1-3)/fever Last Admin: 05/30/17 21:58 Dose: 650 mg Atorvastatin Calcium (Lipitor) 20 mg PO BEDTIME [facility] Last Admin: 05/30/17 20:44 Dose: 20 mg Clopidogrel Bisulfate (Plavix) 75 mg PO DAILY [facility] Last Admin: 05/30/17 09:27 Dose: 75 mg Cyanocobalamin (Vitamin B12) 500 mcg PO DAILY [facility] Last Admin: 05/30/17 09:28 Dose: 500 mcg Docusate Sodium (Colace) 100 mg PO BID PRN PRN Reason: Constipation Finasteride (Proscar) 5 mg PO BEDTIME [facility] Last Admin: 05/30/17 20:45 Dose: 5 mg Furosemide (Lasix) 40 mg PO DAILY [facility] Last Admin: 05/30/17 09:27 Dose: 40 mg Hydroxyzine HCl (Atarax) 10 mg PO TID PRN PRN Reason: anxiety, itching Last Admin: 05/30/17 13:46 Dose: 10 mg Levofloxacin/Dextrose 250 mg/ (Premix) 50 mls @ 50 mls/hr IV Q24H [facility] Last Infusion: 05/30/17 21:39 Dose: Infused Isosorbide Mononitrate (Imdur) 30 mg PO ACBREAKFAST [facility] Last Admin: 05/31/17 05:36 Dose: 30 mg Lisinopril (Prinivil) 20 mg PO DAILY [facility] Last Admin: 05/30/17 09:27 Dose: 20 mg Magnesium Oxide (Magnesium Oxide) 250 mg PO BIDM [facility] Last Admin: 05/30/17 17:26 Dose: 250 mg Methyl Salicylate (Icy Hot Cream) 0 gm TOP QID PRN PRN Reason: Arthritis Last Admin: 05/28/17 21:01 Dose: 1 applic Metoprolol Succinate (Toprol Xl) 100 mg PO DAILY [facility] Last Admin: 05/30/17 09:27 Dose: 100 mg Nitroglycerin (Nitrostat) 0.4 mg SL ASDIRECTED PRN PRN Reason: Chest Pain Oxazepam 15 Mg- (Nonformulary Med) 15 mg PO TID PRN PRN Reason: Anxiety Last Admin: 05/30/17 21:57 Dose: 15 mg Ondansetron HCl (Zofran) 4 mg IVPUSH Q6H PRN PRN Reason: Nausea/Vomiting Pantoprazole Sodium (Protonix) 40 mg PO ACBREAKFAST [facility] Last Admin: 05/31/17 05:36 Dose: 40 mg Polyethylene Glycol (Miralax) 17 gm PO DAILY PRN PRN Reason: Constipation Prednisone (Prednisone) 20 mg PO WITHBREAKFAST [facility] Sodium Chloride (Saline Flush) 10 ml FLUSH ASDIRECTED PRN PRN Reason: Keep Vein Open Last Admin: 05/30/17 21:38 Dose: 10 ml Warfarin Sodium (Pharmacy To Dose - Warfarin) 1 dose .XX ASDIRECTED [facility] Discontinued Medications Acetaminophen (Tylenol) 650 mg PO NOW ONE Stop: 05/26/17 19:44 Last Admin: 05/26/17 19:53 Dose: 650 mg Levofloxacin/Dextrose 500 mg/ (Premix) 100 mls @ 100 mls/hr IV ONETIME ONE Stop: 05/26/17 22:16 Last Admin: 05/26/17 21:35 Dose: 100 mls/hr Sodium Chloride (Normal Saline) 1,000 mls @ 125 mls/hr IV ASDIRECTED [facility] Stop: 05/28/17 06:14 Last Infusion: 05/27/17 17:43 Dose: Infused Magnesium Sulfate 2 gm/ Premix 50 mls @ 25 mls/hr IV ONETIME ONE Stop: 05/27/17 10:15 Last Admin: 05/27/17 08:39 Dose: 25 mls/hr Vancomycin HCl 1.25 gm/ Sodium (Chloride) 250 mls @ 166.667 mls/hr IV Q24H [facility] Last Admin: 05/29/17 21:04 Dose: 166.667 mls/hr Vancomycin HCl (Pharmacy To Dose - Vancomycin) 1 dose .XX ASDIRECTED [facility] Warfarin Sodium (Coumadin) 2.5 mg PO Fr@1400 [place] Warfarin Sodium (Coumadin) 5 mg PO SuMoTuWeThSa@1400 [facility] Last Admin: 05/27/17 13:39 Dose: 5 mg Warfarin Sodium (Coumadin) 5 mg PO ONETIME ONE Stop: 05/28/17 14:01 Last Admin: 05/28/17 14:45 Dose: 5 mg Warfarin Sodium (Coumadin) 5 mg PO ONETIME ONE Stop: 05/29/17 14:01 Last Admin: 05/29/17 14:10 Dose: 5 mg Warfarin Sodium (Coumadin) 2.5 mg PO ONETIME ONE Stop: 05/30/17 14:01 Last Admin: 05/30/17 13:46 Dose: 2.5 mg - Exam General: Alert, Oriented HEENT: Pupils Equal, Pupils Reactive, EOMI, Mucous Membr. Moist/[place] Neck: Supple Lungs: Clear to Auscultation, Normal Respiratory Effort Cardiovascular: Regular Rate, Regular Rhythm GI/Abdominal Exam: Normal Bowel Sounds, Soft, Non-Tender, No Organomegaly, No Distention, No Abnormal Bruit, No Mass, Pelvis Stable (Male) Exam: No Hernia, Normal Inspection, Normal Prostate, Circumcised Back Exam: Normal Inspection, Full Range of Motion Extremities: Normal Inspection, Normal Range of Motion, Non-Tender, No Pedal Edema, Normal Capillary Refill Skin: Warm, Dry, Intact Wound/Incisions: Healing Well Neurological: No New Focal Deficit Psy/Mental Status: Alert, Normal Affect, Normal Mood EKG INTERPRETATION Rhythm: NSR [place]: Normal P-Wave: Present QRS: Normal ST-T: Normal QT: Normal - Problem List & Annotations (1) Pneumonia involving left lung SNOMED Code(s): 501231458 Code(s): J18.9 - PNEUMONIA, UNSPECIFIED ORGANISM Status: Acute Priority: High Current Visit: Yes Qualifiers: Pneumonia type: due to unspecified organism Lung location: unspecified part of lung Qualified Code(s): J18.9 - Pneumonia, unspecified organism (2) Pneumonia SNOMED Code(s): 912829865 Code(s): J18.9 - PNEUMONIA, UNSPECIFIED ORGANISM Status: Acute Priority: High Current Visit: Yes (3) Urinary tract infection SNOMED Code(s): 67108918 Code(s): N39.0 - URINARY TRACT INFECTION, SITE NOT SPECIFIED Status: Acute Current Visit: Yes (4) Weakness SNOMED Code(s): 25454840 Code(s): R53.1 - WEAKNESS Status: Acute Current Visit: Yes (5) Essential hypertension SNOMED Code(s): 12461808 Code(s): I10 - ESSENTIAL (PRIMARY) HYPERTENSION Status: Chronic Current Visit: Yes - Problem List Review Problem List Initiated/Reviewed/Updated: Yes - Plan Plan:: 87-year-old male with above past medical history presented with generalized weakness that progressed rapidly for the last 2 days without any other symptoms and his WBC 12.4, chest x-ray is concerning for left lingular pneumonia and urinalysis is consistent with UTI culture growing E. Coli, CT head was unremarkable for acute findings. Impression and Plan: #Pneumonia -WBC is normal now - will continue Levaquin IV - one set of blood culture reported gram-positive cocci in cluster ( staphylococcus Epidemics) -as patient has recently had aortic bio-valve placement. No murmur heard, will stop Vancomycin ( he has Bioprosthetic valve but the e.coli and staphepi both sensitive to Levofloxacin) -Encourage to use Flutter device and incentive salinometer #Urinary tract infection with E.Coli -Continue Levofloxacin IV -Urine culture grew more than 100,000 gram-negative rods ( E.Coli) #Generalized weakness Possibly from pneumonia and UTI PT/OT is following the patient #Acute on chronic kidney failure -Creatinine is back to baseline and stable -Restart Lasix and making good urine Avoid nephrotoxic medications #Hypomagnesemia -Resolved #Chronic congestive heart failure -Continue metoprolol succinate and lisinopril and Imdur #History of atrial fibrillation -Continue warfarin. Dosing is per pharmacy #Heart valvular disease. Status post valve replacement 1 months ago Patient does not know which valve was replaced. Continue warfarin #History of gout Patient had it in right thumb got improved. Tylenol as needed -ontinue Prednisone 20 mg daily #Essential hypertension Continue metoprolol succinate and lisinopril and Imdur #Chronic arthritis -Continue Tylenol #Anxiety Continue hydroxyzine as needed and oxazepam at bedtime to help with sleep CODE STATUS: Full DVT prophylaxis: She is on warfarin and Plavix so no need for additional pharmaceutical anticoagulation
[2017-05-31] MEDS: Clopidogrel 75 MG Tab PO SCH (08:48)
[2017-05-31] MEDS: Cyanocobalamin (Vitamin B12) 100 MCG Tab PO SCH (08:49)
[2017-05-31] MEDS: Metoprolol Succinate 50 MG Tab.ER PO SCH (08:50)
[2017-05-31] MEDS: predniSONE 20 MG Tab PO SCH (08:50)
[2017-05-31] MEDS: Furosemide 40 MG Tab PO SCH (08:50)
[2017-05-31] MEDS: Lisinopril 20 MG Tab PO SCH (08:50)
[2017-05-31] MEDS: OXAZEPAM 15 MG PO PRN ×3 (08:51→23:41)
[2017-05-31] MEDS: [UNRECOGNIZED DRUG - OTHER] PO PRN ×3 (08:51→23:41)
[2017-05-31] MEDS: Finasteride 5 MG Tab PO SCH (20:46)
[2017-05-31] MEDS: atorvaSTATin 20 MG Tab PO SCH (20:47)
[2017-05-31] MEDS: Levofloxacin/Dextrose 5%-Water 250 MG in Premix Bag 1 BAG IV SCH (20:48)
[2017-05-31] MEDS: Sodium Chloride 0.9% 10 ML Syringe FLUSH PRN (20:49)
[2017-05-31] MEDS: Acetaminophen 325 MG Tab PO PRN (23:39)
[2017-05-31] MEDS: hydrOXYzine HCl 10 MG Tab PO PRN (23:40)
[2017-06-01] MEDS: Pantoprazole 40 MG Tab.CR PO SCH (06:08)
[2017-06-01] MEDS: Isosorbide Mononitrate 30 MG Tab.ER PO SCH (06:08)
[2017-06-01] MEDS: Lisinopril 20 MG Tab PO SCH (09:18)
[2017-06-01] MEDS: predniSONE 20 MG Tab PO SCH (09:18)
[2017-06-01] MEDS: Furosemide 40 MG Tab PO SCH (09:18)
[2017-06-01] MEDS: Clopidogrel 75 MG Tab PO SCH (09:19)
[2017-06-01] MEDS: Metoprolol Succinate 50 MG Tab.ER PO SCH (09:19)
[2017-06-01] MEDS: Cyanocobalamin (Vitamin B12) 100 MCG Tab PO SCH (09:19)
[2017-06-01] MEDS: [UNRECOGNIZED DRUG - OTHER] PO PRN (10:45)
[2017-06-01] MEDS: OXAZEPAM 15 MG PO PRN (10:45)
--- NOTE | 2017-06-01 15:14 | PCM.DCSUM1 ---
Discharge Summary - Hospital Course Free Text/Narrative:: 87-year-old male with above past medical history presented with generalized weakness that progressed rapidly for the last 2 days without any other symptoms and his WBC 12.4, chest x-ray is concerning for left lingular pneumonia and urinalysis is consistent with UTI culture growing E. Coli, CT head was unremarkable for acute findings. He was admitted for pneumonia and UTI. He was managed with IV Levaquin. His symptoms improved significantly and he is being discharged to swing bed to continue PT/OT for strengthening. - Discharge Data Discharge Date: 06/01/17 Discharge Disposition: DC/Tfer W/I Hosp To [place] [id number] Condition: Fair - Discharge Diagnosis/Problem(s) (1) Pneumonia involving left lung SNOMED Code(s): 337722395 ICD Code: J18.9 - PNEUMONIA, UNSPECIFIED ORGANISM Status: Acute Priority : High Current Visit: Yes Qualifiers: Pneumonia type: due to unspecified organism Lung location: unspecified part of lung Qualified Code(s): J18.9 - Pneumonia, unspecified organism (2) Pneumonia SNOMED Code(s): 927835123 ICD Code: J18.9 - PNEUMONIA, UNSPECIFIED ORGANISM Status: Acute Priority : High Current Visit: Yes (3) Urinary tract infection SNOMED Code(s): 66643160 ICD Code: N39.0 - URINARY TRACT INFECTION, SITE NOT SPECIFIED Status: Acute Current Visit: Yes Qualifiers: Urinary tract infection type: acute cystitis (4) Weakness SNOMED Code(s): 03730948 ICD Code: R53.1 - WEAKNESS Status: Acute Current Visit: Yes (5) Essential hypertension SNOMED Code(s): 46149937 ICD Code: I10 - ESSENTIAL (PRIMARY) HYPERTENSION Status: Chronic Current Visit: Yes - Patient Instructions Diet: Heart Healthy Diet Fluid Restriction: 1500 mL Activity: As Tolerated Showering/Bathing: May Shower Notify Provider of: Increased Pain, Swelling and Redness, Nausea and/or Vomiting - Discharge Plan Home Medications: Home Meds Oxazepam 15 mg PO TID PRN 12/27/13 [History] Nitroglycerin 0.4 mg SL ASDIRECTED PRN 06/07/14 [History] Furosemide [Lasix] 40 mg PO DAILY 12/16/16 [History] Metoprolol Succinate [Toprol XL] 100 mg PO DAILY 12/16/16 [History] Acetaminophen 500 mg PO DAILY 05/26/17 [History] Clopidogrel [Plavix] 75 mg PO DAILY 05/26/17 [History] Cyanocobalamin (Vitamin B-12) [Vitamin B-12] 500 mcg PO DAILY 05/26/17 [History] Finasteride 5 mg PO DAILY 05/26/17 [History] Lisinopril 20 mg PO DAILY 05/26/17 [History] Pantoprazole 20 mg PO PCLUNCH 05/26/17 [History] atorvaSTATin [Lipitor] 20 mg PO BEDTIME 05/26/17 [History] hydrOXYzine HCl [Atarax] 25 mg PO Q8H PRN 05/26/17 [History] Warfarin [Coumadin] 2.5 mg PO .Wed05/27/17 [History] Warfarin [Coumadin] 5 mg PO .M,T,W,R,SA,MONTOYA 05/27/17 [History] Triamcinolone Acetonide [Triamcinolone Acetonide 0.1% Oint] 15 gm .XX BID [History] Forms: ED Department Discharge Referrals: Pedrito Leal NP [Primary Care Provider] - - Discharge Summary/Plan Comment DC Time >30 min.: Yes - General Info Functional Status: Reports: Pain Controlled - Review of Systems General: Reports: No Symptoms HEENT: Reports: No Symptoms Pulmonary: Reports: No Symptoms Cardiovascular: Reports: No Symptoms Gastrointestinal: Reports: No Symptoms Genitourinary: Reports: No Symptoms Musculoskeletal: Reports: No Symptoms Skin: Reports: No Symptoms Neurological: Reports: No Symptoms Psychiatric: Reports: No Symptoms - Patient Data Vitals - Most Recent: Last Vital Signs Temp 98.4 F 06/01/17 10:45 Pulse 61 06/01/17 10:45 Resp 20 06/01/17 10:45 BP 125/52 L 06/01/17 10:45 Pulse Ox 100 06/01/17 10:45 Weight - Most Recent: 160 lb 6.4 oz I&O - Last 24 hours: Intake & Output 06/01/17 06/01/17 06/01/17 06:59 14:59 22:59 Intake Total 750 1000 Output Total 750 950 Balance 0 50 Lab Results - Last 24 hrs: Laboratory Results - last 24 hr 06/01/17 Range/Units 05:58 PT 29.5 H (9.0-12.0) SEC INR 2.9 H (0.9-1.2) Med Orders - Current: Current Medications Acetaminophen (Tylenol) 650 mg PO Q4H PRN PRN Reason: Pain (Mild 1-3)/fever Last Admin: 05/31/17 23:39 Dose: 650 mg Atorvastatin Calcium (Lipitor) 20 mg PO BEDTIME [facility] Last Admin: 05/31/17 20:47 Dose: 20 mg Clopidogrel Bisulfate (Plavix) 75 mg PO DAILY [facility] Last Admin: 06/01/17 09:19 Dose: 75 mg Cyanocobalamin (Vitamin B12) 500 mcg PO DAILY [facility] Last Admin: 06/01/17 09:19 Dose: 500 mcg Docusate Sodium (Colace) 100 mg PO BID PRN PRN Reason: Constipation Finasteride (Proscar) 5 mg PO BEDTIME [facility] Last Admin: 05/31/17 20:46 Dose: 5 mg Furosemide (Lasix) 40 mg PO DAILY [facility] Last Admin: 06/01/17 09:18 Dose: 40 mg Hydroxyzine HCl (Atarax) 10 mg PO TID PRN PRN Reason: anxiety, itching Last Admin: 05/31/17 23:40 Dose: 10 mg Levofloxacin/Dextrose 250 mg/ (Premix) 50 mls @ 50 mls/hr IV Q24H [facility] Last Infusion: 05/31/17 22:06 Dose: Infused Isosorbide Mononitrate (Imdur) 30 mg PO ACBREAKFAST [facility] Last Admin: 06/01/17 06:08 Dose: 30 mg Lisinopril (Prinivil) 20 mg PO DAILY [facility] Last Admin: 06/01/17 09:18 Dose: 20 mg Magnesium Oxide (Magnesium Oxide) 250 mg PO BIDM [facility] Last Admin: 06/01/17 09:18 Dose: 250 mg Methyl Salicylate (Icy Hot Cream) 0 gm TOP QID PRN PRN Reason: Arthritis Last Admin: 05/28/17 21:01 Dose: 1 applic Metoprolol Succinate (Toprol Xl) 100 mg PO DAILY [facility] Last Admin: 06/01/17 09:19 Dose: 100 mg Nitroglycerin (Nitrostat) 0.4 mg SL ASDIRECTED PRN PRN Reason: Chest Pain Oxazepam 15 Mg- (Nonformulary Med) 15 mg PO TID PRN PRN Reason: Anxiety Last Admin: 06/01/17 10:45 Dose: 15 mg Ondansetron HCl (Zofran) 4 mg IVPUSH Q6H PRN PRN Reason: Nausea/Vomiting Pantoprazole Sodium (Protonix) 40 mg PO ACBREAKFAST [facility] Last Admin: 06/01/17 06:08 Dose: 40 mg Polyethylene Glycol (Miralax) 17 gm PO DAILY PRN PRN Reason: Constipation Prednisone (Prednisone) 20 mg PO WITHBREAKFAST [facility] Last Admin: 06/01/17 09:18 Dose: 20 mg Sodium Chloride (Saline Flush) 10 ml FLUSH ASDIRECTED PRN PRN Reason: Keep Vein Open Last Admin: 05/31/17 20:49 Dose: 10 ml Warfarin Sodium (Pharmacy To Dose - Warfarin) 1 dose .XX ASDIRECTED [facility] Discontinued Medications Acetaminophen (Tylenol) 650 mg PO NOW ONE Stop: 05/26/17 19:44 Last Admin: 05/26/17 19:53 Dose: 650 mg Levofloxacin/Dextrose 500 mg/ (Premix) 100 mls @ 100 mls/hr IV ONETIME ONE Stop: 05/26/17 22:16 Last Admin: 05/26/17 21:35 Dose: 100 mls/hr Sodium Chloride (Normal Saline) 1,000 mls @ 125 mls/hr IV ASDIRECTED [facility] Stop: 05/28/17 06:14 Last Infusion: 05/27/17 17:43 Dose: Infused Magnesium Sulfate 2 gm/ Premix 50 mls @ 25 mls/hr IV ONETIME ONE Stop: 05/27/17 10:15 Last Admin: 05/27/17 08:39 Dose: 25 mls/hr Vancomycin HCl 1.25 gm/ Sodium (Chloride) 250 mls @ 166.667 mls/hr IV Q24H [facility] Last Admin: 05/29/17 21:04 Dose: 166.667 mls/hr Vancomycin HCl (Pharmacy To Dose - Vancomycin) 1 dose .XX ASDIRECTED [facility] Warfarin Sodium (Coumadin) 2.5 mg PO Fr@1400 [facility] Warfarin Sodium (Coumadin) 5 mg PO SuMoTuWeThSa@1400 [facility] Last Admin: 05/27/17 13:39 Dose: 5 mg Warfarin Sodium (Coumadin) 5 mg PO ONETIME ONE Stop: 05/28/17 14:01 Last Admin: 05/28/17 14:45 Dose: 5 mg Warfarin Sodium (Coumadin) 5 mg PO ONETIME ONE Stop: 05/29/17 14:01 Last Admin: 05/29/17 14:10 Dose: 5 mg Warfarin Sodium (Coumadin) 2.5 mg PO ONETIME ONE Stop: 05/30/17 14:01 Last Admin: 05/30/17 13:46 Dose: 2.5 mg Warfarin Sodium (Coumadin) 1 mg PO ONETIME ONE Stop: 05/31/17 14:01 Last Admin: 05/31/17 14:44 Dose: 1 mg Warfarin Sodium (Coumadin) 0.75 mg PO ONETIME ONE Stop: 06/01/17 14:01 Last Admin: 06/01/17 14:38 Dose: 0.75 mg - Exam General: Reports: Alert, Oriented HEENT: Reports: Pupils Equal, Pupils Reactive, EOMI, Mucous Membr. Moist/Gays Neck: Reports: Supple Lungs: Reports: Clear to Auscultation, Normal Respiratory Effort Cardiovascular: Reports: Regular Rate, Regular Rhythm GI/Abdominal Exam: Normal Bowel Sounds, Soft, Non-Tender, No Organomegaly, No Distention, No Abnormal Bruit, No Mass, Pelvis Stable (Male) Exam: No Hernia, Normal Inspection, Normal Prostate, Circumcised Rectal (Males) Exam: Normal Exam, Normal Rectal Tone, Prostate Normal Back Exam: Reports: Normal Inspection, Full Range of Motion Extremities: Normal Inspection, Normal Range of Motion, Non-Tender, No Pedal Edema, Normal Capillary Refill Skin: Reports: Warm, Dry, Intact Wound/Incisions: Reports: Healing Well Neurological: Reports: No New Focal Deficit Psy/Mental Status: Reports: Alert, Normal Affect, Normal Mood *Q Meaningful Use (DIS) - VTE *Q VTE Criteria *Q: - Stroke *Q Stroke Criteria *Q: - AMI *Q AMI Criteria *Q:
[2017-06-01 16:03] VITALS: BP 93/47
== END 2017-06-01 14:21 | disposition swing bed (61) | DRG 194 ==
LOC: DL.ED 17:15 → DL.MS 21:41 → UNDOADMIN 21:41 → DL.MS 22:15
PROVIDERS: ADMIT Family Medicine; ATTEND Family Medicine
DX: J18.9 Pneumonia, unspecified organism (principal); N17.9 Acute kidney failure, unspecified; Z95.2 Presence of prosthetic heart valve; I25.810 Atherosclerosis of coronary artery bypass graft(s) without angina pectoris; I10 Essential (primary) hypertension; I13.0 Hypertensive heart and chronic kidney disease with heart failure and stage 1 through stage 4 chronic kidney disease, or unspecified chronic kidney disease; T83.511A Infection and inflammatory reaction due to indwelling urethral catheter, initial encounter; F41.9 Anxiety disorder, unspecified; I50.9 Heart failure, unspecified; Z95.5 Presence of coronary angioplasty implant and graft; R74.8 Abnormal levels of other serum enzymes; R53.1 Weakness; N18.9 Chronic kidney disease, unspecified; I48.91 Unspecified atrial fibrillation; E78.00 Pure hypercholesterolemia, unspecified; M19.90 Unspecified osteoarthritis, unspecified site; Z79.02 Long term (current) use of antithrombotics/antiplatelets; M10.9 Gout, unspecified; K21.9 Gastro-esophageal reflux disease without esophagitis; R33.9 Retention of urine, unspecified; Z93.6 Other artificial openings of urinary tract status; E83.42 Hypomagnesemia; B96.20 Unspecified Escherichia coli [E. coli] as the cause of diseases classified elsewhere; Z88.8 Allergy status to other drugs, medicaments and biological substances; Z79.01 Long term (current) use of anticoagulants; Z79.82 Long term (current) use of aspirin; Z79.899 Other long term (current) drug therapy
CPT/HCPCS: 36415; 70450; 71045; 80053; 81001; 83605; 83880; 84484; 84550; 85025; 85610; 87040 ×2; 87077; 87086; 87088 ×2; 87186 ×3; 93005; 93010; 99284; 99285; A9270; J1956; 51702; 71046; 80048; 83735; 87205; 97110-GO; 97110-GP; 97116-GP; 97161-GP; 97166-GO; 97530-GO; J3370; J3475; J7030; J7050

== ENCOUNTER 2017-06-01 10:13 | Inpatient (IN) | payer MEDICARE ==
[2017-06-01] MEDS ORDERED: OXAZEPAM 15 MG PO PRN ×2 (14:17→14:21)
[2017-06-01] MEDS ORDERED: Sodium Chloride 0.9% 10 ML Syringe FLUSH PRN ×2 (14:17→14:21)
[2017-06-01] MEDS ORDERED: Docusate Sodium 100 MG Cap PO PRN ×2 (14:17→14:21)
[2017-06-01] MEDS ORDERED: Menthol/Methyl Salicylate 85 GM Tube TOP PRN ×2 (14:17→14:21)
[2017-06-01] MEDS ORDERED: hydrOXYzine HCl 10 MG Tab PO PRN ×2 (14:17→14:21)
[2017-06-01] MEDS ORDERED: Ondansetron 4 MG/2 ML SDV IVPUSH PRN ×2 (14:17→14:21)
[2017-06-01] MEDS ORDERED: Polyethylene Glycol 3350 Powder 17 GM Packet PO PRN ×2 (14:17→14:21)
[2017-06-01] MEDS ORDERED: Acetaminophen 325 MG Tab PO PRN ×2 (14:17→14:21)
[2017-06-01] MEDS ORDERED: Nitroglycerin 0.4 MG Tab.SL SL PRN ×3 (14:17→14:25)
--- NOTE | 2017-06-01 15:16 | PCM.HP ---
H&P History of Present Illness - General Date of Service: 06/01/17 Admit Problem/Dx: Admitted with : Urinary tract infection and pneumonia Source of Information: Patient History Limitations: Reports: No Limitations - History of Present Illness Initial Comments - Free Text/Narative: 87-year-old male with above past medical history presented with generalized weakness that progressed rapidly over 2 days without any other symptoms. Chest x -ray on admission was concerning for left lingular pneumonia and urinalysis was consistent with UTI. Urine culture was positive for E. Coli. Ct brain was negative. He was managed with IV antibiotics with significant improvement. He is discharged to swing bed for OT/PT for strengthening. He denies any other symtoms today. Onset of Symptoms: Reports: Gradual. Denies: Unknown/Unsure Improves with: Reports: None Worsens with: Reports: None Associated Symptoms: Reports: No Other Symptoms Right Knee Pain Score (Numeric/FACES): 4 - Related Data Allergies/Adverse Reactions: Allergies Allergy/AdvReac Type Severity Reaction Status Date / Time hydrochlorothiazide Allergy Fainting Verified 06/01/17 20:01 Home Medications: Home Meds Oxazepam 15 mg PO TID PRN 12/27/13 [History] Nitroglycerin 0.4 mg SL ASDIRECTED PRN 06/07/14 [History] Furosemide [Lasix] 40 mg PO DAILY 12/16/16 [History] Metoprolol Succinate [Toprol XL] 100 mg PO DAILY 12/16/16 [History] Acetaminophen 500 mg PO DAILY 05/26/17 [History] Clopidogrel [Plavix] 75 mg PO DAILY 05/26/17 [History] Cyanocobalamin (Vitamin B-12) [Vitamin B-12] 500 mcg PO DAILY 05/26/17 [History] Finasteride 5 mg PO DAILY 05/26/17 [History] Lisinopril 20 mg PO DAILY 05/26/17 [History] Pantoprazole 20 mg PO PCLUNCH 05/26/17 [History] atorvaSTATin [Lipitor] 20 mg PO BEDTIME 05/26/17 [History] hydrOXYzine HCl [Atarax] 25 mg PO Q8H PRN 05/26/17 [History] Warfarin [Coumadin] 2.5 mg PO .FRI 05/27/17 [History] Warfarin [Coumadin] 5 mg PO .M,T,W,R,SA,MONTOYA 05/27/17 [History] Triamcinolone Acetonide [Triamcinolone Acetonide 0.1% Oint] 1 gm TOP BID PRN [History] Past Medical History HEENT History: Reports: Hard of Hearing, Impaired Vision Cardiovascular History: Reports: Afib, CAD, High Cholesterol, Hypertension Respiratory History: Reports: None Gastrointestinal History: Reports: None, GERD Genitourinary History: Reports: Other (See Below) Other Genitourinary History: urinary retention, Pt has indwelling catheter for the last 2 months, Musculoskeletal History: Reports: Arthritis, Gout Neurological History: Reports: None Psychiatric History: Reports: Anxiety Endocrine/Metabolic History: Reports: None Hematologic History: Reports: None Immunologic History: Reports: None Oncologic (Cancer) History: Reports: None Dermatologic History: Reports: Other (See Below) Other Dermatologic History: sores to top of head - Infectious Disease History Infectious Disease History: Reports: Chicken Pox, Measles, Mumps - Past Surgical History Head Surgeries/Procedures: Reports: None Cardiovascular Surgical History: Reports: Coronary Artery Bypass, Coronary Artery Stent, Valve Replacement Social & Family History - Family History Family Medical History: Noncontributory - Tobacco Use Smoking Status *Q: Never Smoker Second Hand Smoke Exposure: No - Caffeine Use Caffeine Use: Reports: Coffee, Soda, Tea Other Caffeine Use: 24 oz daily - Alcohol Use Days Per Week of Alcohol Use: 7 Number of Drinks Per Day: 1 Total Drinks Per Week: 7 - Recreational Drug Use Recreational Drug Use: No - Living Situation & Occupation Living situation: Reports: , with Spouse Occupation: Retired H&P Review of Systems - Review of Systems: Review Of Systems: See Below General: Reports: No Symptoms HEENT: Reports: No Symptoms Pulmonary: Reports: No Symptoms Cardiovascular: Reports: No Symptoms Gastrointestinal: Reports: No Symptoms Genitourinary: Reports: No Symptoms Musculoskeletal: Reports: No Symptoms Skin: Reports: No Symptoms Psychiatric: Reports: No Symptoms Neurological: Reports: No Symptoms Hematologic/Lymphatic: Reports: No Symptoms Immunologic: Reports: No Symptoms Exam - Exam Exam: See Below - Vital Signs Vital Signs: Last Vital Signs Temp 98.4 F 06/01/17 10:45 Pulse 61 06/01/17 10:45 Resp 20 06/01/17 10:45 BP 125/52 L 06/01/17 10:45 Pulse Ox 100 06/01/17 10:45 Weight: 160 lb 6.4 oz - Exam General: Alert, Oriented, 4 HEENT: PERRLA, Hearing Intact, Mucosa Moist & Crane, Nares Patent, Normal Nasal Septum, Posterior Pharynx Clear, Conjunctiva Clear, EOMI, EACs Clear, TMs Clear Neck: Supple, Trachea Midline, 2 Lungs: Clear to Auscultation, Normal Respiratory Effort Cardiovascular: Regular Rate, Regular Rhythm GI/Abdominal Exam: Normal Bowel Sounds, Soft, Non-Tender, No Organomegaly, No Distention, No Abnormal Bruit, No Mass, Pelvis Stable (Male) Exam: No Hernia, Normal Inspection, Normal Prostate, Circumcised Rectal (Males) Exam: Normal Exam, Normal Rectal Tone, Prostate Normal Back Exam: Normal Inspection, Full Range of Motion, NT Extremities: Normal Inspection, Normal Range of Motion, Non-Tender, No Pedal Edema, Normal Capillary Refill Skin: Warm, Dry, Intact Neurological: Cranial Nerves Intact, Reflexes Equal Bilateral Neuro Extensive - Mental Status: Alert, Oriented x3, Normal Mood/Affect, Normal Cognition Neuro Extensive - Motor, Sensory, Reflexes: CN II-XII Intact, Normal Gait, Normal Reflexes Psychiatric: Alert, Normal Affect, Normal Mood - Patient Data Lab Results Last 24 hrs: Laboratory Results - last 24 hr 06/01/17 Range/Units 05:58 PT 29.5 H (9.0-12.0) SEC INR 2.9 H (0.9-1.2) *Q Meaningful Use (ADM) - VTE *Q VTE Criteria *Q: - Stroke *Q Stroke Criteria *Q: - AMI *Q AMI Criteria *Q: - Problem List (1) Pneumonia SNOMED Code(s): 993233500 ICD Code: J18.9 - PNEUMONIA, UNSPECIFIED ORGANISM Status: Resolved Priority: High Current Visit: No (2) Essential hypertension SNOMED Code(s): 01218607 ICD Code: I10 - ESSENTIAL (PRIMARY) HYPERTENSION Status: Chronic Current Visit: No (3) Urinary tract infection SNOMED Code(s): 33378177 ICD Code: N39.0 - URINARY TRACT INFECTION, SITE NOT SPECIFIED Status: Acute Current Visit: No Qualifiers: Urinary tract infection type: acute cystitis (4) Pneumonia involving left lung SNOMED Code(s): 295999449 ICD Code: J18.9 - PNEUMONIA, UNSPECIFIED ORGANISM Status: Acute Priority : High Current Visit: No Qualifiers: Pneumonia type: due to unspecified organism Lung location: unspecified part of lung Qualified Code(s): J18.9 - Pneumonia, unspecified organism (5) Weakness SNOMED Code(s): 95667881 ICD Code: R53.1 - WEAKNESS Status: Acute Current Visit: No Problem List Initiated/Reviewed/Updated: Yes Orders Last 24hrs: Active Orders 24 hr Category Date Time Status Ready for Discharge [RC] PER UNIT ROUTINE Care 06/01/17 13:57 Active INR,PT,PROTHROMBIN TIME [COAG] DAILY Lab 06/02/17 06:00 Ordered INR,PT,PROTHROMBIN TIME [COAG] DAILY Lab 06/03/17 06:00 Ordered INR,PT,PROTHROMBIN TIME [COAG] DAILY Lab 06/04/17 06:00 Ordered Medication Orders Acetaminophen (Tylenol) 650 mg PO Q4H PRN PRN Reason: Pain (Mild 1-3)/fever Last Admin: 05/31/17 23:39 Dose: 650 mg Admin: 05/30/17 21:58 Dose: 650 mg Admin: 05/30/17 01:37 Dose: 650 mg Admin: 05/29/17 00:28 Dose: 650 mg Admin: 05/28/17 10:15 Dose: 650 mg Admin: 05/27/17 20:58 Dose: 650 mg Admin: 05/27/17 12:15 Dose: 650 mg Atorvastatin Calcium (Lipitor) 20 mg PO BEDTIME [facility] Last Admin: 05/31/17 20:47 Dose: 20 mg Admin: 05/30/17 20:44 Dose: 20 mg Admin: 05/29/17 20:56 Dose: 20 mg Admin: 05/28/17 21:01 Dose: 20 mg Admin: 05/27/17 20:54 Dose: 20 mg Admin: 05/26/17 23:22 Dose: 20 mg Clopidogrel Bisulfate (Plavix) 75 mg PO DAILY [facility] Last Admin: 06/01/17 09:19 Dose: 75 mg Admin: 05/31/17 08:48 Dose: 75 mg Admin: 05/30/17 09:27 Dose: 75 mg Admin: 05/29/17 09:23 Dose: 75 mg Admin: 05/28/17 10:14 Dose: 75 mg Admin: 05/27/17 08:37 Dose: 75 mg Cyanocobalamin (Vitamin B12) 500 mcg PO DAILY [facility] Last Admin: 06/01/17 09:19 Dose: 500 mcg Admin: 05/31/17 08:49 Dose: 500 mcg Admin: 05/30/17 09:28 Dose: 500 mcg Admin: 05/29/17 09:22 Dose: 500 mcg Admin: 05/28/17 10:16 Dose: 500 mcg Admin: 05/27/17 08:38 Dose: 500 mcg Docusate Sodium (Colace) 100 mg PO BID PRN PRN Reason: Constipation Finasteride (Proscar) 5 mg PO BEDTIME [facility] Last Admin: 05/31/17 20:46 Dose: 5 mg Admin: 05/30/17 20:45 Dose: 5 mg Admin: 05/29/17 20:57 Dose: 5 mg Admin: 05/28/17 21:00 Dose: 5 mg Admin: 05/27/17 20:53 Dose: 5 mg Admin: 05/26/17 23:22 Dose: 5 mg Furosemide (Lasix) 40 mg PO DAILY [facility] Last Admin: 06/01/17 09:18 Dose: 40 mg Admin: 05/31/17 08:50 Dose: 40 mg Admin: 05/30/17 09:27 Dose: 40 mg Admin: 05/29/17 09:22 Dose: 40 mg Admin: 05/28/17 10:14 Dose: 40 mg Hydroxyzine HCl (Atarax) 10 mg PO TID PRN PRN Reason: anxiety, itching Last Admin: 05/31/17 23:40 Dose: 10 mg Admin: 05/30/17 13:46 Dose: 10 mg Admin: 05/27/17 20:59 Dose: 10 mg Admin: 05/26/17 23:22 Dose: 10 mg Levofloxacin/Dextrose 250 mg/ (Premix) 50 mls @ 50 mls/hr IV Q24H [facility] Last Infusion: 05/31/17 22:06 Dose: 50 mls/hr Admin: 05/31/17 20:48 Dose: 50 mls/hr Infusion: 05/30/17 21:39 Dose: 50 mls/hr Admin: 05/30/17 20:39 Dose: 50 mls/hr Infusion: 05/29/17 21:02 Dose: 50 mls/hr Admin: 05/29/17 20:00 Dose: 50 mls/hr Infusion: 05/28/17 23:31 Dose: 50 mls/hr Admin: 05/28/17 22:31 Dose: 50 mls/hr Infusion: 05/27/17 23:40 Dose: 50 mls/hr Admin: 05/27/17 22:40 Dose: 50 mls/hr Isosorbide Mononitrate (Imdur) 30 mg PO ACBREAKFAST [facility] Last Admin: 06/01/17 06:08 Dose: 30 mg Admin: 05/31/17 05:36 Dose: 30 mg Admin: 05/30/17 05:50 Dose: 30 mg Admin: 05/29/17 06:17 Dose: 30 mg Admin: 05/28/17 05:21 Dose: 30 mg Admin: 05/27/17 05:33 Dose: 30 mg Lisinopril (Prinivil) 20 mg PO DAILY [facility] Last Admin: 06/01/17 09:18 Dose: 20 mg Admin: 05/31/17 08:50 Dose: 20 mg Admin: 05/30/17 09:27 Dose: 20 mg Admin: 05/29/17 09:22 Dose: 20 mg Admin: 05/28/17 10:15 Dose: 20 mg Admin: 05/27/17 08:37 Dose: 20 mg Magnesium Oxide (Magnesium Oxide) 250 mg PO BIDM [facility] Last Admin: 06/01/17 09:18 Dose: 250 mg Admin: 05/31/17 17:25 Dose: 250 mg Admin: 05/31/17 08:49 Dose: 250 mg Admin: 05/30/17 17:26 Dose: 250 mg Admin: 05/30/17 09:27 Dose: 250 mg Admin: 05/29/17 17:04 Dose: 250 mg Admin: 05/29/17 09:22 Dose: 250 mg Admin: 05/28/17 17:55 Dose: 250 mg Admin: 05/28/17 10:15 Dose: 250 mg Admin: 05/27/17 17:09 Dose: 250 mg Methyl Salicylate (Icy Hot Cream) 0 gm TOP QID PRN PRN Reason: Arthritis Last Admin: 05/28/17 21:01 Dose: 1 applic Admin: 05/28/17 16:01 Dose: 1 applic Metoprolol Succinate (Toprol Xl) 100 mg PO DAILY [facility] Last Admin: 06/01/17 09:19 Dose: 100 mg Admin: 05/31/17 08:50 Dose: 100 mg Admin: 05/30/17 09:27 Dose: 100 mg Admin: 05/29/17 09:22 Dose: 100 mg Admin: 05/28/17 10:14 Dose: 100 mg Admin: 05/27/17 08:38 Dose: 100 mg Nitroglycerin (Nitrostat) 0.4 mg SL ASDIRECTED PRN PRN Reason: Chest Pain Oxazepam 15 Mg- (Nonformulary Med) 15 mg PO TID PRN PRN Reason: Anxiety Last Admin: 06/01/17 10:45 Dose: 15 mg Admin: 05/31/17 23:41 Dose: 15 mg Admin: 05/31/17 17:15 Dose: 15 mg Admin: 05/31/17 08:51 Dose: 15 mg Admin: 05/30/17 21:57 Dose: 15 mg Admin: 05/30/17 13:49 Dose: 15 mg Admin: 05/30/17 05:49 Dose: 15 mg Admin: 05/29/17 21:42 Dose: 15 mg Admin: 05/29/17 15:20 Dose: 15 mg Admin: 05/29/17 06:22 Dose: 15 mg Admin: 05/28/17 21:02 Dose: 15 mg Admin: 05/28/17 10:13 Dose: 15 mg Admin: 05/27/17 21:05 Dose: 15 mg Admin: 05/27/17 13:38 Dose: 15 mg Ondansetron HCl (Zofran) 4 mg IVPUSH Q6H PRN PRN Reason: Nausea/Vomiting Pantoprazole Sodium (Protonix) 40 mg PO ACBREAKFAST [facility] Last Admin: 06/01/17 06:08 Dose: 40 mg Admin: 05/31/17 05:36 Dose: 40 mg Admin: 05/30/17 05:50 Dose: 40 mg Admin: 05/29/17 06:17 Dose: 40 mg Admin: 05/28/17 05:21 Dose: 40 mg Admin: 05/27/17 05:33 Dose: 40 mg Polyethylene Glycol (Miralax) 17 gm PO DAILY PRN PRN Reason: Constipation Prednisone (Prednisone) 20 mg PO WITHBREAKFAST [facility] Last Admin: 06/01/17 09:18 Dose: 20 mg Admin: 05/31/17 08:50 Dose: 20 mg Sodium Chloride (Saline Flush) 10 ml FLUSH ASDIRECTED PRN PRN Reason: Keep Vein Open Last Admin: 05/31/17 20:49 Dose: 10 ml Admin: 05/30/17 21:38 Dose: 10 ml Admin: 05/30/17 20:38 Dose: 10 ml Admin: 05/28/17 22:33 Dose: 10 ml Admin: 05/28/17 20:54 Dose: 10 ml Admin: 05/28/17 10:18 Dose: 10 ml Admin: 05/27/17 17:41 Dose: 10 ml Warfarin Sodium (Pharmacy To Dose - Warfarin) 1 dose .XX ASDIRECTED [facility] Assessment/Plan Comment:: 87-year-old male with above past medical history presented with generalized weakness that progressed rapidly for the last 2 days without any other symptoms chest x-ray was concerning for left lingular pneumonia and urinalysis is consistent with UTI culture growing E. Coli. Ct brain was negative. He was managed with IV antibiotics with significant improvement. He was discharged to [facility] bed for OT/PT for strengthening. Impression and Plan: #Pneumonia POA -Improved -continue Levaquin PO #E.Coli UTI due to indwelling catheter -Continue Levaquin as above #Generalized weakness Possibly from pneumonia and UTI Continue PT/OT #Acute on chronic kidney failure -Resolved #Chronic congestive heart failure -Continue metoprolol succinate and lisinopril and Imdur #History of atrial fibrillation -Continue warfarin. Dosing is per pharmacy #Heart valvular disease. Status post valve replacement 1 months ago Patient does not know which valve was replaced. Continue warfarin #History of gout Patient had it in right thumb got improved. Tylenol as needed -continue Prednisone 20 mg daily #Essential hypertension Continue metoprolol succinate and lisinopril and Imdur #Chronic arthritis -Continue Tylenol #Anxiety Continue hydroxyzine as needed and oxazepam at bedtime to help with sleep CODE STATUS: Full DVT prophylaxis: He is on warfarin and Plavix so no need for additional pharmaceutical anticoagulation
[2017-06-01] MEDS: Levofloxacin 500 MG Tab PO SCH (17:50)
[2017-06-01] MEDS: OXAZEPAM 15 MG PO PRN (19:49)
[2017-06-01] MEDS ORDERED: Finasteride 5 MG Tab PO SCH ×2 (21:00)
[2017-06-01] MEDS ORDERED: atorvaSTATin 20 MG Tab PO SCH ×2 (21:00)
[2017-06-01] MEDS: atorvaSTATin 20 MG Tab PO SCH (21:07)
[2017-06-01] MEDS: Triamcinolone Acetonide 0.1% Oint 15 GM Tube TOP SCH (21:10)
[2017-06-02] MEDS: hydrOXYzine HCl 25 MG Tab PO PRN ×2 (00:02→19:23)
[2017-06-02] MEDS: Acetaminophen 325 MG Tab PO PRN (03:09)
[2017-06-02] MEDS: OXAZEPAM 15 MG PO PRN ×3 (04:05→20:30)
[2017-06-02] MEDS ORDERED: Pantoprazole 40 MG Tab.CR PO SCH (06:00)
[2017-06-02] MEDS ORDERED: Isosorbide Mononitrate 30 MG Tab.ER PO SCH (06:00)
[2017-06-02] MEDS: Pantoprazole 40 MG Tab.CR PO SCH (06:30)
[2017-06-02] MEDS: Isosorbide Mononitrate 30 MG Tab.ER PO SCH (06:33)
[2017-06-02] MEDS ORDERED: predniSONE 20 MG Tab PO SCH (08:00)
[2017-06-02] MEDS: Finasteride 5 MG Tab PO SCH (08:42)
[2017-06-02] MEDS: Clopidogrel 75 MG Tab PO SCH (08:42)
[2017-06-02] MEDS: Lisinopril 20 MG Tab PO SCH (08:42)
[2017-06-02] MEDS: Furosemide 40 MG Tab PO SCH (08:42)
[2017-06-02] MEDS: Metoprolol Succinate 50 MG Tab.ER PO SCH (08:43)
[2017-06-02] MEDS: Cyanocobalamin (Vitamin B12) 100 MCG Tab PO SCH (08:43)
[2017-06-02] MEDS: predniSONE 20 MG Tab PO SCH (08:43)
[2017-06-02] MEDS: Triamcinolone Acetonide 0.1% Oint 15 GM Tube TOP SCH ×2 (08:45→20:43)
[2017-06-02] MEDS ORDERED: Lisinopril 20 MG Tab PO SCH ×2 (09:00)
[2017-06-02] MEDS ORDERED: Cyanocobalamin (Vitamin B12) 100 MCG Tab PO SCH ×2 (09:00)
[2017-06-02] MEDS ORDERED: Furosemide 40 MG Tab PO SCH ×2 (09:00)
[2017-06-02] MEDS ORDERED: Metoprolol Succinate 25 MG Tab.ER PO SCH (09:00)
[2017-06-02] MEDS ORDERED: Clopidogrel 75 MG Tab PO SCH ×2 (09:00)
[2017-06-02] MEDS ORDERED: Acetaminophen 500 MG Tab PO SCH (09:00)
[2017-06-02] MEDS ORDERED: Metoprolol Succinate 50 MG Tab.ER PO SCH (09:00)
[2017-06-02] MEDS ORDERED: PANTOPRAZOLE 20 MG PO SCH (12:30)
[2017-06-02] MEDS: Levofloxacin 500 MG Tab PO SCH (17:29)
[2017-06-02] MEDS: atorvaSTATin 20 MG Tab PO SCH (20:40)
[2017-06-03] MEDS: OXAZEPAM 15 MG PO PRN ×3 (04:51→21:23)
[2017-06-03] MEDS: Pantoprazole 40 MG Tab.CR PO SCH (05:06)
[2017-06-03] MEDS: Isosorbide Mononitrate 30 MG Tab.ER PO SCH (05:06)
[2017-06-03] MEDS: Finasteride 5 MG Tab PO SCH (08:37)
[2017-06-03] MEDS: Cyanocobalamin (Vitamin B12) 100 MCG Tab PO SCH (08:39)
[2017-06-03] MEDS: Clopidogrel 75 MG Tab PO SCH (08:40)
[2017-06-03] MEDS: Lisinopril 20 MG Tab PO SCH (08:40)
[2017-06-03] MEDS: Furosemide 40 MG Tab PO SCH (08:41)
[2017-06-03] MEDS: Metoprolol Succinate 50 MG Tab.ER PO SCH (08:42)
[2017-06-03] MEDS: predniSONE 20 MG Tab PO SCH (08:44)
[2017-06-03] MEDS ORDERED: Bismuth Subsalicylate 262 MG Tab.Chew PO PRN (09:40)
[2017-06-03] MEDS: Triamcinolone Acetonide 0.1% Oint 15 GM Tube TOP SCH ×2 (10:05→21:24)
[2017-06-03] MEDS ORDERED: Warfarin 5 MG Tab PO ONE (14:00)
[2017-06-03] MEDS: Levofloxacin 500 MG Tab PO SCH (17:13)
[2017-06-03] MEDS: atorvaSTATin 20 MG Tab PO SCH (21:23)
[2017-06-04] MEDS: OXAZEPAM 15 MG PO PRN ×2 (03:25→22:06)
[2017-06-04] MEDS: Pantoprazole 40 MG Tab.CR PO SCH (05:40)
[2017-06-04] MEDS: Isosorbide Mononitrate 30 MG Tab.ER PO SCH (05:40)
[2017-06-04] MEDS: Cyanocobalamin (Vitamin B12) 100 MCG Tab PO SCH (08:42)
[2017-06-04] MEDS: Clopidogrel 75 MG Tab PO SCH (08:42)
[2017-06-04] MEDS: Furosemide 40 MG Tab PO SCH (08:42)
[2017-06-04] MEDS: predniSONE 20 MG Tab PO SCH (08:42)
[2017-06-04] MEDS: Metoprolol Succinate 50 MG Tab.ER PO SCH (08:43)
[2017-06-04] MEDS: Finasteride 5 MG Tab PO SCH (08:43)
[2017-06-04] MEDS: Lisinopril 20 MG Tab PO SCH (08:43)
[2017-06-04] MEDS: Triamcinolone Acetonide 0.1% Oint 15 GM Tube TOP SCH ×2 (08:46→20:33)
[2017-06-04] MEDS: hydrOXYzine HCl 25 MG Tab PO PRN ×2 (13:24→21:31)
[2017-06-04] MEDS ORDERED: Warfarin 5 MG Tab PO ONE (14:00)
[2017-06-04] MEDS: Levofloxacin 500 MG Tab PO SCH (17:28)
[2017-06-04] MEDS: Acetaminophen 325 MG Tab PO PRN (19:40)
[2017-06-04] MEDS: atorvaSTATin 20 MG Tab PO SCH (20:31)
[2017-06-05] MEDS: Isosorbide Mononitrate 30 MG Tab.ER PO SCH (06:16)
[2017-06-05] MEDS: Pantoprazole 40 MG Tab.CR PO SCH (06:16)
[2017-06-05] MEDS: Cyanocobalamin (Vitamin B12) 100 MCG Tab PO SCH (08:29)
[2017-06-05] MEDS: Furosemide 40 MG Tab PO SCH (08:30)
[2017-06-05] MEDS: Acetaminophen 325 MG Tab PO PRN ×2 (08:30→20:52)
[2017-06-05] MEDS: Lisinopril 20 MG Tab PO SCH (08:30)
[2017-06-05] MEDS: Finasteride 5 MG Tab PO SCH (08:32)
[2017-06-05] MEDS: Metoprolol Succinate 50 MG Tab.ER PO SCH (08:32)
[2017-06-05] MEDS: predniSONE 20 MG Tab PO SCH (08:32)
[2017-06-05] MEDS: Clopidogrel 75 MG Tab PO SCH (08:32)
[2017-06-05] MEDS: hydrOXYzine HCl 25 MG Tab PO PRN ×2 (08:32→20:54)
[2017-06-05] MEDS: Triamcinolone Acetonide 0.1% Oint 15 GM Tube TOP SCH ×2 (08:35→20:50)
[2017-06-05] MEDS: OXAZEPAM 15 MG PO PRN ×2 (09:53→21:33)
[2017-06-05] MEDS ORDERED: Warfarin 2.5 MG Tab PO ONE (14:00)
[2017-06-05] MEDS: Levofloxacin 500 MG Tab PO SCH (17:17)
[2017-06-05] MEDS: atorvaSTATin 20 MG Tab PO SCH (20:53)
[2017-06-06] MEDS: OXAZEPAM 15 MG PO PRN ×3 (06:00→22:01)
[2017-06-06] MEDS: Isosorbide Mononitrate 30 MG Tab.ER PO SCH (06:01)
[2017-06-06] MEDS: Pantoprazole 40 MG Tab.CR PO SCH (06:02)
[2017-06-06] MEDS: Cyanocobalamin (Vitamin B12) 100 MCG Tab PO SCH (08:30)
[2017-06-06] MEDS: Furosemide 40 MG Tab PO SCH (08:31)
[2017-06-06] MEDS: Clopidogrel 75 MG Tab PO SCH (08:31)
[2017-06-06] MEDS: Finasteride 5 MG Tab PO SCH (08:32)
[2017-06-06] MEDS: predniSONE 20 MG Tab PO SCH (08:32)
[2017-06-06] MEDS: Triamcinolone Acetonide 0.1% Oint 15 GM Tube TOP SCH ×2 (08:33→21:09)
[2017-06-06] MEDS: Lisinopril 20 MG Tab PO SCH (08:36)
[2017-06-06] MEDS: Metoprolol Succinate 50 MG Tab.ER PO SCH (08:37)
[2017-06-06] MEDS ORDERED: Warfarin 2.5 MG Tab PO ONE (14:00)
[2017-06-06] MEDS: atorvaSTATin 20 MG Tab PO SCH (21:05)
[2017-06-06] MEDS: Acetaminophen 325 MG Tab PO PRN (21:16)
[2017-06-07] MEDS: Isosorbide Mononitrate 30 MG Tab.ER PO SCH (06:05)
[2017-06-07] MEDS: Pantoprazole 40 MG Tab.CR PO SCH (06:05)
[2017-06-07] MEDS: OXAZEPAM 15 MG PO PRN ×3 (06:06→21:59)
[2017-06-07] MEDS: Triamcinolone Acetonide 0.1% Oint 15 GM Tube TOP SCH ×2 (09:00→21:59)
[2017-06-07] MEDS: predniSONE 20 MG Tab PO SCH (09:10)
[2017-06-07] MEDS: Clopidogrel 75 MG Tab PO SCH (09:10)
[2017-06-07] MEDS: Furosemide 40 MG Tab PO SCH (09:10)
[2017-06-07] MEDS: Metoprolol Succinate 50 MG Tab.ER PO SCH (09:11)
[2017-06-07] MEDS: Lisinopril 20 MG Tab PO SCH (09:11)
[2017-06-07] MEDS: Finasteride 5 MG Tab PO SCH (09:11)
[2017-06-07] MEDS: Cyanocobalamin (Vitamin B12) 100 MCG Tab PO SCH (09:14)
--- NOTE | 2017-06-07 10:06 | PCM.PN ---
- General Info Date of Service: 06/07/17 Admission Dx/Problem (Free Text): Urinary tract infection and pneumonia Subjective Update: Feeling okay, strength has significantly improved, ambulating on the corridor. - Review of Systems General: Reports: Weakness. Denies: Fever Pulmonary: Denies: Shortness of Breath Cardiovascular: Denies: Chest Pain Gastrointestinal: Denies: Abdominal Pain - Patient Data Vitals - Most Recent: Last Vital Signs Temp 36.9 C 06/07/17 07:55 Pulse 61 06/07/17 09:11 Resp 20 06/07/17 07:55 BP 96/57 L 06/07/17 09:11 Pulse Ox 98 06/07/17 07:55 Weight - Most Recent: 74.389 kg I&O - Last 24 Hours: Intake & Output 06/06/17 06/07/17 06/07/17 22:59 06:59 14:59 Intake Total 1170 300 420 Output Total 1050 650 Balance 120 -350 420 Lab Results Last 24 Hours: Laboratory Results - last 24 hr 06/07/17 06/07/17 06/07/17 Range/Units 06:05 06:05 06:05 WBC 11.8 H (5.0-10.0) 10^3/uL RBC 4.26 L (4.6-6.2) 10^6/uL Hgb 11.0 L (14.0-18.0) g/dL Hct 33.2 L (40.0-54.0) % MCV 77.9 L (80-100) fL MCH 25.8 L (27.0-34.0) pg MCHC 33.1 (33.0-35.0) g/dL Plt Count 263 (150-450) 10^3/uL Neut % (Auto) 63.0 (42.2-75.2) % Lymph % (Auto) 23.9 (20.5-50.1) % [place] % (Auto) 11.4 H (2-8) % Eos % (Auto) 1.4 (1.0-3.0) % Baso % (Auto) 0.3 (0.0-1.0) % Add Manual Diff Yes Neutrophils % (Manual) 71 (42-75) % Band Neutrophils % 1 % Lymphocytes % (Manual) 23 (20-50) % Monocytes % (Manual) 3 (2-8) % Eosinophils % (Manual) 1 (1-3) % Metamyelocytes % 1 PT 23.3 H (9.0-12.0) SEC INR 2.3 H (0.9-1.2) Sodium 131 L (135-145) mmol/L Potassium 4.2 (3.6-5.0) mmol/L Chloride 97 L (101-111) mmol/L Carbon Dioxide 26.0 (21.0-31.0) mmol/L Anion Gap 12.2 BUN 40 H (7-18) mg/dL Creatinine 1.4 H (0.6-1.3) mg/dL Est Cr Clr Drug Dosing 36.47 mL/min Estimated GFR (MDRD) 48 Glucose 85 (74-105) mg/dL Calcium 8.5 (8.4-10.2) mg/dl Med Orders - Current: Current Medications Acetaminophen (Tylenol) 650 mg PO Q6H PRN PRN Reason: Pain Last Admin: 06/06/17 21:16 Dose: 650 mg Atorvastatin Calcium (Lipitor) 20 mg PO BEDTIME [facility] Last Admin: 06/06/17 21:05 Dose: Not Given Bismuth Subsalicylate (Pepto Bismol) 262 mg PO Q6H PRN PRN Reason: for nausea Clopidogrel Bisulfate (Plavix) 75 mg PO DAILY [facility] Last Admin: 06/07/17 09:10 Dose: 75 mg Cyanocobalamin (Vitamin B12) 500 mcg PO DAILY [facility] Last Admin: 06/07/17 09:14 Dose: Not Given Finasteride (Proscar) 5 mg PO DAILY [facility] Last Admin: 06/07/17 09:11 Dose: 5 mg Furosemide (Lasix) 40 mg PO DAILY [facility] Last Admin: 06/07/17 09:10 Dose: 40 mg Hydroxyzine HCl (Atarax) 25 mg PO Q8H PRN PRN Reason: Anxiety Last Admin: 06/05/17 20:54 Dose: 25 mg Isosorbide Mononitrate (Imdur) 30 mg PO ACBREAKFAST [facility] Last Admin: 06/07/17 06:05 Dose: 30 mg Lisinopril (Prinivil) 20 mg PO DAILY [facility] Last Admin: 06/07/17 09:11 Dose: 20 mg Magnesium Oxide (Magnesium Oxide) 250 mg PO BIDM [facility] Last Admin: 06/07/17 09:10 Dose: 250 mg Methyl Salicylate (Icy Hot Cream) 0 gm TOP QID PRN PRN Reason: Arthritis, neck pain Metoprolol Succinate (Toprol Xl) 100 mg PO DAILY [facility] Last Admin: 06/07/17 09:11 Dose: 100 mg Nitroglycerin (Nitrostat) 0.4 mg SL ASDIRECTED PRN PRN Reason: Chest Pain Oxazepam 15 Mg 0 mg PO TID PRN PRN Reason: Anxiety Last Admin: 06/07/17 06:06 Dose: 15 mg Pantoprazole Sodium (Protonix) 40 mg PO ACBREAKFAST [facility] Last Admin: 06/07/17 06:05 Dose: 40 mg Prednisone (Prednisone) 10 mg PO WITHBREAKFAST [facility] Triamcinolone Acetonide (Triamcinolone Acetonide 0.1% Oint) 0 gm TOP BID [facility] Last Admin: 06/06/17 21:09 Dose: 1 applic Warfarin Sodium (Pharmacy To Dose - Warfarin) 1 dose .XX ASDIRECTED [facility] Discontinued Medications Acetaminophen (Tylenol) 650 mg PO Q4H PRN PRN Reason: Pain (Mild 1-3)/fever Acetaminophen (Tylenol) 650 mg PO Q4H PRN PRN Reason: Pain (Mild 1-3)/fever Acetaminophen (Tylenol Extra Strength) 500 mg PO DAILY [facility] Atorvastatin Calcium (Lipitor) 20 mg PO BEDTIME [facility] Atorvastatin Calcium (Lipitor) 20 mg PO BEDTIME [facility] Clopidogrel Bisulfate (Plavix) 75 mg PO DAILY [facility] Clopidogrel Bisulfate (Plavix) 75 mg PO DAILY [facility] Cyanocobalamin (Vitamin B12) 500 mcg PO DAILY [facility] Cyanocobalamin (Vitamin B12) 500 mcg PO DAILY [facility] Docusate Sodium (Colace) 100 mg PO BID PRN PRN Reason: Constipation Docusate Sodium (Colace) 100 mg PO BID PRN PRN Reason: Constipation Finasteride (Proscar) 5 mg PO BEDTIME [facility] Finasteride (Proscar) 5 mg PO BEDTIME [facility] Furosemide (Lasix) 40 mg PO DAILY [facility] Furosemide (Lasix) 40 mg PO DAILY [facility] Hydroxyzine HCl (Atarax) 10 mg PO TID PRN PRN Reason: anxiety, itching Hydroxyzine HCl (Atarax) 10 mg PO TID PRN PRN Reason: anxiety, itching Isosorbide Mononitrate (Imdur) 30 mg PO ACBREAKFAST [facility] Levofloxacin (Levaquin) 500 mg PO Q24H [facility] Stop: 06/05/17 17:01 Last Admin: 06/05/17 17:17 Dose: 500 mg Lisinopril (Prinivil) 20 mg PO DAILY [facility] Lisinopril (Prinivil) 20 mg PO DAILY [facility] Magnesium Oxide (Magnesium Oxide) 250 mg PO BIDM [facility] Methyl Salicylate (Icy Hot Cream) 0 gm TOP QID PRN PRN Reason: Arthritis Methyl Salicylate (Icy Hot Cream) 0 gm TOP QID PRN PRN Reason: Arthritis Last Admin: 06/05/17 07:25 Dose: 1 applic Metoprolol Succinate (Toprol Xl) 100 mg PO DAILY [facility] Metoprolol Succinate (Toprol Xl) 100 mg PO DAILY [facility] Nitroglycerin (Nitrostat) 0.4 mg SL ASDIRECTED PRN PRN Reason: Chest Pain Nitroglycerin (Nitrostat) 0.4 mg SL ASDIRECTED PRN PRN Reason: Chest Pain Non-Formulary Medication (Oxazepam [Oxazepam]) 15 mg PO TID PRN PRN Reason: Anxiety Non-Formulary Medication (Oxazepam [Oxazepam]) 15 mg PO TID PRN PRN Reason: Anxiety Non-Formulary Medication (Pantoprazole [Pantoprazole]) 20 mg PO PCLUNCH [facility] Ondansetron HCl (Zofran) 4 mg IVPUSH Q6H PRN PRN Reason: Nausea/Vomiting Ondansetron HCl (Zofran) 4 mg IVPUSH Q6H PRN PRN Reason: Nausea/Vomiting Pantoprazole Sodium (Protonix) 40 mg PO ACBREAKFAST [facility] Polyethylene Glycol (Miralax) 17 gm PO DAILY PRN PRN Reason: Constipation Polyethylene Glycol (Miralax) 17 gm PO DAILY PRN PRN Reason: Constipation Prednisone (Prednisone) 20 mg PO WITHBREAKFAST [facility] Last Admin: 06/07/17 09:10 Dose: 20 mg Prednisone (Prednisone) 20 mg PO WITHBREAKFAST [facility] Sodium Chloride (Saline Flush) 10 ml FLUSH ASDIRECTED PRN PRN Reason: Keep Vein Open Sodium Chloride (Saline Flush) 10 ml FLUSH ASDIRECTED PRN PRN Reason: Keep Vein Open Warfarin Sodium (Coumadin) 0.75 mg PO ONETIME ONE Stop: 06/01/17 14:18 Last Admin: 06/01/17 15:34 Dose: Not Given Warfarin Sodium (Pharmacy To Dose - Warfarin) 1 dose .XX ASDIRECTED [facility] Warfarin Sodium (Coumadin) 0.75 mg PO ONETIME ONE Stop: 06/01/17 14:22 Last Admin: 06/01/17 15:34 Dose: Not Given Warfarin Sodium (Coumadin) 5 mg PO ONETIME ONE Stop: 06/03/17 14:01 Last Admin: 06/03/17 13:55 Dose: 5 mg Warfarin Sodium (Coumadin) 5 mg PO ONETIME ONE Stop: 06/04/17 14:01 Last Admin: 06/04/17 13:05 Dose: 5 mg Warfarin Sodium (Coumadin) 7.5 mg PO ONETIME ONE Stop: 06/05/17 14:01 Last Admin: 06/05/17 14:37 Dose: 7.5 mg Warfarin Sodium (Coumadin) 7.5 mg PO ONETIME ONE Stop: 06/06/17 14:01 Last Admin: 06/06/17 13:45 Dose: 7.5 mg - Exam General: Alert, Oriented Neck: Supple Lungs: Normal Respiratory Effort, Decreased Breath Sounds Cardiovascular: Regular Rate, Regular Rhythm, No Murmurs (Systolic murmur) Extremities: No Pedal Edema Skin: Warm, Dry Neurological: No New Focal Deficit Psy/Mental Status: Alert, Normal Affect, Normal Mood - Problem List & Annotations (1) Acute kidney injury superimposed on chronic kidney disease SNOMED Code(s): 30578623 Code(s): N17.9 - ACUTE KIDNEY FAILURE, UNSPECIFIED; N18.9 - CHRONIC KIDNEY DISEASE, UNSPECIFIED Status: Acute Current Visit: No (2) Urinary tract infection SNOMED Code(s): 51163492 Code(s): N39.0 - URINARY TRACT INFECTION, SITE NOT SPECIFIED Status: Acute Current Visit: No Qualifiers: Urinary tract infection type: acute cystitis (3) Pneumonia SNOMED Code(s): 016161207 Code(s): J18.9 - PNEUMONIA, UNSPECIFIED ORGANISM Status: Resolved Priority: High Current Visit: No - Problem List Review Problem List Initiated/Reviewed/Updated: Yes - My Orders Last 24 Hours: My Active Orders 06/07/17 09:00 Communication Order [RC] ASDIRECTED 06/07/17 09:56 predniSONE 10 mg PO WITHBREAKFAST 06/08/17 06:00 INR,PT,PROTHROMBIN TIME [[facility]] DAILY 06/09/17 06:00 INR,PT,PROTHROMBIN TIME [[facility]] DAILY 06/10/17 06:00 INR,PT,PROTHROMBIN TIME [[facility]] DAILY 06/11/17 06:00 INR,PT,PROTHROMBIN TIME [[facility]] DAILY - Plan Plan:: 87-year-old male presented with generalized weakness Noted to have left lingular pneumonia and UTI with E. Coli. Ct brain was negative. He was managed with IV antibiotics with significant improvement. He was admitted to swing bed for OT/PT for strengthening. Impression and Plan: #Pneumonia POA -Improved -finished Levaquin PO #E.Coli UTI due to indwelling catheter -finished Levaquin #Generalized weakness Possibly from pneumonia and UTI Continue PT/OT #Acute on chronic kidney failure stable monitor periodically #Chronic congestive heart failure -Continue metoprolol succinate and lisinopril and Imdur #History of atrial fibrillation -Continue warfarin. target inr 2-3 #Heart valvular disease. Status post valve replacement 1 months ago Patient does not know which valve was replaced. Continue warfarin #History of gout Patient had it in right thumb got improved. Tylenol as needed -taper Prednisone from 20 to 10 mg daily #Essential hypertension Continue metoprolol succinate, lisinopril and Imdur #Chronic arthritis -Continue Tylenol #Anxiety Continue hydroxyzine as needed and oxazepam at bedtime to help with sleep CODE STATUS: Full DVT prophylaxis: He is on warfarin and Plavix
[2017-06-07] MEDS ORDERED: Warfarin 5 MG Tab PO ONE (14:00)
[2017-06-07] MEDS: Acetaminophen 325 MG Tab PO PRN (14:05)
[2017-06-07] MEDS: atorvaSTATin 20 MG Tab PO SCH (21:59)
[2017-06-08] MEDS: Pantoprazole 40 MG Tab.CR PO SCH (05:19)
[2017-06-08] MEDS: Isosorbide Mononitrate 30 MG Tab.ER PO SCH (05:19)
[2017-06-08] MEDS: OXAZEPAM 15 MG PO PRN ×3 (06:19→22:35)
[2017-06-08] MEDS: Furosemide 40 MG Tab PO SCH (08:44)
[2017-06-08] MEDS: Cyanocobalamin (Vitamin B12) 100 MCG Tab PO SCH ×2 (08:46→08:57)
[2017-06-08] MEDS: predniSONE 20 MG Tab PO SCH (08:47)
[2017-06-08] MEDS: Metoprolol Succinate 50 MG Tab.ER PO SCH (08:47)
[2017-06-08] MEDS: Finasteride 5 MG Tab PO SCH (08:49)
[2017-06-08] MEDS: Clopidogrel 75 MG Tab PO SCH (08:49)
[2017-06-08] MEDS: Lisinopril 20 MG Tab PO SCH (08:50)
[2017-06-08] MEDS: Triamcinolone Acetonide 0.1% Oint 15 GM Tube TOP SCH ×2 (08:55→22:24)
[2017-06-08] MEDS: atorvaSTATin 20 MG Tab PO SCH (22:22)
[2017-06-09] MEDS: Pantoprazole 40 MG Tab.CR PO SCH (05:44)
[2017-06-09] MEDS: Isosorbide Mononitrate 30 MG Tab.ER PO SCH (05:44)
[2017-06-09] MEDS: OXAZEPAM 15 MG PO PRN ×3 (06:41→22:34)
[2017-06-09] MEDS: Cyanocobalamin (Vitamin B12) 100 MCG Tab PO SCH (09:14)
[2017-06-09] MEDS: Furosemide 40 MG Tab PO SCH (09:16)
[2017-06-09] MEDS: Metoprolol Succinate 50 MG Tab.ER PO SCH (09:16)
[2017-06-09] MEDS: Clopidogrel 75 MG Tab PO SCH (09:16)
[2017-06-09] MEDS: Lisinopril 20 MG Tab PO SCH (09:17)
[2017-06-09] MEDS: predniSONE 20 MG Tab PO SCH (09:17)
[2017-06-09] MEDS: Finasteride 5 MG Tab PO SCH (09:17)
[2017-06-09] MEDS: Triamcinolone Acetonide 0.1% Oint 15 GM Tube TOP SCH ×2 (09:25→22:12)
[2017-06-09] MEDS: atorvaSTATin 20 MG Tab PO SCH (22:12)
[2017-06-10] MEDS: Pantoprazole 40 MG Tab.CR PO SCH (06:41)
[2017-06-10] MEDS: Isosorbide Mononitrate 30 MG Tab.ER PO SCH (06:41)
[2017-06-10] MEDS: Finasteride 5 MG Tab PO SCH (08:17)
[2017-06-10] MEDS: Furosemide 40 MG Tab PO SCH (08:17)
[2017-06-10] MEDS: predniSONE 20 MG Tab PO SCH (08:18)
[2017-06-10] MEDS: Clopidogrel 75 MG Tab PO SCH (08:18)
[2017-06-10] MEDS: Metoprolol Succinate 50 MG Tab.ER PO SCH (08:18)
[2017-06-10] MEDS: Lisinopril 20 MG Tab PO SCH (08:19)
[2017-06-10] MEDS: OXAZEPAM 15 MG PO PRN ×3 (08:20→21:55)
[2017-06-10] MEDS: Triamcinolone Acetonide 0.1% Oint 15 GM Tube TOP SCH ×2 (08:23→20:33)
[2017-06-10] MEDS: Cyanocobalamin (Vitamin B12) 100 MCG Tab PO SCH (10:48)
[2017-06-10] MEDS: Menthol/Methyl Salicylate 85 GM Tube TOP PRN (13:46)
[2017-06-10] MEDS ORDERED: Warfarin 5 MG Tab PO ONE (14:00)
[2017-06-10] MEDS: atorvaSTATin 20 MG Tab PO SCH (20:32)
[2017-06-11] MEDS: OXAZEPAM 15 MG PO PRN ×3 (06:03→22:00)
[2017-06-11] MEDS: Pantoprazole 40 MG Tab.CR PO SCH (06:04)
[2017-06-11] MEDS: Isosorbide Mononitrate 30 MG Tab.ER PO SCH (06:07)
[2017-06-11] MEDS: Furosemide 40 MG Tab PO SCH (08:29)
[2017-06-11] MEDS: Finasteride 5 MG Tab PO SCH (08:29)
[2017-06-11] MEDS: Clopidogrel 75 MG Tab PO SCH (08:29)
[2017-06-11] MEDS: predniSONE 20 MG Tab PO SCH (08:29)
[2017-06-11] MEDS: Cyanocobalamin (Vitamin B12) 100 MCG Tab PO SCH (08:29)
[2017-06-11] MEDS: Triamcinolone Acetonide 0.1% Oint 15 GM Tube TOP SCH ×2 (09:28→22:01)
[2017-06-11] MEDS: Lisinopril 20 MG Tab PO SCH (11:25)
[2017-06-11] MEDS: Metoprolol Succinate 50 MG Tab.ER PO SCH (11:25)
[2017-06-11] MEDS: Menthol/Methyl Salicylate 85 GM Tube TOP PRN (13:54)
[2017-06-11] MEDS ORDERED: Warfarin 5 MG Tab PO ONE (14:00)
[2017-06-11] MEDS: atorvaSTATin 20 MG Tab PO SCH (20:57)
[2017-06-12] MEDS: Pantoprazole 40 MG Tab.CR PO SCH (05:57)
[2017-06-12] MEDS: Isosorbide Mononitrate 30 MG Tab.ER PO SCH (06:01)
[2017-06-12] MEDS: OXAZEPAM 15 MG PO PRN ×3 (06:15→22:17)
[2017-06-12] MEDS: predniSONE 20 MG Tab PO SCH (08:28)
[2017-06-12] MEDS: Metoprolol Succinate 50 MG Tab.ER PO SCH (08:28)
[2017-06-12] MEDS: Finasteride 5 MG Tab PO SCH (08:28)
[2017-06-12] MEDS: Cyanocobalamin (Vitamin B12) 100 MCG Tab PO SCH (08:28)
[2017-06-12] MEDS: Lisinopril 20 MG Tab PO SCH (08:28)
[2017-06-12] MEDS: Furosemide 40 MG Tab PO SCH (08:28)
[2017-06-12] MEDS: Clopidogrel 75 MG Tab PO SCH (08:28)
[2017-06-12] MEDS: Triamcinolone Acetonide 0.1% Oint 15 GM Tube TOP SCH ×2 (08:29→22:18)
[2017-06-12] MEDS ORDERED: Warfarin 5 MG Tab PO ONE (14:00)
[2017-06-12] MEDS: atorvaSTATin 20 MG Tab PO SCH (21:21)
[2017-06-13] MEDS: OXAZEPAM 15 MG PO PRN ×3 (04:30→21:25)
[2017-06-13] MEDS: Isosorbide Mononitrate 30 MG Tab.ER PO SCH (06:33)
[2017-06-13] MEDS: Pantoprazole 40 MG Tab.CR PO SCH (06:33)
[2017-06-13] MEDS: predniSONE 20 MG Tab PO SCH (08:12)
[2017-06-13] MEDS: Triamcinolone Acetonide 0.1% Oint 15 GM Tube TOP SCH ×2 (08:12→21:25)
[2017-06-13] MEDS: Furosemide 40 MG Tab PO SCH (08:12)
[2017-06-13] MEDS: Finasteride 5 MG Tab PO SCH (08:12)
[2017-06-13] MEDS: Metoprolol Succinate 50 MG Tab.ER PO SCH (08:12)
[2017-06-13] MEDS: Clopidogrel 75 MG Tab PO SCH (08:12)
[2017-06-13] MEDS: Cyanocobalamin (Vitamin B12) 100 MCG Tab PO SCH (08:13)
[2017-06-13] MEDS: Lisinopril 20 MG Tab PO SCH (08:13)
[2017-06-13] MEDS ORDERED: Warfarin 5 MG Tab PO SCH (14:00)
[2017-06-13] MEDS: atorvaSTATin 20 MG Tab PO SCH (21:08)
[2017-06-14] MEDS: Pantoprazole 40 MG Tab.CR PO SCH (05:51)
[2017-06-14] MEDS: OXAZEPAM 15 MG PO PRN (05:51)
[2017-06-14] MEDS: Isosorbide Mononitrate 30 MG Tab.ER PO SCH (05:51)
[2017-06-14] MEDS: Furosemide 40 MG Tab PO SCH (09:08)
[2017-06-14] MEDS: predniSONE 20 MG Tab PO SCH (09:08)
[2017-06-14] MEDS: Cyanocobalamin (Vitamin B12) 100 MCG Tab PO SCH (09:12)
[2017-06-14] MEDS: Finasteride 5 MG Tab PO SCH (09:13)
[2017-06-14] MEDS: Lisinopril 20 MG Tab PO SCH (09:13)
[2017-06-14] MEDS: Metoprolol Succinate 50 MG Tab.ER PO SCH (09:14)
[2017-06-14] MEDS: Clopidogrel 75 MG Tab PO SCH (09:15)
[2017-06-14] MEDS: Triamcinolone Acetonide 0.1% Oint 15 GM Tube TOP SCH (09:16)
--- NOTE | 2017-06-14 12:06 | PCM.DCSUM1 ---
Discharge Summary - Hospital Course Free Text/Narrative:: 87-year-old male with above past medical history presented with generalized weakness that progressed rapidly over 2 days without any other symptoms. Chest x -ray on admission was concerning for left lingular pneumonia and urinalysis was consistent with UTI. Urine culture was positive for E. Coli. Ct brain was negative. He was managed with IV antibiotics with significant improvement. He is discharged to swing bed for OT/PT for strengthening. He did well during his two week stay in swing bed. Completed his antibiotics and worked well with PT/ OT. Should follow up with PCP. Continue coumadin. Stop prednisone which he had received for gout. - Discharge Data Discharge Date: 06/14/17 Discharge Disposition: Home, Self-Care 01 Condition: Good - Patient Summary/Data Consults: Consultations 06/01/17 15:25 OT Evaluation and Treatment [CONS] Routine PT Evaluation and Treatment [CONS] Routine - Patient Instructions Diet: Regular Diet as Tolerated Activity: As Tolerated - Discharge Plan Home Medications: Home Meds Oxazepam 15 mg PO TID PRN 12/27/13 [History] Nitroglycerin 0.4 mg SL ASDIRECTED PRN 06/07/14 [History] Furosemide [Lasix] 40 mg PO DAILY 12/16/16 [History] Metoprolol Succinate [Toprol XL] 100 mg PO DAILY 12/16/16 [History] Acetaminophen 500 mg PO DAILY 05/26/17 [History] Clopidogrel [Plavix] 75 mg PO DAILY 05/26/17 [History] Cyanocobalamin (Vitamin B-12) [Vitamin B-12] 500 mcg PO DAILY 05/26/17 [History] Finasteride 5 mg PO DAILY 05/26/17 [History] Lisinopril 20 mg PO DAILY 05/26/17 [History] Pantoprazole 20 mg PO PCLUNCH 05/26/17 [History] atorvaSTATin [Lipitor] 20 mg PO BEDTIME 05/26/17 [History] hydrOXYzine HCl [hydrOXYzine] 25 mg PO Q8H PRN 05/26/17 [History] Warfarin [Coumadin] 2.5 mg PO .FRI 05/27/17 [History] Warfarin [Coumadin] 5 mg PO .M,T,W,R,SA,MONTOYA 05/27/17 [History] Triamcinolone Acetonide [Triamcinolone Acetonide 0.1% Oint] 1 gm TOP BID PRN [History] - General Info Admission Dx/Problem (Free Text: Urinary tract infection and pneumonia Subjective Update: Feeling okay, strength has significantly improved, ambulating on the corridor. - Review of Systems General: Reports: No Symptoms HEENT: Reports: No Symptoms Pulmonary: Reports: No Symptoms Cardiovascular: Reports: No Symptoms Gastrointestinal: Reports: No Symptoms Genitourinary: Reports: No Symptoms - Patient Data Vitals - Most Recent: Last Vital Signs Temp 36.9 C 06/13/17 20:12 Pulse 64 06/14/17 09:14 Resp 18 06/13/17 20:12 BP 107/46 L 06/14/17 09:14 Pulse Ox 100 06/13/17 20:12 Weight - Most Recent: 74.661 kg I&O - Last 24 hours: Intake & Output 06/13/17 06/14/17 06/14/17 22:59 06:59 14:59 Intake Total 690 350 480 Output Total 850 525 Balance -160 -175 480 Lab Results - Last 24 hrs: Laboratory Results - last 24 hr 06/14/17 Range/Units 06:30 PT 34.8 H (9.0-12.0) SEC INR 3.5 H (0.9-1.2) Med Orders - Current: Current Medications Acetaminophen (Tylenol) 650 mg PO Q6H PRN PRN Reason: Pain Last Admin: 06/07/17 14:05 Dose: 650 mg Atorvastatin Calcium (Lipitor) 20 mg PO BEDTIME [facility] Last Admin: 06/13/17 21:08 Dose: Not Given Bismuth Subsalicylate (Pepto Bismol) 262 mg PO Q6H PRN PRN Reason: for nausea Clopidogrel Bisulfate (Plavix) 75 mg PO DAILY [facility] Last Admin: 06/14/17 09:15 Dose: 75 mg Cyanocobalamin (Vitamin B12) 500 mcg PO DAILY [facility] Last Admin: 06/14/17 09:12 Dose: Not Given Finasteride (Proscar) 5 mg PO DAILY [facility] Last Admin: 06/14/17 09:13 Dose: 5 mg Furosemide (Lasix) 40 mg PO DAILY [facility] Last Admin: 06/14/17 09:08 Dose: 40 mg Hydroxyzine HCl (Atarax) 25 mg PO Q8H PRN PRN Reason: Anxiety Last Admin: 06/05/17 20:54 Dose: 25 mg Isosorbide Mononitrate (Imdur) 30 mg PO ACBREAKFAST [facility] Last Admin: 06/14/17 05:51 Dose: 30 mg Lisinopril (Prinivil) 20 mg PO DAILY [facility] Last Admin: 06/14/17 09:13 Dose: 20 mg Magnesium Oxide (Magnesium Oxide) 250 mg PO BIDM [facility] Last Admin: 06/14/17 09:15 Dose: 250 mg Methyl Salicylate (Icy Hot Cream) 0 gm TOP QID PRN PRN Reason: Arthritis, neck pain Last Admin: 06/11/17 13:54 Dose: 1 applic Metoprolol Succinate (Toprol Xl) 100 mg PO DAILY [facility] Last Admin: 06/14/17 09:14 Dose: 100 mg Nitroglycerin (Nitrostat) 0.4 mg SL ASDIRECTED PRN PRN Reason: Chest Pain Oxazepam 15 Mg 0 mg PO TID PRN PRN Reason: Anxiety Last Admin: 06/14/17 05:51 Dose: 15 mg Pantoprazole Sodium (Protonix) 40 mg PO ACBREAKFAST [facility] Last Admin: 06/14/17 05:51 Dose: 40 mg Prednisone (Prednisone) 10 mg PO WITHBREAKFAST [facility] Last Admin: 06/14/17 09:08 Dose: 10 mg Triamcinolone Acetonide (Triamcinolone Acetonide 0.1% Oint) 0 gm TOP BID [facility] Last Admin: 06/14/17 09:16 Dose: Not Given Warfarin Sodium (Pharmacy To Dose - Warfarin) 1 dose .XX ASDIRECTED [facility] Warfarin Sodium (Coumadin) 0.5 mg PO ONETIME ONE Stop: 06/14/17 14:01 Discontinued Medications Acetaminophen (Tylenol) 650 mg PO Q4H PRN PRN Reason: Pain (Mild 1-3)/fever Acetaminophen (Tylenol) 650 mg PO Q4H PRN PRN Reason: Pain (Mild 1-3)/fever Acetaminophen (Tylenol Extra Strength) 500 mg PO DAILY [facility] Atorvastatin Calcium (Lipitor) 20 mg PO BEDTIME [facility] Atorvastatin Calcium (Lipitor) 20 mg PO BEDTIME [facility] Clopidogrel Bisulfate (Plavix) 75 mg PO DAILY [facility] Clopidogrel Bisulfate (Plavix) 75 mg PO DAILY [facility] Cyanocobalamin (Vitamin B12) 500 mcg PO DAILY [facility] Cyanocobalamin (Vitamin B12) 500 mcg PO DAILY [facility] Docusate Sodium (Colace) 100 mg PO BID PRN PRN Reason: Constipation Docusate Sodium (Colace) 100 mg PO BID PRN PRN Reason: Constipation Finasteride (Proscar) 5 mg PO BEDTIME [facility] Finasteride (Proscar) 5 mg PO BEDTIME [facility] Furosemide (Lasix) 40 mg PO DAILY [facility] Furosemide (Lasix) 40 mg PO DAILY [facility] Hydroxyzine HCl (Atarax) 10 mg PO TID PRN PRN Reason: anxiety, itching Hydroxyzine HCl (Atarax) 10 mg PO TID PRN PRN Reason: anxiety, itching Isosorbide Mononitrate (Imdur) 30 mg PO ACBREAKFAST [facility] Levofloxacin (Levaquin) 500 mg PO Q24H [facility] Stop: 06/05/17 17:01 Last Admin: 06/05/17 17:17 Dose: 500 mg Lisinopril (Prinivil) 20 mg PO DAILY [facility] Lisinopril (Prinivil) 20 mg PO DAILY [facility] Magnesium Oxide (Magnesium Oxide) 250 mg PO BIDM [facility] Methyl Salicylate (Icy Hot Cream) 0 gm TOP QID PRN PRN Reason: Arthritis Methyl Salicylate (Icy Hot Cream) 0 gm TOP QID PRN PRN Reason: Arthritis Last Admin: 06/05/17 07:25 Dose: 1 applic Metoprolol Succinate (Toprol Xl) 100 mg PO DAILY [facility] Metoprolol Succinate (Toprol Xl) 100 mg PO DAILY [facility] Nitroglycerin (Nitrostat) 0.4 mg SL ASDIRECTED PRN PRN Reason: Chest Pain Nitroglycerin (Nitrostat) 0.4 mg SL ASDIRECTED PRN PRN Reason: Chest Pain Non-Formulary Medication (Oxazepam [Oxazepam]) 15 mg PO TID PRN PRN Reason: Anxiety Non-Formulary Medication (Oxazepam [Oxazepam]) 15 mg PO TID PRN PRN Reason: Anxiety Non-Formulary Medication (Pantoprazole [Pantoprazole]) 20 mg PO PCLUNCH [facility] Ondansetron HCl (Zofran) 4 mg IVPUSH Q6H PRN PRN Reason: Nausea/Vomiting Ondansetron HCl (Zofran) 4 mg IVPUSH Q6H PRN PRN Reason: Nausea/Vomiting Pantoprazole Sodium (Protonix) 40 mg PO ACBREAKFAST [facility] Polyethylene Glycol (Miralax) 17 gm PO DAILY PRN PRN Reason: Constipation Polyethylene Glycol (Miralax) 17 gm PO DAILY PRN PRN Reason: Constipation Prednisone (Prednisone) 20 mg PO WITHBREAKFAST [facility] Last Admin: 06/07/17 09:10 Dose: 20 mg Prednisone (Prednisone) 20 mg PO WITHBREAKFAST [facility] Sodium Chloride (Saline Flush) 10 ml FLUSH ASDIRECTED PRN PRN Reason: Keep Vein Open Sodium Chloride (Saline Flush) 10 ml FLUSH ASDIRECTED PRN PRN Reason: Keep Vein Open Warfarin Sodium (Coumadin) 0.75 mg PO ONETIME ONE Stop: 06/01/17 14:18 Last Admin: 06/01/17 15:34 Dose: Not Given Warfarin Sodium (Pharmacy To Dose - Warfarin) 1 dose .XX ASDIRECTED [facility] Warfarin Sodium (Coumadin) 0.75 mg PO ONETIME ONE Stop: 06/01/17 14:22 Last Admin: 06/01/17 15:34 Dose: Not Given Warfarin Sodium (Coumadin) 5 mg PO ONETIME ONE Stop: 06/03/17 14:01 Last Admin: 06/03/17 13:55 Dose: 5 mg Warfarin Sodium (Coumadin) 5 mg PO ONETIME ONE Stop: 06/04/17 14:01 Last Admin: 06/04/17 13:05 Dose: 5 mg Warfarin Sodium (Coumadin) 7.5 mg PO ONETIME ONE Stop: 06/05/17 14:01 Last Admin: 06/05/17 14:37 Dose: 7.5 mg Warfarin Sodium (Coumadin) 7.5 mg PO ONETIME ONE Stop: 06/06/17 14:01 Last Admin: 06/06/17 13:45 Dose: 7.5 mg Warfarin Sodium (Coumadin) 5 mg PO ONETIME ONE Stop: 06/07/17 14:01 Last Admin: 06/07/17 14:00 Dose: 5 mg Warfarin Sodium (Coumadin) 0.5 mg PO ONETIME ONE Stop: 06/08/17 14:01 Last Admin: 06/08/17 14:21 Dose: 0.5 mg Warfarin Sodium (Coumadin) 0.5 mg PO ONETIME ONE Stop: 06/09/17 14:01 Last Admin: 06/09/17 14:26 Dose: 0.5 mg Warfarin Sodium (Coumadin) 5 mg PO ONETIME ONE Stop: 06/10/17 14:01 Last Admin: 06/10/17 13:46 Dose: 5 mg Warfarin Sodium (Coumadin) 5 mg PO ONETIME ONE Stop: 06/11/17 14:01 Last Admin: 06/11/17 13:54 Dose: 5 mg Warfarin Sodium (Coumadin) 5 mg PO ONETIME ONE Stop: 06/12/17 14:01 Last Admin: 06/12/17 13:40 Dose: 5 mg Warfarin Sodium (Coumadin) 5 mg PO DAILY@1400 [facility] Stop: 06/13/17 14:01 Last Admin: 06/13/17 13:55 Dose: 5 mg - Exam General: Reports: Alert, Oriented HEENT: Reports: Pupils Equal, Pupils Reactive, EOMI, Mucous Membr. Moist/[place] Neck: Reports: Supple Lungs: Reports: Clear to Auscultation, Normal Respiratory Effort Cardiovascular: Reports: Regular Rate, Regular Rhythm GI/Abdominal Exam: Normal Bowel Sounds, Soft, Non-Tender, No Organomegaly, No Distention, No Abnormal Bruit, No Mass, Pelvis Stable *Q Meaningful Use (DIS) - VTE *Q VTE Criteria *Q: - Stroke *Q Stroke Criteria *Q: - AMI *Q AMI Criteria *Q:
[2017-06-14 15:09] VITALS: BP 83/34
== END 2017-06-14 14:15 | disposition home health service (06) | DRG 947 ==
LOC: DL.MS 14:17
PROVIDERS: ADMIT Student in an Organized Health Care Education/Training Program; ATTEND Student in an Organized Health Care Education/Training Program
DX: R53.1 Weakness (principal); J18.9 Pneumonia, unspecified organism; I25.810 Atherosclerosis of coronary artery bypass graft(s) without angina pectoris; I13.0 Hypertensive heart and chronic kidney disease with heart failure and stage 1 through stage 4 chronic kidney disease, or unspecified chronic kidney disease; T83.511D Infection and inflammatory reaction due to indwelling urethral catheter, subsequent encounter; M19.90 Unspecified osteoarthritis, unspecified site; I48.91 Unspecified atrial fibrillation; I50.9 Heart failure, unspecified; N18.9 Chronic kidney disease, unspecified; Z95.5 Presence of coronary angioplasty implant and graft; K21.9 Gastro-esophageal reflux disease without esophagitis; Z93.6 Other artificial openings of urinary tract status; R33.9 Retention of urine, unspecified; F41.9 Anxiety disorder, unspecified; Z95.2 Presence of prosthetic heart valve; M10.9 Gout, unspecified; H91.90 Unspecified hearing loss, unspecified ear; H54.7 Unspecified visual loss; Z88.8 Allergy status to other drugs, medicaments and biological substances; Z79.01 Long term (current) use of anticoagulants; Z79.02 Long term (current) use of antithrombotics/antiplatelets; Z79.899 Other long term (current) drug therapy
CPT/HCPCS: 36415; 80048; 82962; 85025; 85610; 97110-GO; 97110-GP; 97116-GP; 97162-GP; 97165-GO; 97530-GO; A9270-GY

== ENCOUNTER 2017-06-19 20:54 | Emergency (ER) | payer MEDICARE ==
[2017-06-19 21:06] VITALS: BP 173/76
--- NOTE | 2017-06-19 22:31 | EDM.PDOC ---
ED HPI GENERAL MEDICAL PROBLEM - General Chief Complaint: Behavioral/Psych Stated Complaint: BY AMBULANCE Time Seen by Provider: 06/19/17 21:10 Source of Information: Reports: Patient History Limitations: Reports: No Limitations - History of Present Illness INITIAL COMMENTS - FREE TEXT/NARRATIVE: ED via [facility] with c/o that it seems like he is having to take deeper breaths. Notes yesterday able take long walk and today does not have as much energy. Denies pain. States feel like something must be wrong. - Related Data Allergies Allergy/AdvReac Type Severity Reaction Status Date / Time hydrochlorothiazide Allergy Fainting Verified 06/01/17 20:01 Home Meds: Home Meds Oxazepam 15 mg PO TID PRN 12/27/13 [History] Nitroglycerin 0.4 mg SL ASDIRECTED PRN 06/07/14 [History] Furosemide [Lasix] 40 mg PO DAILY 12/16/16 [History] Metoprolol Succinate [Toprol XL] 100 mg PO DAILY 12/16/16 [History] Acetaminophen 500 mg PO DAILY 05/26/17 [History] Clopidogrel [Plavix] 75 mg PO DAILY 05/26/17 [History] Cyanocobalamin (Vitamin B-12) [Vitamin B-12] 500 mcg PO DAILY 05/26/17 [History] Finasteride 5 mg PO DAILY 05/26/17 [History] Lisinopril 20 mg PO DAILY 05/26/17 [History] Pantoprazole 20 mg PO PCLUNCH 05/26/17 [History] atorvaSTATin [Lipitor] 20 mg PO BEDTIME 05/26/17 [History] hydrOXYzine HCl [hydrOXYzine] 25 mg PO Q8H PRN 05/26/17 [History] Warfarin [Coumadin] 2.5 mg PO .FRI 05/27/17 [History] Warfarin [Coumadin] 5 mg PO .M,T,W,TH,SA,MONTOYA 05/27/17 [History] Triamcinolone Acetonide [Triamcinolone Acetonide 0.1% Oint] 1 gm TOP BID PRN [History] Past Medical History HEENT History: Reports: Hard of Hearing, Impaired Vision Cardiovascular History: Reports: Afib, CAD, High Cholesterol, Hypertension Respiratory History: Reports: Pneumonia, Recurrent Gastrointestinal History: Reports: GERD Genitourinary History: Reports: UTI, Recurrent Other Genitourinary History: urinary retention, Pt has indwelling catheter for the last 2 months, Musculoskeletal History: Reports: Arthritis, Gout Neurological History: Reports: None Psychiatric History: Reports: Anxiety Endocrine/Metabolic History: Reports: None Hematologic History: Reports: None Immunologic History: Reports: None Oncologic (Cancer) History: Reports: None Dermatologic History: Reports: Other (See Below) Other Dermatologic History: sores to top of head - Infectious Disease History Infectious Disease History: Reports: Chicken Pox, Measles, Mumps - Past Surgical History Head Surgeries/Procedures: Reports: None Cardiovascular Surgical History: Reports: Coronary Artery Bypass, Coronary Artery Stent, Valve Replacement Social & Family History - Family History Family Medical History: Noncontributory - Tobacco Use Smoking Status *Q: Never Smoker Second Hand Smoke Exposure: No - Caffeine Use Caffeine Use: Reports: Coffee, Soda, Tea Other Caffeine Use: 24 oz daily - Alcohol Use Days Per Week of Alcohol Use: 7 Number of Drinks Per Day: 1 Total Drinks Per Week: 7 - Recreational Drug Use Recreational Drug Use: No - Living Situation & Occupation Living situation: Reports: , with Spouse Occupation: Retired ED ROS GENERAL - Review of Systems Review Of Systems: See Below Constitutional: Reports: Fatigue HEENT: Reports: No Symptoms Respiratory: Denies: Shortness of Breath (just feeling of having to breath deeper) Cardiovascular: Reports: No Symptoms Endocrine: Reports: Fatigue (more than yesterday) GI/Abdominal: Reports: No Symptoms : Reports: No Symptoms, Other (indwelling santos) Musculoskeletal: Reports: No Symptoms Skin: Reports: No Symptoms Neurological: Reports: No Symptoms Psychiatric: Reports: Anxiety ED EXAM, GENERAL - Physical Exam Exam: See Below Exam Limited By: No Limitations General Appearance: Alert, No Apparent Distress, Anxious Eye Exam: Bilateral Eye: EOMI Ears: Normal External Exam Nose: Normal Inspection Throat/Mouth: Normal Inspection, Normal Oropharynx Head: Atraumatic, Normocephalic Neck: Normal Inspection Respiratory/Chest: No Respiratory Distress, Lungs Clear, Normal Breath Sounds Cardiovascular: Normal Peripheral Pulses, Regular Rate, Rhythm GI/Abdominal: Normal Bowel Sounds, Soft, Non-Tender Neurological: Alert, Oriented, Normal Cognition Psychiatric: Anxious Skin Exam: Warm, Dry, Intact, Normal Color Course - Vital Signs Last Recorded V/S: Last Vital Signs Temp 98.7 F 06/19/17 20:59 Pulse 60 06/19/17 20:59 Resp 22 H 06/19/17 20:59 BP 173/76 H 06/19/17 20:59 Pulse Ox 100 06/19/17 20:59 - Orders/Labs/Meds Labs: Laboratory Tests 06/19/17 06/19/17 06/19/17 Range/Units 21:50 21:50 21:50 WBC 9.2 (5.0-10.0) 10^3/uL RBC 4.44 L (4.6-6.2) 10^6/uL Hgb 11.6 L (14.0-18.0) g/dL Hct 34.8 L (40.0-54.0) % MCV 78.4 L (80-100) fL MCH 26.1 L (27.0-34.0) pg MCHC 33.3 (33.0-35.0) g/dL Plt Count 159 D (150-450) 10^3/uL Neut % (Auto) 60.2 (42.2-75.2) % Lymph % (Auto) 23.6 (20.5-50.1) % Cross % (Auto) 12.0 H (2-8) % Eos % (Auto) 3.7 H (1.0-3.0) % Baso % (Auto) 0.5 (0.0-1.0) % PT 35.9 H (9.0-12.0) SEC INR 3.6 H (0.9-1.2) Sodium 136 (135-145) mmol/L Potassium 4.5 (3.6-5.0) mmol/L Chloride 100 L (101-111) mmol/L Carbon Dioxide 25.0 (21.0-31.0) mmol/L Anion Gap 15.5 BUN 34 H (7-18) mg/dL Creatinine 1.4 H (0.6-1.3) mg/dL Est Cr Clr Drug Dosing 36.47 mL/min Estimated GFR (MDRD) 48 BUN/Creatinine Ratio 24.28 Glucose 91 (74-105) mg/dL Calcium 8.6 (8.4-10.2) mg/dl Total Bilirubin 0.9 (0.2-1.0) mg/dL AST 26 (10-42) IU/L ALT 15 (10-60) IU/L Alkaline Phosphatase 71 (42-121) IU/L Troponin I 0.03 H* (0.00-0.02) ng/ml B-Natriuretic Peptide 363 H (0-100) pg/ml Total Protein 7.0 (6.7-8.2) g/dl Albumin 3.5 (3.2-5.5) g/dl Globulin 3.5 Albumin/Globulin Ratio 1.00 - Radiology Interpretation Free Text/Narrative:: CXR normal Departure - Departure Time of Disposition: 22:27 Disposition: Home, Self-Care 01 Condition: Good Clinical Impression: Anxiety - Discharge Information Instructions: Generalized Anxiety Disorder, Adult Referrals: PCP,Unobtain [Primary Care Provider] - Forms: ED Department Discharge Additional Instructions: rest light activity follow up in clinic this week
== END 2017-06-19 23:05 | disposition home or self-care (01) ==
LOC: DL.ED 20:54
DX: F41.9 Anxiety disorder, unspecified (principal); I10 Essential (primary) hypertension; I48.91 Unspecified atrial fibrillation; I25.10 Atherosclerotic heart disease of native coronary artery without angina pectoris; E78.00 Pure hypercholesterolemia, unspecified; K21.9 Gastro-esophageal reflux disease without esophagitis; Z95.1 Presence of aortocoronary bypass graft; Z95.2 Presence of prosthetic heart valve; Z79.01 Long term (current) use of anticoagulants; Z79.02 Long term (current) use of antithrombotics/antiplatelets; Z79.899 Other long term (current) drug therapy; Z88.8 Allergy status to other drugs, medicaments and biological substances
CPT/HCPCS: 36415; 71045; 80053; 83880; 84484; 85025; 85610; 99283; 99284

== ENCOUNTER 2017-07-09 09:06 | Emergency (ER) | payer MEDICARE ==
[2017-07-09 09:12] VITALS: BP 171/82
--- NOTE | 2017-07-09 09:25 | EDM.PDOC ---
ED HPI GENERAL MEDICAL PROBLEM - General Chief Complaint: Trauma Stated Complaint: BY AMBULANCE, GENERAL Time Seen by Provider: 07/09/17 09:07 Source of Information: Reports: Patient, EMS, EMS Notes Reviewed, RN, RN Notes Reviewed History Limitations: Reports: No Limitations - History of Present Illness INITIAL COMMENTS - FREE TEXT/NARRATIVE: PRIMARY TRAUMA SURVEY: Arrives per [facility] without spine board or c collar immobilization. Pt states he did not hit his head, and has no pain in the head or neck. Pt. awake, alert, oriented to person, place, and date. AIRWAY: Patent nasal and oral airways. Conversant with clear speech. BREATHING: Spontaneous respirations, with lungs diminished B/L. Good color, no cyanosis. CIRCULATION: Intact peripheral pulses at all 4 distal extremities, normal capillary refill time at all four extremities distal digits. Heart RRR, no murmur, no rub. DISABILITY/DEFORMITIES: No bleeding. No upper or lower extremity pain, obvious deformity, lacerations, abrasions, swelling, bruising, discoloration, or other signs of injury. Brad pelvis intact, stable and non-tender. Abdomen benign to exam. Chest tender anteriorly on the right, no flail chest, crepitus, or subcutaneous emphysema. CN II-XII intact. Skin clean, dry, warm, and intact. EXPOSURE: No visible injury to back, no vertebral brad tenderness. SECOND TRAUMA SURVEY FOLLOWS: Patient presents to ER per [facility]. He states he lost his balance last night and fell against the tub in his home. He lives at home with his . Patient states he hollered for his but she had already gone to bed and did not hear him. He states a military police officer came and helped him back into bed. Patient states he did not get dizzy prior to falling, he denies hitting his head or loss of consciousness. Pt admits to right sided rib/chest pain which he rates an 8/10. He denies SOB. Patient states his joints have been stiff recently and he feels he has gotten more and more weak. Pt denies fever or chills, N/V/D. Onset: Sudden Onset Date: 07/08/17 Location: Reports: Chest, Back Front/Back Body Image: 1 - Rates pain an 8, denies SOB 2 - C/o pain in the tailbone and lower back after fall Quality: Reports: Ache, Throbbing Severity: Moderate Improves with: Reports: None Worsens with: Reports: Movement Associated Symptoms: Reports: No Other Symptoms Right Hip Pain Score (Numeric/FACES): 8 - Related Data Allergies Allergy/AdvReac Type Severity Reaction Status Date / Time hydrochlorothiazide Allergy Fainting Verified 06/01/17 20:01 Home Meds: Home Meds Oxazepam 15 mg PO TID PRN 12/27/13 [History] Nitroglycerin 0.4 mg SL ASDIRECTED PRN 06/07/14 [History] Furosemide [Lasix] 40 mg PO DAILY 12/16/16 [History] Metoprolol Succinate [Toprol XL] 100 mg PO DAILY 12/16/16 [History] Acetaminophen 500 mg PO DAILY 05/26/17 [History] Clopidogrel [Plavix] 75 mg PO DAILY 05/26/17 [History] Cyanocobalamin (Vitamin B-12) [Vitamin B-12] 500 mcg PO DAILY 05/26/17 [History] Finasteride 5 mg PO DAILY 05/26/17 [History] Lisinopril 20 mg PO DAILY 05/26/17 [History] Pantoprazole 20 mg PO PCLUNCH 05/26/17 [History] atorvaSTATin [Lipitor] 20 mg PO BEDTIME 05/26/17 [History] hydrOXYzine HCl [hydrOXYzine] 25 mg PO Q8H PRN 05/26/17 [History] Warfarin [Coumadin] 2.5 mg PO .FRI 05/27/17 [History] Warfarin [Coumadin] 5 mg PO .M,T,W,TH,SA,MONTOYA 05/27/17 [History] Triamcinolone Acetonide [Triamcinolone Acetonide 0.1% Oint] 1 gm TOP BID PRN [History] Past Medical History HEENT History: Reports: Hard of Hearing, Impaired Vision Cardiovascular History: Reports: Afib, CAD, High Cholesterol, Hypertension Respiratory History: Reports: Pneumonia, Recurrent Gastrointestinal History: Reports: GERD Genitourinary History: Reports: UTI, Recurrent Other Genitourinary History: urinary retention, Pt has indwelling catheter for the last 2 months, Musculoskeletal History: Reports: Arthritis, Gout Neurological History: Reports: None Psychiatric History: Reports: Anxiety Endocrine/Metabolic History: Reports: None Hematologic History: Reports: None Immunologic History: Reports: None Oncologic (Cancer) History: Reports: None Dermatologic History: Reports: Other (See Below) Other Dermatologic History: sores to top of head - Infectious Disease History Infectious Disease History: Reports: Chicken Pox, Measles, Mumps - Past Surgical History Head Surgeries/Procedures: Reports: None Cardiovascular Surgical History: Reports: Coronary Artery Bypass, Coronary Artery Stent, Valve Replacement Social & Family History - Family History Family Medical History: Noncontributory - Tobacco Use Smoking Status *Q: Never Smoker Second Hand Smoke Exposure: No - Caffeine Use Caffeine Use: Reports: Coffee, Soda, Tea Other Caffeine Use: 24 oz daily - Alcohol Use Days Per Week of Alcohol Use: 7 Number of Drinks Per Day: 1 Total Drinks Per Week: 7 - Recreational Drug Use Recreational Drug Use: No - Living Situation & Occupation Living situation: Reports: , with Spouse Occupation: Retired Review of Systems - Review of Systems Review Of Systems: ROS reveals no pertinent complaints other than HPI. ED EXAM, GENERAL - Physical Exam Exam: See Below Exam Limited By: Physical Impairment General Appearance: Alert, WD/WN, Mild Distress Eye Exam: Bilateral Eye: EOMI, Normal Inspection, PERRL (3) Ears: Normal External Exam, Hearing Loss Nose: Normal Inspection Throat/Mouth: Normal Inspection, Normal Voice, No Airway Compromise Head: Atraumatic, Normocephalic, Other (hx of skin cancer) Neck: Normal Inspection, Supple, Non-Tender, Limited Range of Motion Respiratory/Chest: No Accessory Muscle Use, Decreased Breath Sounds, Other ( tender to touch right side/ribs) Cardiovascular: Normal Peripheral Pulses, Regular Rate, Rhythm, No Edema, No Gallop, No JVD, No Murmur, No Rub Peripheral Pulses: 1+: Radial (L), Radial (R), Dorsalis Pedis (L), Dorsalis Pedis (R) GI/Abdominal: Normal Bowel Sounds, Soft, Non-Tender, No Organomegaly, No Distention, No Abnormal Bruit, No Mass (Male) Exam: Deferred Rectal (Males) Exam: Deferred Back Exam: Normal Inspection, CVA Tenderness (R), Decreased Range of Motion Extremities: Normal Inspection, Non-Tender, No Pedal Edema, Normal Capillary Refill, Limited Range of Motion Neurological: Alert, Oriented, CN II-XII Intact, Normal Cognition, No Motor/ Sensory Deficits Psychiatric: Normal Affect, Normal Mood Skin Exam: Warm, Dry, Intact, Normal Color, Other (areas of healed skin cancer, actinic keratits) Lymphatic: No Adenopathy Course - Vital Signs Last Recorded V/S: Last Vital Signs Temp 99.9 F 07/09/17 09:07 Pulse 82 07/09/17 09:07 Resp 16 07/09/17 09:07 BP 171/82 H 07/09/17 09:07 Pulse Ox 100 07/09/17 09:07 - Orders/Labs/Meds Orders: Active Orders 24 hr Category Date Time Status EKG 12 Lead [EKG Documentation Completion] [RC] STAT Care 07/09/17 09:10 Active Labs: Laboratory Tests 07/09/17 07/09/17 07/09/17 Range/Units 09:04 09:04 09:04 WBC 13.0 H (5.0-10.0) 10^3/uL RBC 5.00 (4.6-6.2) 10^6/uL Hgb 12.9 L (14.0-18.0) g/dL Hct 40.0 (40.0-54.0) % MCV 80.0 (80-100) fL MCH 25.8 L (27.0-34.0) pg MCHC 32.3 L (33.0-35.0) g/dL Plt Count 215 (150-450) 10^3/uL Neut % (Auto) 69.2 (42.2-75.2) % Lymph % (Auto) 17.1 L (20.5-50.1) % [place] % (Auto) 12.9 H (2-8) % Eos % (Auto) 0.5 L (1.0-3.0) % Baso % (Auto) 0.3 (0.0-1.0) % Sodium 136 (135-145) mmol/L Potassium 4.1 (3.6-5.0) mmol/L Chloride 99 L (101-111) mmol/L Carbon Dioxide 27.0 (21.0-31.0) mmol/L Anion Gap 14.1 BUN 25 H (7-18) mg/dL Creatinine 1.3 (0.6-1.3) mg/dL Est Cr Clr Drug Dosing 39.28 mL/min Estimated GFR (MDRD) 52 BUN/Creatinine Ratio 19.23 Glucose 136 H (74-105) mg/dL Calcium 9.0 (8.4-10.2) mg/dl Total Bilirubin 1.3 H (0.2-1.0) mg/dL AST 25 (10-42) IU/L ALT 14 (10-60) IU/L Alkaline Phosphatase 95 (42-121) IU/L Troponin I 0.12 H* (0.00-0.02) ng/ml B-Natriuretic Peptide 308 H (0-100) pg/ml Total Protein 7.7 (6.7-8.2) g/dl Albumin 3.8 (3.2-5.5) g/dl Globulin 3.9 Albumin/Globulin Ratio 0.97 Urine Color (YELLOW) Urine Appearance (CLEAR) Urine pH (5.0-9.0) Ur Specific Wend[place] (1.005-1.030) Urine Protein (NEGATIVE) Urine Glucose (UA) (NEGATIVE) Urine Ketones (NEGATIVE) Urine Occult Blood (NEGATIVE) Urine Nitrite (NEGATIVE) Urine Bilirubin (NEGATIVE) Urine Urobilinogen (0.2-1.0) mg/dL Ur Leukocyte Esterase (NEGATIVE) Urine RBC /HPF Urine WBC (0-5/HPF) /HPF Ur Epithelial Cells /HPF Amorphous Sediment (0/HPF) /HPF Urine Mucus /LPF 07/09/17 Range/Units 09:20 WBC (5.0-10.0) 10^3/uL RBC (4.6-6.2) 10^6/uL Hgb (14.0-18.0) g/dL Hct (40.0-54.0) % MCV (80-100) fL MCH (27.0-34.0) pg MCHC (33.0-35.0) g/dL Plt Count (150-450) 10^3/uL Neut % (Auto) (42.2-75.2) % Lymph % (Auto) (20.5-50.1) % [place] % (Auto) (2-8) % Eos % (Auto) (1.0-3.0) % Baso % (Auto) (0.0-1.0) % Sodium (135-145) mmol/L Potassium (3.6-5.0) mmol/L Chloride (101-111) mmol/L Carbon Dioxide (21.0-31.0) mmol/L Anion Gap BUN (7-18) mg/dL Creatinine (0.6-1.3) mg/dL Est Cr Clr Drug Dosing mL/min Estimated GFR (MDRD) BUN/Creatinine Ratio Glucose (74-105) mg/dL Calcium (8.4-10.2) mg/dl Total Bilirubin (0.2-1.0) mg/dL AST (10-42) IU/L ALT (10-60) IU/L Alkaline Phosphatase (42-121) IU/L Troponin I (0.00-0.02) ng/ml B-Natriuretic Peptide (0-100) pg/ml Total Protein (6.7-8.2) g/dl Albumin (3.2-5.5) g/dl Globulin Albumin/Globulin Ratio Urine Color Yellow (YELLOW) Urine Appearance Slightly cloudy (CLEAR) Urine pH 7.5 (5.0-9.0) Ur Specific [place] 1.015 (1.005-1.030) Urine Protein 100 H (NEGATIVE) Urine Glucose (UA) Negative (NEGATIVE) Urine Ketones Negative (NEGATIVE) Urine Occult Blood Trace-lysed H (NEGATIVE) Urine Nitrite Negative (NEGATIVE) Urine Bilirubin Negative (NEGATIVE) Urine Urobilinogen 2.0 H (0.2-1.0) mg/dL Ur Leukocyte Esterase Negative (NEGATIVE) Urine RBC 5-10 H /HPF Urine WBC 5-10 H (0-5/HPF) /HPF Ur Epithelial Cells Rare /HPF Amorphous Sediment Rare (0/HPF) /HPF Urine Mucus Few H /LPF Meds: Medications Discontinued Medications Generic Name Dose Route Start Last Admin Trade Name Freq PRN Reason Stop Dose Admin Acetaminophen 650 mg 07/09/17 10:47 07/09/17 10:52 Tylenol PO 07/09/17 10:48 650 mg NOW ONE Administration Morphine Sulfate 2 mg 07/09/17 13:14 07/09/17 13:17 Morphine IVPUSH 07/09/17 13:15 2 mg ONETIME ONE Administration - Radiology Interpretation Free Text/Narrative:: Chest xray: Mild interval cardiovascular decompensation since 27 May 2017. Postoperative changes of the chest and chronic shoulder abnormalities. No rib fracture or pneumothorax. CT Head: No acute new intracranial abnormalitiy when compared directly to recent [address] Cervical Spine: Rotoscoliosis, exaggerated lordosis, multilevel disc disease and severe reactive arthritis. No fractures. CT Chest/Abdomen/Pelvis: Acute nondisplaced fractures several adjacent anterior lower right ribs without sign of underlying lung contusion or pneumothorax. 2. Sternotomy wires, mediastinal clips, aortic valve prosthesis, and bibasilar dependent pleural effusions (R>L). Extensive coronary artery calcifications. No alveolar edema. 3. Dorsal kyphosis, levorotatory lumbar scoliosis, and signs of chronic severe multilevel lumbar disc disease, i.e., interspace narrowing, endplate sclerosis and hypertrophic marginal spondylosis. No sign of fracture/dislocation thoracic , lumbar or sacral spine. 4. No lung mass or hilar lymphadenopathy. No focal lobar pneumonia. 5. Densely calcified ectatic but normal caliber abdominal aorta. No aneurysm or dissection. Normal spleen. Tiny dependent gallstones. Liver, stomach, atrophic pancreas, adrenal glands and unenhanced kidneys unremarkable. 6. No abdominal or pelvic mass lesion, mesenteric or retroperitoneal lymphadenopathy, signs of mechanical bowel obstruction, ascites or free intraperitoneal air. Cecum midline, pelvis. Normal appendix RLQ. No pelvic or hip fractures. 7. No sign of intraperitoneal, retroperitoneal or other hematoma. No ascites, pleural or pericardial effusions. See rad report - Re-Assessments/Exams Free Text/Narrative Re-Assessment/Exam: 07/09/17 13:41 GCS upon arrival: 15 GCS at 1 hour: 15 GCS at discharge: 15 Pt case discussed with [address] Arreola at [facility]. He agreed to accept the patient as transfer. The patient will be seen in the ER prior to admission. Departure - Departure Time of Disposition: 12:07 Disposition: DC/Tfer to Acute Hospital 02 Condition: Fair Clinical Impression: Pleural effusion, Troponin level elevated Multiple rib fractures Qualifiers: Encounter type: initial encounter Fracture type: closed Laterality: right Qualified Code(s): S22.41XA - Multiple fractures of ribs, right side, initial encounter for closed fracture Fall Qualifiers: Encounter type: initial encounter Qualified Code(s): W19.XXXA - Unspecified fall, initial encounter - Discharge Information Forms: Interfacility Transfer EMTALA, ED Department Discharge - My Orders Last 24 Hours: My Active Orders 07/09/17 09:10 EKG 12 Lead [EKG Documentation Completion] [RC] STAT - Assessment/Plan Last 24 Hours: My Active Orders 07/09/17 09:10 EKG 12 Lead [EKG Documentation Completion] [RC] STAT
--- NOTE | 2017-07-09 10:29 | CR ---
CLINICAL HISTORY: 87-year-old male injured in fall. INTERPRETATION: Chronic rotator cuff damage both shoulders with severe reactive arthritic changes on the right. No sign of rib fracture, or pneumothorax. 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 Dependent new subpulmonic bibasilar pleural effusions when compared to 27 May 2017 exam this pat ient with generalized slight increase pulmonary venous congestion. Clinical CHF? BNP? No lung mass, hilar lymphadenopathy or focal lobar pneumonia. CONCLUSION: Mild interval cardiovascular decompensation since 27 May 2017. Postoperative changes of the chest and chronic shoulder abnormalities. No rib fracture or pneumothorax.
[2017-07-09] MEDS ORDERED: Acetaminophen 325 MG Tab PO ONE (10:47)
--- NOTE | 2017-07-09 10:49 | CT ---
CLINICAL HISTORY: 87-year-old male injured in a fall. "No acute new intracranial abnormality" CT scan head. SCAN TECHNIQUE: Volume acquisition of data from an emergency unenhanced CT scan of the cervical spine obtained with the patient was lying supine on the Siemens multislice scanner [place], [place]. All data archived in the PACS system for storage, reformatting axial/sagitt al/coronal planes and study. INTERPRETATION: Markedly abnormal but no sign of acute fracture or spondylolisthesis. Dextrorotoscoliosis cervical and upper thoracic spine. Chronic severe reactive arthritic sclerosis at lantoaxial joint. *Exaggerated cervical lordosis and signs of chronic multilevel mid and lower cervical disc disease, i .e., interspace narrowing with endplate sclerosis and hypertrophic marginal/uncinate spur formation C 4-5, C5-6, C6-7 and C7-T1 levels. Chronic mild anterolisthesis C7-T1 level (no sign of associated fracture or jumped locked facet). No sign of pathologic skeletal lesion, prevertebral soft tissue swelling, acute fracture or other dis location. Symmetric clear pneumatization of the mastoid sinuses. TMJs unremarkable. (4 cm diameter thoracic aor ta at the arch). CONCLUSION: Rotoscoliosis, exaggerated lordosis, multilevel disc disease and severe reactive arthriti s. No fractures.
--- NOTE | 2017-07-09 10:50 | CT ---
CLINICAL HISTORY: 87-year-old male injured in fall. SCAN TECHNIQUE: Volume acquisition of data from an emergency unenhanced CT scan of the head and brain obtained while the patient was lying supine on the Siemens multislice scanner [place], [place]. All data archived in the PACS system for storage and study (bone/brain win dows). INTERPRETATION: Uniformly thick bony calvarium without sign of skull fracture, underlying brain contusion or epidural /subdural hematoma. Symmetric severe cerebral cortical and cerebellar atrophy with underlying mirror-image normal ventric ular system (patient rotated). Chronic multi-infarct ischemic changes periventricular white matter. No sign of acute intracerebral/intraventricular/subarachnoid bleed. No new supratentorial or posterior fossa mass lesion. CONCLUSION: No acute new intracranial abnormality when compared directly to recent 26 May 2017 josh gallagher.
--- NOTE | 2017-07-09 11:15 | CT ---
CLINICAL HISTORY: 87-year-old male on Coumadin injured in a fall "against bathtub" last night. CT rev ealed "no sign of skull fracture, closed head injury, or cervical spine fracture" this patient with r ight rib and tailbone pain. SCAN TECHNIQUE: Volume acquisition of data from an unenhanced CT scan of the chest, abdomen and pelvi s obtained while this elderly male was lying supine on the Siemens multislice scanner [place], [place]. All data archived in the PACS system for storage, reformatting and study. INTERPRETATION: Abnormal. 1. Acute nondisplaced fractures several adjacent anterior lower right ribs without sign of underlying lung contusion or pneumothorax. 2. Sternotomy wires, mediastinal clips, aortic valve prosthesis, and bibasilar dependent pleural effu sions (R>L). Extensive coronary artery calcifications. No alveolar edema. 3. Dorsal kyphosis, levorotatory lumbar scoliosis, and signs of chronic severe multilevel lumbar disc disease, i.e., interspace narrowing, endplate sclerosis and hypertrophic marginal spondylosis. No si gn of fracture/dislocation thoracic, lumbar or sacral spine. 4. No lung mass or hilar lymphadenopathy. No focal lobar pneumonia. 5. Densely calcified ectatic but normal caliber abdominal aorta. No aneurysm or dissection. Normal sp maria c. Tiny dependent gallstones. Liver, stomach, atrophic pancreas, adrenal glands and unenhanced kid neys unremarkable. 6. No abdominal or pelvic mass lesion, mesenteric or retroperitoneal lymphadenopathy, signs of mechan ical bowel obstruction, ascites or free intraperitoneal air. Cecum midline, pelvis. Normal appendix R LQ. No pelvic or hip fractures 7. No sign of intraperitoneal, retroperitoneal or other hematoma. No ascites, pleural or pericardial effusions. CONCLUSION: Several nondisplaced anterior lower right rib fractures. Bibasilar effusions. Heart surge ry. Abnormal spine.
[2017-07-09] MEDS ORDERED: Morphine 2 MG/ML Syringe IVPUSH ONE (13:14)
--- NOTE | 2017-07-12 12:17 | EKG ---
07/09/2017 - MARY AMARAL C - FINDINGS: A 12-lead EKG shows normal sinus rhythm with heart rate of 80. No significant ST elevation or ST depression noted on this 12-lead EKG except for nonspecific ST-T wave changes noted on lead V2, V3, and V4. Also first-degree AV block noted with NM interval of 292 and left ventricular hypertrophy signs. [facility] /[id number]
== END 2017-07-09 13:15 ==
LOC: DL.ED 09:06
DX: S22.41XA Multiple fractures of ribs, right side, initial encounter for closed fracture (principal); J90 Pleural effusion, not elsewhere classified; R79.89 Other specified abnormal findings of blood chemistry; E78.00 Pure hypercholesterolemia, unspecified; I10 Essential (primary) hypertension; Z88.8 Allergy status to other drugs, medicaments and biological substances; Z79.899 Other long term (current) drug therapy; W19.XXXA Unspecified fall, initial encounter; Y92.009 Unspecified place in unspecified non-institutional (private) residence as the place of occurrence of the external cause
CPT/HCPCS: 36415; 70450; 71046; 71250; 72125; 74176; 80053; 81001; 83880; 84484; 85025; 87804; 93005; 96374; 99291; 99292; A9270; 93010; J2270